=== PATIENT | female | born 1955 | race Caucasian/White ===

== ENCOUNTER 2017-05-01 10:25 | Inpatient (IN) ==
[2017-05-01] MEDS ORDERED: ONDANSETRON 4 MG/2 ML VIAL IV PRN (10:46)
[2017-05-01] MEDS ORDERED: ONDANSETRON 4 MG/2 ML VIAL ONE (10:57)
--- NOTE | 2017-05-01 10:58 | Emergency Department Note ---
Arrival - Arrival Chief Complaint: Shortness of Breath Stated Complaint: chest pain,SOB,nauseated ED Nursing Triage Note: Pt c/o SOB and CP x 4 days. 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 Mode of Arrival: Wheelchair Limitations: No Limitations Source: Patient, RN Notes Reviewed Time Seen by Provider: 05/01/17 10:45 - History of Present Illness HPI Narrative: Patient is a 62-year-old white female routinely followed by Dr. Cooper with a known history of valvular heart disease. Patient complains today of a 3-4 day history of chest pain and shortness of breath. Chest pain is a tightness and was relieved by nitroglycerin. Patient complains of dyspnea on exertion. She underwent a left heart cath on March 14, 2017 which revealed no obstructive coronary artery disease but revealed 2-3+ aortic regurgitation with moderate elevation of LVEDP at 20 mmHg. Onset (ago): day(s) (4) Consistency: intermittent Severity: moderate Allergies/Adverse Reactions: Allergies Allergy/AdvReac Type Severity Reaction Status Date / Time No Known Allergies Allergy Unverified 10/17/16 15:05 Home Medications: Home Medications Medication Instructions Recorded Confirmed Type ALPRAZolam [Xanax] 1 mg PO BEDTIME 04/05/16 03/14/17 History HYDROcodone/ACETAMIN 10-325 [[place]ocoa 1 tablet PO Q8H PRN 04/05/16 03/14/17 History 10-325] Morphine Sulfate [Morphine Sulfate 60 mg PO TID 04/05/16 03/14/17 History ER] Carvedilol 6.25 mg PO BID 03/13/17 03/14/17 History Nitroglycerin Sl Tab [Nitrostat] 0.4 mg SL Q5M PRN 03/13/17 03/14/17 History Omeprazole 20 mg PO DAILY 03/13/17 03/14/17 History traZODone [Desyrel] 50 mg PO BEDTIME 03/13/17 03/14/17 History ALPRAZolam [Alprazolam] 0.5 mg PO DIRECTED 03/14/17 03/14/17 History Aspirin [Ecotrin] 81 mg PO DAILY 03/14/17 03/14/17 History Review of System - Review of System 12 point system: reviewed and no additional remarkable complaints except as stated - Review of System Cardiovascular: Present: chest pain, dyspnea on exertion, orthopnea. Absent: palpitations, edema Gastrointestinal: Present: nausea. Absent: vomiting Medical,Surgical,& Family Hx - Medical History Cardio: History of: Hypertension, Valvular Heart Disease Psychological: History of: Anxiety Disorders, Depression Neurology: No history of: Seizures Respiratory: History of: Respiratory Problems ("spot" on right lung) Musculoskeletal: History of: Back/Neck Problems (chronic neck/back pain), Osteoporosis - Surgical History Cardiac Surgeries: Sugical HX of: Cardiac Catheterization (Dr Cooper) - Social History Smoking Status: Never smoker Exam Vital Signs: Vital Signs Temperature 96.5 F L 05/01/17 10:30 Pulse Rate 107 H 05/01/17 10:30 Respiratory Rate 22 05/01/17 10:30 Blood Pressure 131/78 05/01/17 10:30 O2 Sat by Pulse Oximetry 97 05/01/17 10:30 GENERAL: This is a well-nourished well-developed white female in no apparent distress. VITAL SIGNS: Reviewed HEENT: Head is atraumatic and normocephalic. Pupils are equal round react to light. Extraocular movements are intact. Oropharynx is benign with moist mucous membranes. NECK: Neck is soft and supple without tenderness. There are no masses. There is no lymphadenopathy. LUNGS: Lungs are clear to auscultation. Chest rises symmetrically. There is no chest wall tenderness. CV: Heart is rapid rate regular rhythm with 2/6 systolic ejection murmur loudest at the left sternal border and 2/6 blowing diastolic murmur loudest at the left sternal border. ABDOMEN: Abdomen is soft, nontender to palpation. There are no abdominal abnormal masses palpated. There is no organomegaly. Bowel sounds are present and active. SKIN: Skin is warm and dry. No rash. EXTREMITIES: Patient has full range of motion without tenderness. There is no pedal edema. NEUROLOGIC: Awake alert and oriented 4. Cranial nerves II through XII are grossly intact. Motor is 5 over 5 in all extremities bilaterally. Course - Consultations Consultation #1: Discussed with Dr. Akhtar. Patient will be seen in the emergency department. Time: 11:56 Results - Labs CBC & BMP: 05/01/17 11:01 05/01/17 11:01 Lab Results: I have reviewed the patients labs Labs: Laboratory Tests 05/01/17 11:01 INR 1.1 Laboratory Tests 05/01/17 11:01 Troponin I 1.350 H - EKG EKG results: interpreted by ERMD - Impressions EKG: Sinus tachycardia with a rate of 106, T-wave inversion anterolaterally with ST segment depression inferiorly consistent with ischemia. - Diagnostic Findings Procedure: Chest x-ray: image reviewed by me (Increased pulmonary markings bilaterally.) Disposition Clinical Impression: Chest pain, Aortic insufficiency, Dyspnea, Non-ST elevation TN (NSTEMI) Case discussed with: patient Disposition: Still a Patient Condition: Guarded Time of Disposition: 12:00
[2017-05-01] MEDS ORDERED: METOPROLOL TARTRATE 5 MG/5 ML VIAL IV STA (11:01)
--- NOTE | 2017-05-01 11:04 | XRay Report ---
XR chest 1V portable Indication: Shortness of breath Comparison: 14 March 2017 Findings: The heart and mediastinum are normal in size and configuration. The pulmonary vascularity is normal in caliber. No lung infiltrates, effusions, pneumothorax or other abnormality is demonstrated. Impression: No acute cardiopulmonary disease. PROCEDURE INTERPRETED AT [facility] DEPARTMENT OF RADIOLOGY Final Report Signed by: Dr. Gianluca Arango
[2017-05-01 11:17] LABS: Basophils % 0.2 % (0.0-0.8); Eosinophils # 0.1 10*3/uL (0.0-0.87); Hematocrit 39.9 VOL% (35.7-47.0); Hemoglobin 13.8 GM/DL (12.0-16.0); Immature Granulocytes % 0.2 %; Immature Granulocytes Absolute 0.02 #; Lymphocytes # 1.7 10*3/uL (1.4-4.0); Lymphocytes % 19.8 % (21.3-54.2); Mean Corpuscular HGB Conc 34.6 GM/DL (32-36); Mean Corpuscular Hemoglobin 30 PG (27-34); Mean Corpuscular Volume 86.7 FL (87-102); Mean Platelet Volume 10.2 FL (9.6-12.0); Monocytes # 0.4 10*3/uL (0.11-0.8); Neutrophils # 6.4 10*3/uL (1.4-7.4); Neutrophils % 73.8 % (38.7-73.9); Platelet Count 244 T/CUMM (130-400); Red Cell Distribution Width 12.5 % (9.3-17.3); White Blood Count 8.6 T/CUMM (4-12)
[2017-05-01 11:25] LABS: INR 1.1; PT Patient Result 11.1 SECS; Partial Thromboplastin Time 30.5 SECS (0-40)
[2017-05-01] MEDS ORDERED: METOPROLOL TARTRATE 5 MG/5 ML VIAL IV ONE (11:48)
[2017-05-01 11:54] LABS: Albumin 3.9 G/DL (3.4-5.0); Bilirubin,Total 0.5 MG/DL (0.2-1.0); Calcium 9.5 MG/DL (8.5-10.1); Osmolality,Calculated 276.5 MOS/KG (273-304); Potassium 3.7 MMOL/L (3.5-5.1); Total Protein 7.7 G/DL (6.4-8.3)
[2017-05-01 11:56] LABS: Troponin I Only 1.35 NG/ML (0.00-0.045)
[2017-05-01] MEDS ORDERED: ENOXAPARIN 60 MG/0.6 ML SYRINGE SUBCUT STA (11:57)
[2017-05-01] MEDS ORDERED: NITROGLYCERIN 2% OINT 1 INCH/GM PACK TOP STA (11:58)
[2017-05-01] MEDS ORDERED: ASPIRIN 325 MG TABLET PO STA (11:59)
[2017-05-01 12:03] LABS: Apearance,Urine CLEAR (Clear); Bilirubin,Urine Negative (Negative); Blood, Urine Negative (Negative); Glucose,Urine (UA) Negative (Negative); Ketones,Urine Negative (Negative); Mucus,Urine Occasional /LPF (Occasional); Nitrite,Urine Negative (Negative); Protein,Urine Negative; RBC,Urine 1 /HPF (0-4); Squamous Epithelial Cell,Urine Occasional /HPF (0-10); Urine Color Yellow (Yellow); Urine Specific Gravity 1.008 (1.001-1.035); Urine Urobilinogen < 2.0 EU/DL (0.2-1.0); WBC,Urine 2 /HPF (0-6)
[2017-05-01] MEDS ORDERED: ENOXAPARIN 60 MG/0.6 ML SYRINGE ONE (12:17)
[2017-05-01] MEDS ORDERED: NITROGLYCERIN 2% OINT 1 INCH/GM PACK TOP ONE (12:17)
[2017-05-01] MEDS ORDERED: ASPIRIN 325 MG TABLET ONE (12:18)
[2017-05-01] MEDS ORDERED: ACETAMINOPHEN 325 MG TABLET PO PRN (13:00)
[2017-05-01] MEDS ORDERED: MAGNESIUM SULF RIDER 2 GM in PREMIX 1 EACH IV PRN (13:00)
[2017-05-01] MEDS ORDERED: MAGNESIUM SULF RIDER 4 GM in PREMIX 1 EACH IV PRN (13:00)
[2017-05-01] MEDS ORDERED: POTASSIUM CHLORIDE 20 MEQ TABLET PO PRN (13:00)
--- NOTE | 2017-05-01 13:49 | Cardiology History & Physical ---
Assessment and Plan - Time spent with patient Time spent with patient: Greater than 30 minutes (1) Chest pain Status: Acute Assessment and plan: SEE PLAN OF CARE LISTED BELOW. Current Visit: Yes (2) Aortic regurgitation Status: Acute Assessment and plan: SEE PLAN OF CARE LISTED BELOW. Current Visit: Yes (3) Anxiety and depression Status: Chronic Assessment and plan: SEE PLAN OF CARE LISTED BELOW. Current Visit: Yes (4) Dyspnea on exertion Status: Chronic Assessment and plan: SEE PLAN OF CARE LISTED BELOW. Current Visit: Yes (5) Mild CAD Status: Acute Assessment and plan: SEE PLAN OF CARE LISTED BELOW. Current Visit: No (6) Elevated troponin Status: Acute Assessment and plan: SEE PLAN OF CARE LISTED BELOW. Current Visit: Yes (7) Congestive heart failure Status: Acute Assessment and plan: SEE PLAN OF CARE LISTED BELOW. Current Visit: Yes Qualifiers: Congestive heart failure type: unspecified congestive heart failure type Congestive heart failure chronicity: acute Qualified Code(s): I50.9 - Heart failure, unspecified (8) Hypertension Status: Chronic Assessment and plan: SEE PLAN OF CARE LISTED BELOW. Current Visit: Yes (9) Pulmonary nodule Status: Chronic Assessment and plan: SEE PLAN OF CARE LISTED BELOW. Current Visit: Yes (10) GERD (gastroesophageal reflux disease) Status: Chronic Assessment and plan: SEE PLAN OF CARE LISTED BELOW. Current Visit: Yes (11) UTI (urinary tract infection) Status: Acute Assessment and plan: SEE PLAN OF CARE LISTED BELOW. 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 Dasilva is a 62 year old female with known history of mild, nonobstructive coronary artery disease, routinely followed by Dr. Childers. Cardiac risk factors include: Hypertension, sedentary lifestyle, advanced age and family history of coronary artery disease (mother). Lifetime non-smoker. Past medical history includes: Osterreicher syndrome, 2-3+ aortic regurgitation, right long solitary pulmonary nodule without change (most likely not cancer per Dr. Rodney Aviles), GERD, anxiety and depression. Echocardiogram March 07, 2017 revealed normal systolic function, EF 55%. Grade 1 diastolic dysfunction. Mild (1+) MR. Mild TR and moderate to severe aortic regurgitation. Estimated pulmonary artery systolic pressure 30 mmHg. Patient just recently underwent heart catheterization March 14, 2017 which revealed no significant obstructive coronary disease and 2-3+ aortic regurgitation. Normal left ventricular systolic function, 60%. No significant aortic valve gradient. At that time, anxiety was felt to be playing a role in her chest pain and shortness of breath. Dr. Cooper did not believe that her aortic regurgitation was severe enough to need intervention at this time. Plan was to watch this closely and recheck echocardiogram in the next 6-12 months. Patient presented to [facility] for further evaluation of chest pain and shortness of breath. She reports that she was laying down in bed when she suddenly began experiencing left-sided chest pain. She tells me that it was located right under her left breast. She describes it as a stabbing /pressure type pain. She took a sublingual nitroglycerin which then relieved her pain. Altogether this lasted approximately 1 minute and 30 seconds. Was without radiation. Associated with shortness of breath, nausea and diaphoresis. She then reports that her chest pain returned approximately 30 minutes later. She took another nitroglycerin which then quickly resolved her pain a second time. This also lasted around 1 minute and 30 seconds. She is unable to identify any specific alleviating or aggravating factors. Unable to identify if there is no exertional component as she reports that she is very sedentary at home. Patient tells me that she has been under a lot of stress at home. She is currently taking care of her as he just recently underwent a major surgery. This is caused her a lot of stress and headache lately. Confirms orthopnea. She also confirms dyspnea on exertion. This is chronic for her and has been ongoing for at least one year. She reports that it has not necessarily changed or worsened since she underwent heart catheterization February of this year. Patient was concerned and felt that she be further evaluated in the emergency department. When she arrived in the ER, she received therapeutic dose of Lovenox as well as full dose aspirin. Cardiology was called to admit the patient. She will be admitted to the telemetry unit. Patient was seen and examined in the emergency department. She is currently without complaints of chest pain, heaviness or tightness. Denies shortness of breath. Troponin is bumped at 1.35. EKG does reveal T-wave inversions in anteriolateral and inferior leads. This is changed from her previous tracings. On exam, patient chest pain is not reproducible to light palpation. Patient just recently underwent heart catheterization February 2017 which revealed only mild CAD, no obstructive CAD noted. However, given patient's presentation, elevated cardiac biomarkers and EKG changes patient may benefit from repeat heart catheterization. I will keep patient n.p.o. Continue to cycle cardiac biomarkers and EKGs. Continue aspirin and beta-blockade. I will add lipid panel to patient's lab draw. I will further discuss with Dr. Akhtar and await his additional recommendations. IMPRESSION AND PLAN: 1. CHEST PAIN - Relieved with nitroglycerin. Troponin I 1.35. EKG does reveal T-wave inversion in anteriolateral and inferior leads. This is changed from her previous tracings. Patient just recently underwent heart catheterization February 2017 which revealed only mild CAD, no obstructive CAD noted. However, given patient's presentation, elevated cardiac biomarkers and EKG changes patient may benefit from repeat heart catheterization. Patient did receive therapeutic dose of Lovenox as well as full dose aspirin in the emergency department. I will keep patient n.p.o. Continue to cycle cardiac biomarkers and EKGs. Continue aspirin, nitrate and beta-blockade. I will add lipid panel to patient's lab draw. I will further discuss with Dr. Akhtar and await his additional recommendations. 2. ELEVATED TROPONIN - Troponin I 1.35. Continue to cycle cardiac biomarkers and EKGs. See above. 3. DYSPNEA ON EXERTION - This is chronic. This is most likely secondary to her moderate to severe aortic regurgitation. No need to repeat echocardiogram as she just had one last month. Will discuss with Dr. Akhtar regarding further management of this. Patient may be eligible for aortic valve replacement. I will add d-dimer to patient's lab draw. 4. CONGESTIVE HEART FAILURE - BNP 1654. I suspect that this is related to patient's aortic regurgitation. I will add IV Lasix. Monitor strict I's and O' s and daily weights. Continue beta-blockade. Blood pressure is unable to tolerate initiation of GENNY inhibitor or ARB. Will attempt to introduce this medication prior to discharge. 5. HYPERTENSION - Well controlled with beta-blockade. Will monitor blood pressure and adjust medications accordingly. 6. MODERATE TO SEVERE AORTIC REGURGITATION - Moderate to severe aortic regurgitation noted her echocardiogram February of this year. At that time, Dr. childers did not feel like this would require surgery. Original plan was to watch this and repeat echocardiogram in 6-12 months. I will further discuss with Dr. Akhtar and await his additional recommendations. 7. CHRONIC PULMONARY NODULE - Followed by Dr. Aviles. Per Dr. Cooper's note this is unchanged and Dr. Aviles does not feel like this is cancer. Continue to follow with Dr. Aviles on an outpatient basis. 8. GERD - Continue PPI. 9. ANXIETY/DEPRESSION - Continue home medications. Will adjust as needed. 10. ACUTE UTI - Bactrim initiated. Will await urine culture. Home Medications Medication Instructions Recorded Confirmed Type ALPRAZolam [Xanax] 1 mg PO BEDTIME 04/05/16 05/01/17 History HYDROcodone/ACETAMIN 10-325 [[place] 1 tablet PO Q8H PRN 04/05/16 05/01/17 History 10-325] Morphine Sulfate [Morphine Sulfate 60 mg PO TID 04/05/16 05/01/17 History ER] Carvedilol 6.25 mg PO BID 03/13/17 05/01/17 History Nitroglycerin Sl Tab [Nitrostat] 0.4 mg SL Q5M PRN 03/13/17 05/01/17 History Omeprazole 20 mg PO DAILY 03/13/17 05/01/17 History traZODone [Desyrel] 50 mg PO BEDTIME 03/13/17 05/01/17 History ALPRAZolam [Alprazolam] 0.5 mg PO BID@0800,1200 03/14/17 05/01/17 History Aspirin [Ecotrin] 81 mg PO DAILY 03/14/17 05/01/17 History Allergies Allergy/AdvReac Type Severity Reaction Status Date / Time No Known Allergies Allergy Unverified 10/17/16 15:05 - Constitutional Constitutional: Present: as per HPI, fatigue, headache(s), lethargy, malaise. Absent: chills, fever(s), weight gain, weight loss - Cardiovascular Cardiovascular: Present: as per HPI, chest pain at rest, diaphoresis, dyspnea, dyspnea on exertion, lightheadedness, orthopnea, PND. Absent: edema, radiating jaw, neck or arm pain, palpitations - Respiratory Respiratory: Present: as per HPI, dyspnea, dyspnea on exertion. Absent: hemoptysis, wheezing, snoring, pain on inspiration, change in phlegm color - Gastrointestinal Gastrointestinal: Present: as per HPI, heartburn, nausea. Absent: change in bowel habits, coffee ground emesis, hematemesis, hematochezia, melena, vomiting - Neurological Neurological: Present: as per HPI, dizziness. Absent: abnormal speech, behavioral changes, frequent falls, syncope - Psychiatric Psychiatric: Present: as per HPI, anxiety, depression, other (Stress) - Hematologic/Lymphatic Hematologic/Lymphatic: Present: as per HPI. Absent: easy bleeding, easy bruising Medical,Surgical,& Family Hx - Medical History Cardio: History of: CAD (Mild CAD), Hypertension, Valvular Heart Disease Psychological: History of: Anxiety Disorders, Depression Neurology: No history of: Seizures Respiratory: History of: Respiratory Problems ("spot" on right lung) Musculoskeletal: History of: Back/Neck Problems (chronic neck/back pain), Osteoporosis - Surgical History Cardiac Surgeries: Sugical HX of: Cardiac Catheterization (Dr Cooper) - Family History Family History: Reports;: Family Heart Disease - Social History Smoking Status: Never smoker Type of Drug Use: None Marital Status: Lives With:: Spouse Functional capacity: independent ambulation Cardiology Physical Exam - Constitutional Vitals: Vital Signs Temp Pulse Resp BP Pulse Ox 96.5 F L 81 18 110/60 100 05/01/17 10:30 05/01/17 12:30 05/01/17 12:30 05/01/17 12:30 05/01/17 12:30 Intake and Output 04/30/17 05/01/17 05/01/17 22:59 06:59 14:59 Other: Weight 106 lb Patient Weight 05/02/17 06:59 Weight 106 lb Exam: General: Appears well with no apparent distress. Pleasant and cooperative. Appears comfortable. HEENT: PERRL, normocephalic, atraumatic. Mucous membranes moist. No jaundice noted. Conjunctiva moist and clear, sclerae anicteric Neck: No JVD/HJR, no thyromegaly or lymphadenopathy noted. No carotid bruit appreciated Cardiac: Regular rate and rhythm. Grade 3 systolic murmur. Lungs: Clear to auscultation without accessory muscle use to assist the respiratory pattern. Oxygen via nasal cannula. Abdomen: Soft, bowel sounds normoactive. Nontender and nondistended. No abdominal bruit or thrill noted. No masses noted. Extremities: No clubbing, cyanosis noted. No edema noted. Upper extremity pulses 2+. Lower extremity pulses 2+. Capillary refill less than 3 seconds. Skin: No unusual lesions or rashes. No skin breakdown appreciated. Neuro: Awake, alert and oriented 3. Moves all extremities well without hemiparesis or paralysis. No essential tremor is appreciated. Result/EKG - Labs CBC & BMP: 05/01/17 11:01 05/01/17 11:01 Lab Results: I have reviewed the past 24 hour labs Labs: Laboratory Results - last 24 hr 05/01/17 05/01/17 05/01/17 11:01 11:01 11:01 WBC 8.6 RBC 4.60 Hgb 13.8 Hct 39.9 MCV 86.7 L MCH 30 MCHC 34.6 RDW 12.5 Plt Count 244 MPV 10.2 Neut % (Auto) 73.8 Lymph % (Auto) 19.8 L [place] % (Auto) 5.0 Eos % (Auto) 1.0 Baso % (Auto) 0.2 Neut # (Auto) 6.4 Lymph # (Auto) 1.7 [place] # (Auto) 0.4 Eos # (Auto) 0.1 Baso # (Auto) 0.0 Immature Gran % 0.2 Nucleated RBC % 0.0 Immature Gran # 0.02 Nucleated RBCs # 0.00 Immature Plt Fraction 0.0 INR 1.1 PT Patient/Control Mix 11.1 Circ Anticoag PTT 30.5 Sodium 139 Potassium 3.7 Chloride 103 Carbon Dioxide 28 Anion Gap 11.7 BUN 9 Creatinine 0.70 GFR Calculation 75 BUN/Creatinine Ratio 12.00 Glucose 111 H Calculated Osmolality 276.5 Calcium 9.5 Total Bilirubin 0.50 AST 19 ALT 15 Alkaline Phosphatase 101 Troponin I 1.350 H B-Natriuretic Peptide Total Protein 7.7 Albumin 3.9 Globulin 3.8 H Albumin/Globulin Ratio 1.0 L Urine Color Urine Appearance Urine pH Ur Specific [place] Urine Protein Urine Glucose (UA) Urine Ketones Urine Blood Urine Nitrate Urine Bilirubin Urine Urobilinogen Urine Leukocytes Urine RBC Urine WBC Ur Squamous Epith Cells Urine Mucus Ur Culture Indicated? 05/01/17 05/01/17 11:01 11:01 WBC RBC Hgb Hct MCV MCH MCHC RDW Plt Count MPV Neut % (Auto) Lymph % (Auto) [place] % (Auto) Eos % (Auto) Baso % (Auto) Neut # (Auto) Lymph # (Auto) [place] # (Auto) Eos # (Auto) Baso # (Auto) Immature Gran % Nucleated RBC % Immature Gran # Nucleated RBCs # Immature Plt Fraction INR PT Patient/Control Mix Circ Anticoag PTT Sodium Potassium Chloride Carbon Dioxide Anion Gap BUN Creatinine GFR Calculation BUN/Creatinine Ratio Glucose Calculated Osmolality Calcium Total Bilirubin AST ALT Alkaline Phosphatase Troponin I B-Natriuretic Peptide 1654 H Total Protein Albumin Globulin Albumin/Globulin Ratio Urine Color Yellow Urine Appearance Clear Urine pH 6.0 Ur Specific [place] 1.008 Urine Protein Negative Urine Glucose (UA) Negative Urine Ketones Negative Urine Blood Negative Urine Nitrate Negative Urine Bilirubin Negative Urine Urobilinogen < 2.0 H Urine Leukocytes Moderate H Urine RBC 1 Urine WBC 2 Ur Squamous Epith Cells Occasional Urine Mucus Occasional Ur Culture Indicated? Results to follow
[2017-05-01] MEDS: SULFAMETHOX/TRIMETHOPRIM 800-160 MG TABLET PO SCH ×2 (16:18→21:06)
[2017-05-01] MEDS: FUROSEMIDE 40 MG/4 ML VIAL IV SCH ×2 (16:18→21:07)
[2017-05-01] MEDS: ONDANSETRON 4 MG/2 ML VIAL IV PRN ×2 (16:19→23:26)
--- NOTE | 2017-05-01 16:19 | Order Completion Report ---
See report scanned to EMR
[2017-05-01] MEDS: MORPHINE ER 30 MG TABLET PO SCH ×2 (16:26→21:05)
--- NOTE | 2017-05-01 16:47 | CT Report ---
CT ANGIOGRAM CHEST Technique: Axial CT images of the chest were obtained during the arterial and venous phases of contrast injection. 3-D vascular MIPS reconstructions and multiplanar reformats were evaluated. Omnipaque 350, 100 cc. Clinical history: Shortness of breath, nausea, chest pain Comparison: Chest CT dated 07/13/2016 CTA FINDINGS: No evidence of a descending or descending thoracic aortic aneurysm. No evidence of aortic dissection or focal ulceration. No significant atherosclerotic plaque is identified in 5. Proximal great vessels are mildly tortuous but otherwise widely patent. Pulmonary arteries are also widely patent with no filling defects to suggest pulmonary emboli. NON-CTA FINDINGS: The visualized neck base is unremarkable for abnormal enhancement or adenopathy. Thyroid gland appears within normal limits.. Heart and great vessels appear grossly unremarkable. There is no pericardial effusion. Lungs are predominantly clear with minimal posterior basilar atelectatic changes. Minimal opacity along the right major fissure is indeterminate but may represent subsegmental atelectasis. Additional 1.2 cm noncalcified nodule within the periphery of the right lower lobe is unchanged from the June 2016 study and may represent a noncalcified granulomatous lesion. Central airways are patent. The included upper abdomen demonstrates no acute abnormality. There is mild distention of the bile ducts. This is similar to prior. There is no gallstones identified.. Prominent scoliotic deformity of the thoracolumbar spine is noted with multiple levels treated with PMMA cement for prior vertebral body compression fractures. Impression: No evidence of acute arterial injury or other abnormality within the chest or upper abdomen. No evidence of pulmonary emboli. No other acute abnormality within the chest or upper abdomen to explain patient's symptoms. Other incidental findings as above. PROCEDURE INTERPRETED AT [facility] DEPARTMENT OF RADIOLOGY Final Report Signed by: Lamont Payan
[2017-05-01] MEDS: NITROGLYCERIN 2% OINT 1 INCH/GM PACK TOP SCH (17:30)
[2017-05-01 18:10] LABS: Troponin I Only 1.34 NG/ML (0.00-0.045)
[2017-05-01] MEDS ORDERED: INFLUENZA VIRUS VACCINE 0.5 ML SYRINGE IM ONE (18:21)
--- NOTE | 2017-05-01 19:54 | Order Completion Report ---
See report scanned to EMR
[2017-05-01] MEDS ORDERED: CARVEDILOL 12.5 MG TABLET PO SCH (21:00)
[2017-05-01] MEDS ORDERED: MORPHINE ER 30 MG TABLET PO SCH (21:00)
[2017-05-01] MEDS ORDERED: CARVEDILOL 6.25 MG TABLET PO SCH (21:00)
[2017-05-01] MEDS: ALPRAZolam 0.5 MG TABLET PO SCH (21:04)
[2017-05-01] MEDS: ATORVASTATIN 40 MG TABLET PO SCH (21:05)
[2017-05-01] MEDS: ZALEPLON 5 MG CAPSULE PO PRN (21:05)
[2017-05-01] MEDS: CARVEDILOL 12.5 MG TABLET PO SCH (21:06)
[2017-05-01 21:24] LABS: CKMB % 6.4 %
[2017-05-01 21:30] LABS: Troponin I Only 0.904 NG/ML (0.00-0.045)
[2017-05-01 23:21] LABS: CKMB % 5.9 %
[2017-05-01 23:24] LABS: Troponin I Only 1.03 NG/ML (0.00-0.045)
[2017-05-01] MEDS ORDERED: ENOXAPARIN 60 MG/0.6 ML SYRINGE SUBCUT SCH (23:30)
[2017-05-02] MEDS: NITROGLYCERIN 2% OINT 1 INCH/GM PACK TOP SCH ×4 (01:14→17:13)
[2017-05-02] MEDS: ONDANSETRON 4 MG/2 ML VIAL IV PRN ×3 (04:27→16:15)
--- NOTE | 2017-05-02 08:08 | Order Completion Report ---
See report scanned to EMR
[2017-05-02 08:24] LABS: Basophils % 0.4 % (0.0-0.8); Eosinophils # 0.2 10*3/uL (0.0-0.87); Eosinophils % 2.2 % (0.00-10.9); Hematocrit 40.9 VOL% (35.7-47.0); Immature Granulocytes % 0.3 %; Immature Granulocytes Absolute 0.02 #; Lymphocytes # 2.6 10*3/uL (1.4-4.0); Lymphocytes % 35.9 % (21.3-54.2); Mean Corpuscular HGB Conc 34.2 GM/DL (32-36); Mean Corpuscular Hemoglobin 30 PG (27-34); Mean Corpuscular Volume 88.5 FL (87-102); Mean Platelet Volume 10.8 FL (9.6-12.0); Monocytes # 0.4 10*3/uL (0.11-0.8); Monocytes % 5.4 % (1.7-12.7); Neutrophils % 55.8 % (38.7-73.9); Platelet Count 253 T/CUMM (130-400); Red Blood Count 4.62 MC/CUMM (3.8-5.5); Red Cell Distribution Width 12.7 % (9.3-17.3); White Blood Count 7.2 T/CUMM (4-12)
[2017-05-02 08:47] LABS: Calcium 8.8 MG/DL (8.5-10.1); Magnesium 1.9 MG/DL (1.8-2.4); Osmolality,Calculated 277.4 MOS/KG (273-304); Potassium 3.4 MMOL/L (3.5-5.1); Risk Ratio 3.4
[2017-05-02] MEDS: CARVEDILOL 12.5 MG TABLET PO SCH (09:11)
[2017-05-02] MEDS: FUROSEMIDE 40 MG/4 ML VIAL IV SCH ×2 (09:11→16:15)
[2017-05-02] MEDS ORDERED: CARVEDILOL 12.5 MG TABLET PO SCH (09:17)
[2017-05-02] MEDS: ASPIRIN EC 81 MG TABLET PO SCH (09:19)
[2017-05-02] MEDS: PANTOPRAZOLE 40 MG TABLET PO SCH (09:19)
[2017-05-02] MEDS: SULFAMETHOX/TRIMETHOPRIM 800-160 MG TABLET PO SCH ×2 (09:19→21:16)
[2017-05-02] MEDS: MORPHINE ER 30 MG TABLET PO SCH ×3 (09:20→21:15)
--- NOTE | 2017-05-02 11:44 | Cardiology Progress Note ---
Assessment and Plan (1) Chest pain Status: Acute Assessment and plan: SEE PLAN OF CARE LISTED BELOW. Current Visit: Yes (2) Aortic regurgitation Status: Acute Assessment and plan: SEE PLAN OF CARE LISTED BELOW. Current Visit: Yes (3) Anxiety and depression Status: Chronic Assessment and plan: SEE PLAN OF CARE LISTED BELOW. Current Visit: Yes (4) Dyspnea on exertion Status: Chronic Assessment and plan: SEE PLAN OF CARE LISTED BELOW. Current Visit: Yes (5) Mild CAD Status: Acute Assessment and plan: SEE PLAN OF CARE LISTED BELOW. Current Visit: No (6) Elevated troponin Status: Acute Assessment and plan: SEE PLAN OF CARE LISTED BELOW. Current Visit: Yes (7) Congestive heart failure Status: Acute Assessment and plan: SEE PLAN OF CARE LISTED BELOW. Current Visit: Yes Qualifiers: Congestive heart failure type: unspecified congestive heart failure type Congestive heart failure chronicity: acute Qualified Code(s): I50.9 - Heart failure, unspecified (8) Hypertension Status: Chronic Assessment and plan: SEE PLAN OF CARE LISTED BELOW. Current Visit: Yes (9) Pulmonary nodule Status: Chronic Assessment and plan: SEE PLAN OF CARE LISTED BELOW. Current Visit: Yes (10) GERD (gastroesophageal reflux disease) Status: Chronic Assessment and plan: SEE PLAN OF CARE LISTED BELOW. Current Visit: Yes (11) UTI (urinary tract infection) Status: Acute Assessment and plan: SEE PLAN OF CARE LISTED BELOW. Current Visit: Yes (12) Takotsubo cardiomyopathy Status: Acute Assessment and plan: SEE PLAN OF CARE LISTED BELOW. Current Visit: Yes Cardiology - PN: Subj Interval history: NIGHTMAN: Dr. Childers SUMMARY Ms. Dasilva is a 62 year old female with known history of mild, nonobstructive coronary artery disease, routinely followed by Dr. Childers. Cardiac risk factors include: Hypertension, sedentary lifestyle, advanced age and family history of coronary artery disease (mother). Lifetime non-smoker. Past medical history includes: Osterreicher syndrome, 2-3+ aortic regurgitation, right long solitary pulmonary nodule without change (most likely not cancer per Dr. Rodney Aviles), GERD, anxiety and depression. Echocardiogram March 07, 2017 revealed normal systolic function, EF 55%. Grade 1 diastolic dysfunction. Mild (1+) MR. Mild TR and moderate to severe aortic regurgitation. Estimated pulmonary artery systolic pressure 30 mmHg. Patient just recently underwent heart catheterization March 14, 2017 which revealed no significant obstructive coronary disease and 2-3+ aortic regurgitation. Normal left ventricular systolic function, 60%. No significant aortic valve gradient. At that time, anxiety was felt to be playing a role in her chest pain and shortness of breath. Dr. Cooper did not believe that her aortic regurgitation was severe enough to need intervention at this time. Plan was to watch this closely and recheck echocardiogram in the next 6-12 months. Patient was admitted to the cardiology service with chest pain, borderline elevated cardiac biomarkers (flat in nature) with diffuse recall changes to EKG. She does have history of moderate to severe AI. Chest CT angiogram was performed to rule out acute aortic pathology. Negative d-dimer. BNP greater than 1600. Echocardiogram yesterday revealed TakoTsubo cardiomyopathy, EF 30%. MAY 02, 2017 Patient was seen and examined on the telemetry unit. She is currently without complaints of chest pain, heaviness or tightness. She confirms nausea and vomiting. Daughter at bedside and says that she has been having abdominal issues for quite some time now. LFTs were reviewed and are within normal limits. Patient may benefit from GI consultation. This will be considered. Echocardiogram yesterday revealed TakoTsubo cardiomyopathy. Patient did have borderline hypotension overnight. We will decrease patient's beta-blockade back down to 12.5 twice daily. Creatinine this morning 1.5. We will monitor this closely while diuresing. We will continue to diurese with IV Lasix. Will attempt to transition patient tomorrow if she has diuresed well. Will monitor strict I's and O's and daily weights. REVIEW OF SYSTEMS: Cardiac: Denies chest pain, heaviness or tightness. GI: Confirms nausea, vomiting Respiratory: Denies shortness of breath, orthopnea IMPRESSION AND PLAN: 1. CHEST PAIN - Resolved. Symptomology felt to be secondary to her new diagnosis of TakoTsubo cardiomyopathy. This will be treated with high-dose beta -blockade and diuretics. Continue aspirin, nitrates and lipid-lowering agent. 2. ELEVATED TROPONIN - Flat in nature. Suspect this is related to patient's TakoTsubo cardiomyopathy. 3. ACUTE CONGESTIVE HEART FAILURE, SYSTOLIC DYSFUNCTION - BNP 1654. I suspect that this is related to patient's moderate to severe AI as well as new systolic dysfunction (TakoTsubo cardiomyopathy). Continue IV Lasix. Monitor strict I's and O's and daily weights. Continue beta-blockade. Blood pressure/ renal function is unable to tolerate initiation of GENNY inhibitor or ARB. Will attempt to introduce this medication prior to discharge. 4. HYPERTENSION - Well controlled with beta-blockade. Will monitor blood pressure and adjust medications accordingly. 5. MODERATE TO SEVERE AORTIC REGURGITATION - Moderate to severe aortic regurgitation noted her echocardiogram February of this year. At that time, Dr. childers did not feel like this would require surgery. Original plan was to watch this and repeat echocardiogram in 6-12 months. Patient will most likely need aortic valve replacement in the future. Will defer this to her primary barrel bander as an outpatient. 6. CHRONIC PULMONARY NODULE - Followed by Dr. Aviles. Per Dr. Cooper's note this is unchanged and Dr. Aviles does not feel like this is cancer. Continue to follow with Dr. Aviles on an outpatient basis. 7. GERD - Continue PPI. 8. ANXIETY/DEPRESSION - Continue home medications. Will adjust as needed. 9. ACUTE UTI - Bactrim initiated. Will await urine culture and sensitivity. 10.TAKOTSUBO CARDIOMYOPATHY - EF 30%. Previous cardiac cath revealed nonobstructive CAD. Will continue high-dose beta-blockade and diuretics. Will monitor renal function closely with diuretics. Exam (Progress Note) - Constitutional Vitals: Period Temp Pulse Resp BP Sys/Amor Pulse Ox Last 24 Hr 96.0 F-97.3 F 64-93 16-20 92-130/38-63 96-100 Exam: General: Appears well with no apparent distress. Pleasant and cooperative. Appears comfortable. HEENT: PERRL, normocephalic, atraumatic. Mucous membranes moist. No jaundice noted. Conjunctiva moist and clear, sclerae anicteric Neck: No JVD/HJR, no thyromegaly or lymphadenopathy noted. No carotid bruit appreciated Cardiac: Regular rate and rhythm. Grade 3 systolic murmur. Lungs: Clear to auscultation without accessory muscle use to assist the respiratory pattern. Oxygen via nasal cannula. Abdomen: Soft, bowel sounds normoactive. Nontender and nondistended. No abdominal bruit or thrill noted. No masses noted. Extremities: No clubbing, cyanosis noted. No edema noted. Upper extremity pulses 2+. Lower extremity pulses 2+. Capillary refill less than 3 seconds. Skin: No unusual lesions or rashes. No skin breakdown appreciated. Neuro: Awake, alert and oriented 3. Moves all extremities well without hemiparesis or paralysis. No essential tremor is appreciated. Result/EKG - Labs CBC & BMP: 05/02/17 07:49 05/02/17 07:49 Lab Results: I have reviewed the past 24 hour labs Labs: Laboratory Results - last 24 hr 05/01/17 05/01/17 05/01/17 11:01 11:01 11:01 WBC 8.6 RBC 4.60 Hgb 13.8 Hct 39.9 MCV 86.7 L MCH 30 MCHC 34.6 RDW 12.5 Plt Count 244 MPV 10.2 Neut % (Auto) 73.8 Lymph % (Auto) 19.8 L [place] % (Auto) 5.0 Eos % (Auto) 1.0 Baso % (Auto) 0.2 Neut # (Auto) 6.4 Lymph # (Auto) 1.7 [place] # (Auto) 0.4 Eos # (Auto) 0.1 Baso # (Auto) 0.0 Immature Gran % 0.2 Nucleated RBC % 0.0 Immature Gran # 0.02 Nucleated RBCs # 0.00 Immature Plt Fraction 0.0 INR 1.1 PT Patient/Control Mix 11.1 D-Dimer, Quantitative Circ Anticoag PTT 30.5 Sodium 139 Potassium 3.7 Chloride 103 Carbon Dioxide 28 Anion Gap 11.7 BUN 9 Creatinine 0.70 GFR Calculation 75 BUN/Creatinine Ratio 12.00 Glucose 111 H Calculated Osmolality 276.5 Calcium 9.5 Magnesium Total Bilirubin 0.50 AST 19 ALT 15 Alkaline Phosphatase 101 Total Creatine Kinase CK-MB (CK-2) CK and CKMB Interp Troponin I 1.350 H B-Natriuretic Peptide Total Protein 7.7 Albumin 3.9 Globulin 3.8 H Albumin/Globulin Ratio 1.0 L Triglycerides Cholesterol LDL Cholesterol VLDL Cholesterol HDL Cholesterol Heart Disease Risk Ratio Urine Color Urine Appearance Urine pH Ur Specific [place] Urine Protein Urine Glucose (UA) Urine Ketones Urine Blood Urine Nitrate Urine Bilirubin Urine Urobilinogen Urine Leukocytes Urine RBC Urine WBC Ur Squamous Epith Cells Urine Mucus Ur Culture Indicated? 05/01/17 05/01/17 05/01/17 11:01 11:01 16:46 WBC RBC Hgb Hct MCV MCH MCHC RDW Plt Count MPV Neut % (Auto) Lymph % (Auto) [place] % (Auto) Eos % (Auto) Baso % (Auto) Neut # (Auto) Lymph # (Auto) [place] # (Auto) Eos # (Auto) Baso # (Auto) Immature Gran % Nucleated RBC % Immature Gran # Nucleated RBCs # Immature Plt Fraction INR PT Patient/Control Mix D-Dimer, Quantitative Circ Anticoag PTT Sodium Potassium Chloride Carbon Dioxide Anion Gap BUN Creatinine GFR Calculation BUN/Creatinine Ratio Glucose Calculated Osmolality Calcium Magnesium Total Bilirubin AST ALT Alkaline Phosphatase Total Creatine Kinase 145 CK-MB (CK-2) 10.2 H CK and CKMB Interp 7.0 Troponin I 1.340 H B-Natriuretic Peptide 1654 H Total Protein Albumin Globulin Albumin/Globulin Ratio Triglycerides Cholesterol LDL Cholesterol VLDL Cholesterol HDL Cholesterol Heart Disease Risk Ratio Urine Color Yellow Urine Appearance Clear Urine pH 6.0 Ur Specific [place] 1.008 Urine Protein Negative Urine Glucose (UA) Negative Urine Ketones Negative Urine Blood Negative Urine Nitrate Negative Urine Bilirubin Negative Urine Urobilinogen < 2.0 H Urine Leukocytes Moderate H Urine RBC 1 Urine WBC 2 Ur Squamous Epith Cells Occasional Urine Mucus Occasional Ur Culture Indicated? Results to follow 05/01/17 05/01/17 05/01/17 16:46 20:15 22:26 WBC RBC Hgb Hct MCV MCH MCHC RDW Plt Count MPV Neut % (Auto) Lymph % (Auto) [place] % (Auto) Eos % (Auto) Baso % (Auto) Neut # (Auto) Lymph # (Auto) [place] # (Auto) Eos # (Auto) Baso # (Auto) Immature Gran % Nucleated RBC % Immature Gran # Nucleated RBCs # Immature Plt Fraction INR PT Patient/Control Mix D-Dimer, Quantitative <= 0.5 Circ Anticoag PTT Sodium Potassium Chloride Carbon Dioxide Anion Gap BUN Creatinine GFR Calculation BUN/Creatinine Ratio Glucose Calculated Osmolality Calcium Magnesium Total Bilirubin AST ALT Alkaline Phosphatase Total Creatine Kinase 126 112 CK-MB (CK-2) 8.1 H 6.6 H CK and CKMB Interp 6.4 5.9 Troponin I 0.904 H D 1.030 H B-Natriuretic Peptide Total Protein Albumin Globulin Albumin/Globulin Ratio Triglycerides Cholesterol LDL Cholesterol VLDL Cholesterol HDL Cholesterol Heart Disease Risk Ratio Urine Color Urine Appearance Urine pH Ur Specific [place] Urine Protein Urine Glucose (UA) Urine Ketones Urine Blood Urine Nitrate Urine Bilirubin Urine Urobilinogen Urine Leukocytes Urine RBC Urine WBC Ur Squamous Epith Cells Urine Mucus Ur Culture Indicated? 05/02/17 05/02/17 07:49 07:49 WBC 7.2 RBC 4.62 Hgb 14.0 Hct 40.9 MCV 88.5 MCH 30 MCHC 34.2 RDW 12.7 Plt Count 253 MPV 10.8 Neut % (Auto) 55.8 Lymph % (Auto) 35.9 [place] % (Auto) 5.4 Eos % (Auto) 2.2 Baso % (Auto) 0.4 Neut # (Auto) 4.0 Lymph # (Auto) 2.6 [place] # (Auto) 0.4 Eos # (Auto) 0.2 Baso # (Auto) 0.0 Immature Gran % 0.3 Nucleated RBC % 0.0 Immature Gran # 0.02 Nucleated RBCs # 0.00 Immature Plt Fraction 0.0 INR PT Patient/Control Mix D-Dimer, Quantitative Circ Anticoag PTT Sodium 140 Potassium 3.4 L Chloride 98 Carbon Dioxide 36 H Anion Gap 9.4 BUN 13 Creatinine 1.50 H GFR Calculation 29 BUN/Creatinine Ratio 8.00 Glucose 75 Calculated Osmolality 277.4 Calcium 8.8 Magnesium 1.9 Total Bilirubin AST ALT Alkaline Phosphatase Total Creatine Kinase CK-MB (CK-2) CK and CKMB Interp Troponin I B-Natriuretic Peptide Total Protein Albumin Globulin Albumin/Globulin Ratio Triglycerides 160 H Cholesterol 163 LDL Cholesterol 84.0 VLDL Cholesterol 32.0 HDL Cholesterol 48 Heart Disease Risk Ratio 3.40 Urine Color Urine Appearance Urine pH Ur Specific [place] Urine Protein Urine Glucose (UA) Urine Ketones Urine Blood Urine Nitrate Urine Bilirubin Urine Urobilinogen Urine Leukocytes Urine RBC Urine WBC Ur Squamous Epith Cells Urine Mucus Ur Culture Indicated? Specialty Discharge - Follow Up or Referrals
[2017-05-02] MEDS: ALPRAZolam 0.5 MG TABLET PO SCH ×2 (12:25→21:15)
[2017-05-02] MEDS: ENOXAPARIN 30 MG/0.3 ML SYRINGE SUBCUT SCH (12:25)
[2017-05-02] MEDS ORDERED: ENOXAPARIN 40 MG/0.4 ML SYRINGE SUBCUT SCH (13:00)
[2017-05-02] MEDS ORDERED: FUROSEMIDE 40 MG/4 ML VIAL IV SCH (16:00)
[2017-05-02] MEDS ORDERED: FUROSEMIDE 40 MG TABLET PO SCH (16:00)
[2017-05-02] MEDS: ATORVASTATIN 40 MG TABLET PO SCH (21:15)
[2017-05-02] MEDS: ZALEPLON 5 MG CAPSULE PO PRN (21:15)
[2017-05-02] MEDS: PROMETHAZINE 25 MG TABLET PO PRN (21:15)
[2017-05-02] MEDS: CARVEDILOL 25 MG TABLET PO SCH (21:16)
[2017-05-03] MEDS: NITROGLYCERIN 2% OINT 1 INCH/GM PACK TOP SCH ×5 (01:18→23:29)
[2017-05-03 02:28] LABS: Basophils % 0.4 % (0.0-0.8); Eosinophils # 0.2 10*3/uL (0.0-0.87); Eosinophils % 2.3 % (0.00-10.9); Hematocrit 44.9 VOL% (35.7-47.0); Hemoglobin 15.1 GM/DL (12.0-16.0); Immature Granulocytes % 0.2 %; Immature Granulocytes Absolute 0.02 #; Lymphocytes # 3.6 10*3/uL (1.4-4.0); Lymphocytes % 42.2 % (21.3-54.2); Mean Corpuscular HGB Conc 33.6 GM/DL (32-36); Mean Corpuscular Hemoglobin 30 PG (27-34); Mean Corpuscular Volume 88.9 FL (87-102); Mean Platelet Volume 10.8 FL (9.6-12.0); Monocytes # 0.5 10*3/uL (0.11-0.8); Monocytes % 5.8 % (1.7-12.7); Neutrophils # 4.2 10*3/uL (1.4-7.4); Neutrophils % 49.1 % (38.7-73.9); Platelet Count 251 T/CUMM (130-400); Red Blood Count 5.05 MC/CUMM (3.8-5.5); Red Cell Distribution Width 12.5 % (9.3-17.3); White Blood Count 8.6 T/CUMM (4-12)
[2017-05-03 02:55] LABS: Calcium 8.9 MG/DL (8.5-10.1); Magnesium 2.3 MG/DL (1.8-2.4); Magnesium 2.4 MG/DL (1.8-2.4); Osmolality,Calculated 275.8 MOS/KG (273-304); Potassium 3.7 MMOL/L (3.5-5.1); Potassium 3.8 MMOL/L (3.5-5.1)
--- NOTE | 2017-05-03 07:35 | Order Completion Report ---
See report scanned to EMR
[2017-05-03] MEDS: PROMETHAZINE 25 MG TABLET PO PRN (07:40)
[2017-05-03] MEDS: ALPRAZolam 0.5 MG TABLET PO SCH ×4 (07:40→21:30)
[2017-05-03] MEDS: ASPIRIN EC 81 MG TABLET PO SCH (08:20)
[2017-05-03] MEDS: PANTOPRAZOLE 40 MG TABLET PO SCH (08:20)
[2017-05-03] MEDS: FUROSEMIDE 40 MG/4 ML VIAL IV SCH (08:21)
[2017-05-03] MEDS: MORPHINE ER 30 MG TABLET PO SCH ×3 (08:21→21:30)
[2017-05-03] MEDS: CARVEDILOL 25 MG TABLET PO SCH ×2 (08:22→21:32)
[2017-05-03] MEDS: SULFAMETHOX/TRIMETHOPRIM 800-160 MG TABLET PO SCH ×2 (08:22→21:32)
[2017-05-03] MEDS: ENOXAPARIN 30 MG/0.3 ML SYRINGE SUBCUT SCH (11:20)
--- NOTE | 2017-05-03 12:23 | Cardiology Progress Note ---
Assessment and Plan (1) Chest pain Status: Acute Assessment and plan: SEE PLAN OF CARE LISTED BELOW. Current Visit: Yes (2) Aortic regurgitation Status: Acute Assessment and plan: SEE PLAN OF CARE LISTED BELOW. Current Visit: Yes (3) Anxiety and depression Status: Chronic Assessment and plan: SEE PLAN OF CARE LISTED BELOW. Current Visit: Yes (4) Dyspnea on exertion Status: Chronic Assessment and plan: SEE PLAN OF CARE LISTED BELOW. Current Visit: Yes (5) Mild CAD Status: Acute Assessment and plan: SEE PLAN OF CARE LISTED BELOW. Current Visit: No (6) Elevated troponin Status: Acute Assessment and plan: SEE PLAN OF CARE LISTED BELOW. Current Visit: Yes (7) Congestive heart failure Status: Acute Assessment and plan: SEE PLAN OF CARE LISTED BELOW. Current Visit: Yes Qualifiers: Congestive heart failure type: unspecified congestive heart failure type Congestive heart failure chronicity: acute Qualified Code(s): I50.9 - Heart failure, unspecified (8) Hypertension Status: Chronic Assessment and plan: SEE PLAN OF CARE LISTED BELOW. Current Visit: Yes (9) Pulmonary nodule Status: Chronic Assessment and plan: SEE PLAN OF CARE LISTED BELOW. Current Visit: Yes (10) GERD (gastroesophageal reflux disease) Status: Chronic Assessment and plan: SEE PLAN OF CARE LISTED BELOW. Current Visit: Yes (11) UTI (urinary tract infection) Status: Acute Assessment and plan: SEE PLAN OF CARE LISTED BELOW. Current Visit: Yes (12) Takotsubo cardiomyopathy Status: Acute Assessment and plan: SEE PLAN OF CARE LISTED BELOW. Current Visit: Yes (13) Nausea Status: Chronic Assessment and plan: SEE PLAN OF CARE LISTED BELOW. Current Visit: Yes (14) Osteogenesis imperfecta Status: Chronic Assessment and plan: SEE PLAN OF CARE LISTED BELOW. Current Visit: Yes Cardiology - PN: Subj Interval history: PACKER AND CARRY OUT: Dr. Childers SUMMARY Ms. Dasilva is a 62 year old female with known history of mild, nonobstructive coronary artery disease, routinely followed by Dr. Childers. Cardiac risk factors include: Hypertension, sedentary lifestyle, advanced age and family history of coronary artery disease (mother). Lifetime non-smoker. Past medical history includes: Osterreicher syndrome, 2-3+ aortic regurgitation, right long solitary pulmonary nodule without change (most likely not cancer per Dr. Rodney Aviles), GERD, anxiety and depression. Echocardiogram March 07, 2017 revealed normal systolic function, EF 55%. Grade 1 diastolic dysfunction. Mild (1+) MR. Mild TR and moderate to severe aortic regurgitation. Estimated pulmonary artery systolic pressure 30 mmHg. Patient just recently underwent heart catheterization March 14, 2017 which revealed no significant obstructive coronary disease and 2-3+ aortic regurgitation. Normal left ventricular systolic function, 60%. No significant aortic valve gradient. At that time, anxiety was felt to be playing a role in her chest pain and shortness of breath. Dr. Cooper did not believe that her aortic regurgitation was severe enough to need intervention at this time. Plan was to watch this closely and recheck echocardiogram in the next 6-12 months. Patient was admitted to the cardiology service with chest pain, borderline elevated cardiac biomarkers (flat in nature) with diffuse recall changes to EKG. She does have history of moderate to severe AI. Chest CT angiogram was performed to rule out acute aortic pathology. Negative d-dimer. BNP greater than 1600. Echocardiogram yesterday revealed TakoTsubo cardiomyopathy, EF 30%. MAY 03, 2017 Patient was seen and examined on the telemetry unit. She is without complaint of chest pain, heaviness or tightness. On exam, she is lying flat without any overt orthopnea. Reports that her breathing continues to improve. Poor documentation of I's and O's. Will decrease patient's Lasix to p.o. She continues to be nauseated. She is within normal limits at admission. She reports that this is a chronic issue for her. She has been seen by [facility] in the past. I will discuss with Dr. Akhtar regarding GI consultation. Given the chronicity of the problem, I suspect this can be done as an outpatient. REVIEW OF SYSTEMS: Cardiac: Denies chest pain, heaviness or tightness. GI: Confirms nausea. No vomiting. Respiratory: Denies orthopnea. Confirms intermittent episodes of dyspnea. IMPRESSION AND PLAN: 1. CHEST PAIN - Resolved. Symptomology felt to be secondary to new diagnosis of TakoTsubo cardiomyopathy. This will be treated with high-dose beta-blockade and diuretics. Monitor carefully for bradycardia, has moderate to severe AI. Continue aspirin, nitrates and lipid-lowering agent. 2. ELEVATED TROPONIN - Flat in nature. Suspect this is related to patient's TakoTsubo cardiomyopathy. Continue aspirin, statin for nonobstructive CAD. Enzyme trend and presentation does not suggest recent embolic event or true ACS. 3. ACUTE CONGESTIVE HEART FAILURE, SYSTOLIC DYSFUNCTION - I suspect that this is related to patient's moderate to severe AI as well as new systolic dysfunction (TakoTsubo cardiomyopathy). Poor documentation of I's and O's. Patient's breathing is improving and I will decrease Lasix to p.o. dosing. Continue beta-blockade. Blood pressure/renal function is unable to tolerate initiation of GENNY inhibitor or ARB. Will attempt to introduce this medication prior to discharge. 4. HYPERTENSION - Well controlled with beta-blockade. Will monitor blood pressure and adjust medications accordingly. 5. MODERATE TO SEVERE AORTIC INSUFFICIENCY - Moderate to severe aortic regurgitation noted her echocardiogram February of this year. At that time, Dr. childers did not feel like this would require surgery. Original plan was to watch this and repeat echocardiogram in 6-12 months. Although the AI appears to be quite severe on echo, the LV was not dilated previously, this will need close follow-up. Patient will most likely need aortic valve replacement in the future. Will defer this to her primary toy parts former supervisor as an outpatient. 6. CHRONIC PULMONARY NODULE - Followed by Dr. Aviles. Per Dr. Cooper's note this is unchanged and Dr. Aviles does not feel like this is cancer. Continue to follow with Dr. Aviles on an outpatient basis. 7. GERD - Continue PPI. 8. ANXIETY/DEPRESSION - Continue home medications. Will adjust as needed. 9. ACUTE UTI - Bactrim initiated. Will await urine culture and sensitivity. 10.TAKOTSUBO CARDIOMYOPATHY - EF 30%. Previous cardiac cath revealed nonobstructive CAD. Will continue high-dose beta-blockade and diuretics. Will monitor renal function closely with diuretics. 11.NAUSEA - Patient continues to complain of nausea. She reports that this is a chronic issue for her. She has been seen by [facility] in the past. I will discuss with Dr. Akhtar regarding GI consultation. Given the chronicity of the problem, I suspect this can be done as an outpatient. 12.OSTEOGENESIS IMPERFECTA - Chronic, stable. Exam (Progress Note) - Constitutional Vitals: Period Temp Pulse Resp BP Sys/Amor Pulse Ox Last 24 Hr 5 F-98.5 F 64-71 16-20 112-139/41-55 97-100 Exam: General: Appears well with no apparent distress. Pleasant and cooperative. Appears comfortable. HEENT: PERRL, normocephalic, atraumatic. Mucous membranes moist. No jaundice noted. Conjunctiva moist and clear, sclerae anicteric Neck: No JVD/HJR, no thyromegaly or lymphadenopathy noted. No carotid bruit appreciated Cardiac: Regular rate and rhythm. Grade 3 systolic murmur. Lungs: Clear to auscultation without accessory muscle use to assist the respiratory pattern. Oxygen via nasal cannula. Abdomen: Soft, bowel sounds normoactive. Nontender and nondistended. No abdominal bruit or thrill noted. No masses noted. Extremities: No clubbing, cyanosis noted. No edema noted. Upper extremity pulses 2+. Lower extremity pulses 2+. Capillary refill less than 3 seconds. Skin: No unusual lesions or rashes. No skin breakdown appreciated. Neuro: Awake, alert and oriented 3. Moves all extremities well without hemiparesis or paralysis. No essential tremor is appreciated. Result/EKG - Labs CBC & BMP: 05/03/17 02:07 05/03/17 02:07 Lab Results: I have reviewed the past 24 hour labs Labs: Laboratory Results - last 24 hr 05/03/17 05/03/17 05/03/17 02:07 02:07 02:07 WBC 8.6 RBC 5.05 Hgb 15.1 Hct 44.9 MCV 88.9 MCH 30 MCHC 33.6 RDW 12.5 Plt Count 251 MPV 10.8 Neut % (Auto) 49.1 Lymph % (Auto) 42.2 [place] % (Auto) 5.8 Eos % (Auto) 2.3 Baso % (Auto) 0.4 Neut # (Auto) 4.2 Lymph # (Auto) 3.6 [place] # (Auto) 0.5 Eos # (Auto) 0.2 Baso # (Auto) 0.0 Immature Gran % 0.2 Nucleated RBC % 0.0 Immature Gran # 0.02 Nucleated RBCs # 0.00 Immature Plt Fraction 0.0 Sodium 136 137 Potassium 3.7 3.8 Chloride 94 L 95 L Carbon Dioxide 36 H 38 H Anion Gap 9.7 7.8 BUN 22 H 20 H Creatinine 1.60 H 1.60 H GFR Calculation 27 27 BUN/Creatinine Ratio 13.00 12.00 Glucose 96 90 Calculated Osmolality 274.0 275.8 Calcium 8.9 9.0 Magnesium 2.4 2.3 Specialty Discharge - Follow Up or Referrals
[2017-05-03] MEDS: FUROSEMIDE 40 MG TABLET PO SCH (15:25)
[2017-05-03] MEDS: ATORVASTATIN 40 MG TABLET PO SCH (21:29)
[2017-05-03] MEDS: ZALEPLON 5 MG CAPSULE PO PRN (21:36)
[2017-05-04] MEDS: PROMETHAZINE 25 MG TABLET PO PRN (01:40)
[2017-05-04 04:21] LABS: Basophils % 0.2 % (0.0-0.8); Eosinophils # 0.2 10*3/uL (0.0-0.87); Eosinophils % 3.1 % (0.00-10.9); Hematocrit 36.7 VOL% (35.7-47.0); Hemoglobin 12.5 GM/DL (12.0-16.0); Immature Granulocytes % 0.2 %; Immature Granulocytes Absolute 0.01 #; Lymphocytes # 1.9 10*3/uL (1.4-4.0); Lymphocytes % 35.8 % (21.3-54.2); Mean Corpuscular HGB Conc 34.1 GM/DL (32-36); Mean Corpuscular Hemoglobin 30 PG (27-34); Mean Corpuscular Volume 88.4 FL (87-102); Mean Platelet Volume 10.7 FL (9.6-12.0); Monocytes # 0.4 10*3/uL (0.11-0.8); Monocytes % 8.3 % (1.7-12.7); Neutrophils # 2.7 10*3/uL (1.4-7.4); Neutrophils % 52.4 % (38.7-73.9); Platelet Count 188 T/CUMM (130-400); Red Blood Count 4.15 MC/CUMM (3.8-5.5); Red Cell Distribution Width 12.4 % (9.3-17.3); White Blood Count 5.2 T/CUMM (4-12)
[2017-05-04 04:59] LABS: Calcium 8.5 MG/DL (8.5-10.1); Magnesium 2.2 MG/DL (1.8-2.4); Osmolality,Calculated 276.8 MOS/KG (273-304); Potassium 4.1 MMOL/L (3.5-5.1)
[2017-05-04] MEDS: NITROGLYCERIN 2% OINT 1 INCH/GM PACK TOP SCH ×3 (07:02→17:35)
[2017-05-04] MEDS: CARVEDILOL 25 MG TABLET PO SCH ×2 (08:31→20:56)
[2017-05-04] MEDS: ASPIRIN EC 81 MG TABLET PO SCH (08:31)
[2017-05-04] MEDS: SULFAMETHOX/TRIMETHOPRIM 800-160 MG TABLET PO SCH (08:32)
[2017-05-04] MEDS: ALPRAZolam 0.5 MG TABLET PO SCH ×3 (08:32→20:55)
[2017-05-04] MEDS: PANTOPRAZOLE 40 MG TABLET PO SCH (08:32)
[2017-05-04] MEDS: MORPHINE ER 30 MG TABLET PO SCH ×3 (08:32→20:54)
[2017-05-04] MEDS: FUROSEMIDE 40 MG TABLET PO SCH ×2 (08:32→15:08)
--- NOTE | 2017-05-04 08:45 | Physician Query Form ---
CLICK EDIT DOCUMENT TO SELECT QUERY ANSWER --> OK --> SIGN Blanca Houston RN, CCDS Certified Clinical Dog Sitter W) [phone] (f) [phone] [email or web address]: Make your selection(s) from the choices in EACH section by typing an "x" and enter comments in the comment section. Please use your independent medical judgment in providing your response. This request does not imply that any particular answer is desired or expected. CLINICAL INDICATORS: (Providers should not edit this section) The medical record indicate that the patient was admitted with chest pain thought to be suggestive of TakoTsubo Cardiomyopathy, CHF, creatinine of .70 on the 2nd that increased to 1.50 on the 3rd GFR of 79 that decreased to 29 on the 3rd and the patient was beginning treated with Lasix PO/IV. Clarify which of the following most accurately represents the patient's renal status: (x) Acute kidney injury (non-traumatic) ( ) Acute renal failure ( ) Acute renal failure with underlying Chronic Kidney Disease (CKD) - please provide stage below ( ) Acute renal failure with pathological renal lesion ( ) Acute renal failure with necrosis ( ) tubular ( ) medullary ( ) cortical ( ) CKD - please provide stage below ( ) End Stage Renal Disease ( ) Acute interstitial nephritis ( ) Hepatorenal syndrome ( ) Other, please specify: ( ) Clinically unable to determine Chronic Kidney Disease Stages Source: National Kid[employer] ( ) Stage I (eGFR > or = 90) ( ) Stage II (eGFR 60 - 89) ( ) Stage III (eGFR 30 - 59) ( ) Stage IV (eGFR 15 - 29) ( ) Stage V (eGFR < 15 or dialysis) COMMENTS: PLEASE ALSO DOCUMENT RESPONSE IN PROGRESS NOTES AND/OR DISCHARGE SUMMARY Use of terms such as suspected, likely, or probable (associated with a specific diagnosis that is being evaluated, monitored, or treated as if it exists) are acceptable and can be restated in the discharge summary if not ruled out. MTDD
[2017-05-04] MEDS: LISINOPRIL 5 MG TABLET PO SCH (09:39)
[2017-05-04] MEDS ORDERED: ENOXAPARIN 40 MG/0.4 ML SYRINGE SUBCUT SCH (12:00)
--- NOTE | 2017-05-04 12:12 | Cardiology Progress Note ---
Assessment and Plan (1) Chest pain Status: Acute Assessment and plan: SEE PLAN OF CARE LISTED BELOW. Current Visit: Yes (2) Aortic regurgitation Status: Acute Assessment and plan: SEE PLAN OF CARE LISTED BELOW. Current Visit: Yes (3) Anxiety and depression Status: Chronic Assessment and plan: SEE PLAN OF CARE LISTED BELOW. Current Visit: Yes (4) Dyspnea on exertion Status: Chronic Assessment and plan: SEE PLAN OF CARE LISTED BELOW. Current Visit: Yes (5) Mild CAD Status: Acute Assessment and plan: SEE PLAN OF CARE LISTED BELOW. Current Visit: No (6) Elevated troponin Status: Acute Assessment and plan: SEE PLAN OF CARE LISTED BELOW. Current Visit: Yes (7) Congestive heart failure Status: Acute Assessment and plan: SEE PLAN OF CARE LISTED BELOW. Current Visit: Yes Qualifiers: Congestive heart failure type: unspecified congestive heart failure type Congestive heart failure chronicity: acute Qualified Code(s): I50.9 - Heart failure, unspecified (8) Hypertension Status: Chronic Assessment and plan: SEE PLAN OF CARE LISTED BELOW. Current Visit: Yes (9) Pulmonary nodule Status: Chronic Assessment and plan: SEE PLAN OF CARE LISTED BELOW. Current Visit: Yes (10) GERD (gastroesophageal reflux disease) Status: Chronic Assessment and plan: SEE PLAN OF CARE LISTED BELOW. Current Visit: Yes (11) UTI (urinary tract infection) Status: Acute Assessment and plan: SEE PLAN OF CARE LISTED BELOW. Current Visit: Yes (12) Takotsubo cardiomyopathy Status: Acute Assessment and plan: SEE PLAN OF CARE LISTED BELOW. Current Visit: Yes (13) Nausea Status: Chronic Assessment and plan: SEE PLAN OF CARE LISTED BELOW. Current Visit: Yes (14) Osteogenesis imperfecta Status: Chronic Assessment and plan: SEE PLAN OF CARE LISTED BELOW. Current Visit: Yes (15) Debilitated Status: Chronic Assessment and plan: SEE PLAN OF CARE LISTED BELOW. Current Visit: Yes Cardiology - PN: Subj Interval history: MANAGER ENVIRONMENTAL HEALTH: Dr. Childers SUMMARY Ms. Dasilva is a 62 year old female with known history of mild, nonobstructive coronary artery disease, routinely followed by Dr. Childers. Cardiac risk factors include: Hypertension, sedentary lifestyle, advanced age and family history of coronary artery disease (mother). Lifetime non-smoker. Past medical history includes: Osterreicher syndrome, 2-3+ aortic regurgitation, right long solitary pulmonary nodule without change (most likely not cancer per Dr. Rodney Aviles), GERD, anxiety and depression. Echocardiogram March 07, 2017 revealed normal systolic function, EF 55%. Grade 1 diastolic dysfunction. Mild (1+) MR. Mild TR and moderate to severe aortic regurgitation. Estimated pulmonary artery systolic pressure 30 mmHg. Patient just recently underwent heart catheterization March 14, 2017 which revealed no significant obstructive coronary disease and 2-3+ aortic regurgitation. Normal left ventricular systolic function, 60%. No significant aortic valve gradient. At that time, anxiety was felt to be playing a role in her chest pain and shortness of breath. Dr. Cooper did not believe that her aortic regurgitation was severe enough to need intervention at this time. Plan was to watch this closely and recheck echocardiogram in the next 6-12 months. Patient was admitted to the cardiology service with chest pain, borderline elevated cardiac biomarkers (flat in nature) with diffuse recall changes to EKG. She does have history of moderate to severe AI. Chest CT angiogram was performed to rule out acute aortic pathology. Negative d-dimer. BNP greater than 1600. Echocardiogram yesterday revealed TakoTsubo cardiomyopathy, EF 30%. MAY 04, 2017 Patient was seen and examined on the telemetry unit along with Dr. Akhtar. She reports that she feels much better today. She is no longer feeling nauseous. She is without complaints of chest pain, heaviness or tightness. Without overt orthopnea or dyspnea. She continues to be very weak. For that reason, I have consulted physical therapy and case management today. Dr. Akhtar and I discussed with her the option of swing bed. She will think about this. Case management will attempt to place her in swing bed of choice. It is possible, that patient may be discharged to swing bed later today. If she declined swing bed, she may be eligible for discharge later tomorrow. Do not feel as patient is strong enough to go home by herself today. I will further discuss with Dr. Akhtar and await his additional recommendations. REVIEW OF SYSTEMS: Cardiac: Denies chest pain, heaviness or tightness. GI: Denies nausea and vomiting. Denies abdominal pain. Respiratory: Denies orthopnea. Denies dyspnea. IMPRESSION AND PLAN: 1. CHEST PAIN - Resolved. Symptomology felt to be secondary to new diagnosis of TakoTsubo cardiomyopathy. This will be treated with high-dose beta-blockade and diuretics. I have added GENNY inhibitor today. Monitor carefully for bradycardia, has moderate to severe AI. Continue aspirin, nitrates and lipid- lowering agent. 2. ELEVATED TROPONIN - Flat in nature. Suspect this is related to patient's TakoTsubo cardiomyopathy. Continue aspirin, statin for nonobstructive CAD. Enzyme trend and presentation does not suggest recent embolic event or true ACS. 3. ACUTE CONGESTIVE HEART FAILURE, SYSTOLIC DYSFUNCTION - Compensated. I suspect that this is related to patient's moderate to severe AI as well as new systolic dysfunction (TakoTsubo cardiomyopathy). She has lost 5 pounds since admission. Continue beta-blockade. I have added GENNY inhibitor today. Continue to monitor strict I's and O's and daily weights. 4. HYPERTENSION - Well controlled with beta-blockade. GENNY inhibitor added today. Will monitor blood pressure and adjust medications accordingly. 5. MODERATE TO SEVERE AORTIC INSUFFICIENCY - Moderate to severe aortic regurgitation noted her echocardiogram February of this year. At that time, Dr. childers did not feel like this would require surgery. Original plan was to watch this and repeat echocardiogram in 6-12 months. Although the AI appears to be quite severe on echo, the LV was not dilated previously, this will need close follow-up. Patient will most likely need aortic valve replacement in the future. Will defer this to her primary engine mechanic as an outpatient. 6. CHRONIC PULMONARY NODULE - Followed by Dr. Aviles. Per Dr. Cooper's note this is unchanged and Dr. Aviles does not feel like this is cancer. Continue to follow with Dr. Aviles on an outpatient basis. 7. GERD - Continue PPI. 8. ANXIETY/DEPRESSION - Continue home medications. Will adjust as needed. 9. ACUTE UTI - Antibiotic changed to ampicillin today given sensitivity. 10.TAKOTSUBO CARDIOMYOPATHY - EF 30%. Previous cardiac cath revealed nonobstructive CAD. Will continue high-dose beta-blockade and diuretics. GENNY inhibitor initiated today. Will monitor renal function closely with diuretics and GENNY inhibitor. 11.NAUSEA - Improved. 12.OSTEOGENESIS IMPERFECTA - Chronic, stable. 13. WEAK, DEBILITATED - CASE MANAGEMENT CONSULTED. PHYSICAL THERAPY ON BOARD. POSSIBLE SWING BED PLACEMENT. Exam (Progress Note) - Constitutional Vitals: Period Temp Pulse Resp BP Sys/Amor Pulse Ox Last 24 Hr 96.5 F-97.0 F 62-78 16-18 108-124/45-58 92-98 Exam: General: Appears well with no apparent distress. Pleasant and cooperative. Appears comfortable. HEENT: PERRL, normocephalic, atraumatic. Mucous membranes moist. No jaundice noted. Conjunctiva moist and clear, sclerae anicteric Neck: No JVD/HJR, no thyromegaly or lymphadenopathy noted. No carotid bruit appreciated Cardiac: Regular rate and rhythm. Grade 3 systolic murmur. Lungs: Clear to auscultation without accessory muscle use to assist the respiratory pattern. Oxygen via nasal cannula intermittently. Abdomen: Soft, bowel sounds normoactive. Nontender and nondistended. No abdominal bruit or thrill noted. No masses noted. Extremities: No clubbing, cyanosis noted. No edema noted. Upper extremity pulses 2+. Lower extremity pulses 2+. Capillary refill less than 3 seconds. Skin: No unusual lesions or rashes. No skin breakdown appreciated. Neuro: Awake, alert and oriented 3. Moves all extremities well without hemiparesis or paralysis. No essential tremor is appreciated. Result/EKG - Labs CBC & BMP: 05/04/17 04:02 05/04/17 04:02 Lab Results: I have reviewed the past 24 hour labs Labs: Laboratory Results - last 24 hr 05/04/17 05/04/17 04:02 04:02 WBC 5.2 D RBC 4.15 Hgb 12.5 D Hct 36.7 MCV 88.4 MCH 30 MCHC 34.1 RDW 12.4 Plt Count 188 D MPV 10.7 Neut % (Auto) 52.4 Lymph % (Auto) 35.8 [place] % (Auto) 8.3 Eos % (Auto) 3.1 Baso % (Auto) 0.2 Neut # (Auto) 2.7 Lymph # (Auto) 1.9 [place] # (Auto) 0.4 Eos # (Auto) 0.2 Baso # (Auto) 0.0 Immature Gran % 0.2 Nucleated RBC % 0.0 Immature Gran # 0.01 Nucleated RBCs # 0.00 Immature Plt Fraction 0.0 Sodium 137 Potassium 4.1 Chloride 95 L Carbon Dioxide 37 H Anion Gap 9.1 BUN 26 H Creatinine 1.20 H GFR Calculation 38 BUN/Creatinine Ratio 21.00 H Glucose 89 Calculated Osmolality 276.8 Calcium 8.5 Magnesium 2.2 Specialty Discharge - Follow Up or Referrals
[2017-05-04] MEDS: AMPICILLIN 500 MG CAPSULE PO SCH ×3 (13:40→20:55)
--- NOTE | 2017-05-04 14:40 | Discharge Summary ---
Hospital Course - Hospital Course Hospital Course: CLAIMS COLLECTOR: Dr. Childers SUMMARY Ms. Dasilva is a 62 year old female with known history of mild, nonobstructive coronary artery disease, routinely followed by Dr. Childers. Cardiac risk factors include: Hypertension, sedentary lifestyle, advanced age and family history of coronary artery disease (mother). Lifetime non-smoker. Past medical history includes: Osteogenesis imperfecta, moderate to severe AI, right lung solitary pulmonary nodule without change (most likely not cancer per Dr. Rodney Aviles), GERD, anxiety and depression. Echocardiogram March 07, 2017 revealed normal systolic function, EF 55%. Grade 1 diastolic dysfunction. Mild (1+) MR. Mild TR and moderate to severe aortic regurgitation. Estimated pulmonary artery systolic pressure 30 mmHg. Patient just recently underwent heart catheterization March 14, 2017 which revealed no significant obstructive coronary disease and 2-3+ aortic regurgitation. Normal left ventricular systolic function, 60%. No significant aortic valve gradient. At that time, anxiety was felt to be playing a role in her chest pain and shortness of breath. Dr. Cooper did not believe that her aortic regurgitation was severe enough to need intervention at this time. Plan was to watch this closely and recheck echocardiogram in the next 6-12 months. Patient was admitted to cardiology's service 05/01/17 with chest pain, borderline elevated cardiac biomarkers (flat in nature, did not suggest true ACS ) with diffuse changes to EKG. Given her history of moderate to severe AI, chest CT angiogram was performed to rule out acute aortic pathology. Negative d -dimer. Patient reported that she had been under a significant amount of stress and anxiety at home. Echocardiogram 05/01/17 revealed TakoTsubo cardiomyopathy with EF 30% and moderate to severe aortic valve regurgitation. Patient symptomology was felt to be secondary to her new diagnosis of TakoTsubo cardiomyopathy. Repeat heart catheterization was not felt necessary she had just underwent ischemic workup March 14, 2017 and was not noted to have any obstructive coronary artery disease. Treatment of her TakoTsubo cardiomyopathy was initiated with high-dose beta-blockade, diuretics and GENNY inhibitor. She has tolerated this medication regimen well. She has been without significant bradycardia. We will need to continue to monitor for bradycardia as an outpatient given her moderate to severe AI. We will defer further management of patient's severe aortic insufficiency to her primary appeals analyst, Dr. childers. Although the AI appears to be quite severe on echo, the LV was not dilated previously, this will need close follow-up. Patient will most likely need aortic valve replacement in the future. This will be further worked up and evaluated as an outpatient by Dr. childers. She was noted to have acute UTI admission. Culture was positive for strep agalactiae (group B). Sensitive to ampicillin. This medication was initiated. She will be discharged home with this medication as well. Patient does have history of Osteogenesis imperfecta and has been weak. Physical therapy was consulted and patient was encouraged to go to swing bed. However, patient declined swing bed placement. She reports that she would rather go home. I have instructed patient to avoid as much stress as possible. Keep her anxiety the level under control as this will help with her TakoTsubo cardiomyopathy. Patient will be set up with home health with physical therapy. She will be ready for discharge tomorrow, May 05 2017. She will be observed 1 more night and continue physical therapy treatment. Patient will need close follow-up of her renal function as she is being discharged home with new medication, GENNY inhibitor. She has been given a follow-up appointment with Dr. Childers in 1 week with EKG and BMP and magnesium. Patient is anxious for discharge home. Having felt that she has met maximal medical therapy, she will be discharged home in stable condition. Patient verbalizes understanding of discharge instructions and discharge medications. She will be observed 1 more night and continue physical therapy treatment. - Time spent with patient Time with patient DS: Greater than 30 minutes Diagnosis - Discharge Diagnosis (1) Chest pain Status: Resolved (2) Aortic regurgitation Status: Chronic (3) Anxiety and depression Status: Chronic (4) Dyspnea on exertion Status: Chronic (5) Mild CAD Status: Chronic (6) Congestive heart failure Status: Acute (7) Hypertension Status: Chronic (8) Pulmonary nodule Status: Chronic (9) GERD (gastroesophageal reflux disease) Status: Chronic (10) UTI (urinary tract infection) Status: Acute (11) Takotsubo cardiomyopathy Status: Acute (12) Nausea Status: Resolved (13) Osteogenesis imperfecta Status: Chronic (14) Debilitated Status: Chronic (15) Stress at home Status: Acute Specialty Discharge - Follow Up or Referrals Follow up with: Nick Cooper MD [Physician] - 1 Week (EKG, BMP and MAGNESIUM ) Discharge Plan - Discharge Data Disposition: Disch To Home/Self Care Condition at Discharge: Stable Discharge Diet: heart healthy, low fat, low cholesterol, low salt diet Activity: as per physical therapy Hygiene: no restrictions Weight Bearing at Discharge: weight bear as tolerated Driving: not until seen by doctor Contact your physician if you experience:: fever over 101, Difficulty voiding, Redness or swelling, Nausea/Vomiting, Shortness of breath, Bleeding, pain uncontrolled by pain medications - Discharge Medications New Ampicillin Cap 500 mg PO QID #19 capsule Carvedilol [Coreg] 25 mg PO BID #60 tablet Furosemide Tab [Lasix Tab] 40 mg PO BID DIURETIC #60 tablet Lisinopril [Prinivil] 5 mg PO DAILY #30 tablet Potassium Chloride 20 meq PO DAILY #30 tab.er.prt Atorvastatin [Lipitor] 40 mg PO BEDTIME #30 tablet Continue ALPRAZolam [Xanax] 1 mg PO BEDTIME HYDROcodone/ACETAMIN 10-325 [[place] 10-325] 1 tablet PO Q8H PRN PRN Reason: Pain Morphine Sulfate [Morphine Sulfate ER] 60 mg PO TID traZODone [Desyrel] 50 mg PO BEDTIME Omeprazole 20 mg PO DAILY ALPRAZolam [Alprazolam] 0.5 mg PO BID@0800,1200 Nitroglycerin Sl Tab [Nitrostat] 0.4 mg SL Q5M PRN PRN Reason: Chest Pain Aspirin [Ecotrin] 81 mg PO DAILY Discontinued Carvedilol 6.25 mg PO BID - Follow Up or Referral Follow Up: Nick Cooper MD [Physician] - 2 Weeks (EKG, BMP) - Forms/Instructions Instructions: Myocardial Infarction (GEN), Heart Healthy Diet (GEN), Chronic Pain (DC) Exam - Constitutional Vitals: Period Temp Pulse Resp BP Sys/Amor Pulse Ox Last 24 Hr 96.5 F-98.7 F 62-78 14-18 108-124/45-62 92-98 Exam: General: Appears well with no apparent distress. Pleasant and cooperative. Appears comfortable. HEENT: PERRL, normocephalic, atraumatic. Mucous membranes moist. No jaundice noted. Conjunctiva moist and clear, sclerae anicteric Neck: No JVD/HJR, no thyromegaly or lymphadenopathy noted. No carotid bruit appreciated Cardiac: Regular rate and rhythm. Grade 3 systolic murmur. Lungs: Clear to auscultation without accessory muscle use to assist the respiratory pattern. Oxygen via nasal cannula intermittently. Abdomen: Soft, bowel sounds normoactive. Nontender and nondistended. No abdominal bruit or thrill noted. No masses noted. Extremities: No clubbing, cyanosis noted. No edema noted. Upper extremity pulses 2+. Lower extremity pulses 2+. Capillary refill less than 3 seconds. Skin: No unusual lesions or rashes. No skin breakdown appreciated. Neuro: Awake, alert and oriented 3. Moves all extremities well without hemiparesis or paralysis. No essential tremor is appreciated. Discharge Results Procedures and tests throughout hospitalization: Pending Orders 05/05/17 04:00 BMP w/ Mg [Basic Metabolic Panel w/Mg] IN AM Basic Metabolic Panel IN AM Comp Blood Count Auto Diff IN AM Magnesium IN AM Labs on day of discharge: Labs from last 24 hours 05/04/17 05/04/17 04:02 04:02 WBC 5.2 D RBC 4.15 Hgb 12.5 D Hct 36.7 MCV 88.4 MCH 30 MCHC 34.1 RDW 12.4 Plt Count 188 D MPV 10.7 Neut % (Auto) 52.4 Lymph % (Auto) 35.8 [place] % (Auto) 8.3 Eos % (Auto) 3.1 Baso % (Auto) 0.2 Neut # (Auto) 2.7 Lymph # (Auto) 1.9 [place] # (Auto) 0.4 Eos # (Auto) 0.2 Baso # (Auto) 0.0 Immature Gran % 0.2 Nucleated RBC % 0.0 Immature Gran # 0.01 Nucleated RBCs # 0.00 Immature Plt Fraction 0.0 Sodium 137 Potassium 4.1 Chloride 95 L Carbon Dioxide 37 H Anion Gap 9.1 BUN 26 H Creatinine 1.20 H GFR Calculation 38 BUN/Creatinine Ratio 21.00 H Glucose 89 Calculated Osmolality 276.8 Calcium 8.5 Magnesium 2.2 - Imaging and Cardiology Procedure: Chest x-ray: report reviewed by me, CT: report reviewed by me, Ultrasound: report reviewed by me DS: Provider Date of admission: 05/02/17 12:22 Primary care physician: Rohit Choudhary MD Attending physician on admission: Don Akhtar MD Consults: 05/01/17 13:05 Consult to Cardiac Rehabilitation [CONS] Routine Reason for Cardiac Rehabilitation: Risk Factor Modification Other Consult Comment: Evaluate and recommend 05/03/17 19:14 Consult to Case Mgmt/Social Srvs [CONS] Routine Reason for Case Mgmt/Social Srvs: Discharge Planning PT [Consult to Physical Therapy] [CONS] Routine Reason for Physical Therapy: Evaluate and Treat 05/04/17 09:18 Consult to Case Mgmt/Social Srvs [CONS] Routine Reason for Case Mgmt/Social Srvs: Discharge Planning Consult Comment: possible swing bed/rehab? 05/04/17 09:19 Consult to Physical Therapy [CONS] Routine Reason for Physical Therapy: Evaluate and Treat Start Therapy: Today Discharging clinician: Valery Garcia NP Expected date of discharge: 05/05/17
[2017-05-04] MEDS: ATORVASTATIN 40 MG TABLET PO SCH (20:55)
[2017-05-04] MEDS: ZALEPLON 5 MG CAPSULE PO PRN (20:55)
[2017-05-05 05:08] LABS: Basophils % 0.4 % (0.0-0.8); Eosinophils # 0.2 10*3/uL (0.0-0.87); Eosinophils % 4.2 % (0.00-10.9); Hematocrit 35.8 VOL% (35.7-47.0); Hemoglobin 12.3 GM/DL (12.0-16.0); Immature Granulocytes % 0.6 %; Immature Granulocytes Absolute 0.03 #; Lymphocytes # 2.1 10*3/uL (1.4-4.0); Lymphocytes % 41.1 % (21.3-54.2); Mean Corpuscular HGB Conc 34.4 GM/DL (32-36); Mean Corpuscular Hemoglobin 31 PG (27-34); Mean Corpuscular Volume 89.1 FL (87-102); Mean Platelet Volume 11.3 FL (9.6-12.0); Monocytes # 0.4 10*3/uL (0.11-0.8); Monocytes % 7.9 % (1.7-12.7); Neutrophils # 2.3 10*3/uL (1.4-7.4); Neutrophils % 45.8 % (38.7-73.9); Platelet Count 205 T/CUMM (130-400); Red Blood Count 4.02 MC/CUMM (3.8-5.5); Red Cell Distribution Width 12.5 % (9.3-17.3); White Blood Count 5.1 T/CUMM (4-12)
[2017-05-05 05:36] LABS: Calcium 8.3 MG/DL (8.5-10.1)
[2017-05-05 05:37] LABS: Potassium 4.3 MMOL/L (3.5-5.1)
[2017-05-05] MEDS: NITROGLYCERIN 2% OINT 1 INCH/GM PACK TOP SCH ×2 (07:53)
[2017-05-05] MEDS: AMPICILLIN 500 MG CAPSULE PO SCH (08:29)
[2017-05-05] MEDS: MORPHINE ER 30 MG TABLET PO SCH (08:29)
[2017-05-05] MEDS: LISINOPRIL 5 MG TABLET PO SCH (08:30)
[2017-05-05] MEDS: CARVEDILOL 25 MG TABLET PO SCH (08:30)
[2017-05-05] MEDS: PANTOPRAZOLE 40 MG TABLET PO SCH (08:30)
[2017-05-05] MEDS: FUROSEMIDE 40 MG TABLET PO SCH (08:30)
[2017-05-05] MEDS: ASPIRIN EC 81 MG TABLET PO SCH (08:30)
[2017-05-05] MEDS: ALPRAZolam 0.5 MG TABLET PO SCH (08:30)
[2017-05-05 09:36] VITALS: BP 132/70
--- NOTE | 2017-05-05 18:02 | Event Note ---
Interviewed and examined the patient personally. Discussed findings with the nurse practitioner. I agree with the assessment and plan, with additions as below. The EMR did not allow me to admit the AUTOMOBILE BODY CUSTOMIZER notes. 62-year-old female, followed by Dr. Cooper. History of CAD, she was admitted with chest pain, workup revealed possible cardiomyopathy. She also has moderate to severe AI. She responded well to medical management, anxiety lytics. Will be discharged home on increased beta blockers, anxiolytics, GENNY inhibitor, need close follow-up with Dr. Cooper.
== END 2017-05-05 11:06 | disposition home health service (06) | DRG 314 ==
LOC: N.ED 10:25 → N.EDINP 10:25 → N.TELEN 13:50
PROVIDERS: ADMIT Internal Medicine Clinical Cardiac Electrophysiology; ATTEND Internal Medicine Clinical Cardiac Electrophysiology

== ENCOUNTER 2017-08-23 15:25 | Inpatient (IN) ==
[2017-08-23] MEDS ORDERED: FUROSEMIDE 100 MG/10 ML VIAL IV STA (15:56)
[2017-08-23] MEDS ORDERED: LEVOFLOXACIN INJ 750 MG in PREMIX 1 EACH IV STA (15:56)
[2017-08-23] MEDS ORDERED: ONDANSETRON 4 MG/2 ML VIAL IV STA (15:56)
[2017-08-23] MEDS ORDERED: MAGNESIUM SULF RIDER 2 GM in PREMIX 1 EACH IV STA (15:56)
[2017-08-23] MEDS ORDERED: methylPREDNISolone SOD SUC 125 MG/2 ML VIAL IV STA (15:56)
[2017-08-23] MEDS ORDERED: ALBUTEROL 2.5 MG/3 ML NEB RESP TX SCH (16:00)
[2017-08-23 17:00] LABS: Basophils % 0.2 % (0.0-0.8); Eosinophils % 0.3 % (0.00-10.9); Hematocrit 35.8 VOL% (35.7-47.0); Hemoglobin 11.8 GM/DL (12.0-16.0); Immature Granulocytes % 0.4 %; Immature Granulocytes Absolute 0.04 #; Lymphocytes # 0.8 10*3/uL (1.4-4.0); Lymphocytes % 7.9 % (21.3-54.2); Mean Corpuscular Hemoglobin 30 PG (27-34); Mean Corpuscular Volume 91.6 FL (87-102); Mean Platelet Volume 10.8 FL (9.6-12.0); Monocytes # 0.5 10*3/uL (0.11-0.8); Monocytes % 4.8 % (1.7-12.7); Neutrophils # 8.4 10*3/uL (1.4-7.4); Neutrophils % 86.4 % (38.7-73.9); Platelet Count 190 T/CUMM (130-400); Red Blood Count 3.91 MC/CUMM (3.8-5.5); Red Cell Distribution Width 12.1 % (9.3-17.3); White Blood Count 9.7 T/CUMM (4-12)
[2017-08-23 17:15] LABS: PT Patient Result 10.9 SECS; Partial Thromboplastin Time 26.7 SECS (0-40)
[2017-08-23 17:23] LABS: Apearance,Urine Slightly Hazy (Clear); Bacteria,Urine Occasional /HPF (Few); Bilirubin,Urine Negative (Negative); Blood, Urine Negative (Negative); Glucose,Urine (UA) 50 mg/dL (Negative); Hyaline Casts,Urine 2 /LPF (0-3); Ketones,Urine Negative (Negative); Mucus,Urine Occasional /LPF (Occasional); Nitrite,Urine Negative (Negative); Protein,Urine 30 MG/DL; RBC,Urine 6 /HPF (0-4); Squamous Epithelial Cell,Urine Occasional /HPF (0-10); Urine Color Yellow (Yellow); Urine Specific Gravity 1.016 (1.001-1.035); Urine Urobilinogen < 2.0 EU/DL (0.2-1.0); WBC,Urine 4 /HPF (0-6)
[2017-08-23 17:27] LABS: Barbiturates Screen,Urine Negative (Negative); Benzodiazepines Screen,Urine Positive (Negative); Cannabinoid Screen,Urine Negative (Negative); Opiate Screen,Urine Positive (Negative); Phencyclidine Screen,Urine Negative (Negative)
[2017-08-23 17:35] LABS: Alanine Aminotransferase 13 U/L (13-56); Albumin 3.3 G/DL (3.4-5.0); Alkaline Phosphatase 145 U/L (45-117); Aspartate Amino Transferase 14 U/L (0-37); Blood Urea Nitrogen 11 MG/DL (7-18); Calcium 8.4 MG/DL (8.5-10.1); Total Protein 7.5 G/DL (6.4-8.3)
[2017-08-23 17:36] LABS: Glucose 136 MG/DL (74-106); Osmolality,Calculated 283.1 MOS/KG (273-304); Potassium 4.7 MMOL/L (3.5-5.1); Sodium 142 MMOL/L (136-145)
[2017-08-23] MEDS ORDERED: FUROSEMIDE 40 MG/4 ML VIAL ONE (17:38)
[2017-08-23] MEDS ORDERED: ONDANSETRON 4 MG/2 ML VIAL ONE (17:38)
[2017-08-23] MEDS ORDERED: LEVOFLOXACIN INJ 150 ML IV ONE (17:38)
[2017-08-23] MEDS ORDERED: methylPREDNISolone SOD SUC 125 MG/2 ML VIAL ONE (17:38)
[2017-08-23] MEDS ORDERED: MAGNESIUM SULF RIDER 50 ML IV ONE (17:39)
[2017-08-23] MEDS ORDERED: ALBUTEROL/IPRATROPIUM 3 ML NEB RESP TX PRN (19:49)
[2017-08-23] MEDS: ALPRAZolam 0.5 MG TABLET PO SCH (20:28)
[2017-08-23] MEDS: traZODone 50 MG TABLET PO SCH (20:29)
[2017-08-23 22:49] LABS: Troponin I Only 0.554 NG/ML (0.00-0.045)
[2017-08-23] MEDS: MORPHINE ER 30 MG TABLET PO SCH (23:53)
[2017-08-24] MEDS: MORPHINE ER 30 MG TABLET PO SCH ×3 (08:35→21:49)
[2017-08-24] MEDS: PANTOPRAZOLE 40 MG TABLET PO SCH (08:35)
[2017-08-24] MEDS: ALPRAZolam 0.5 MG TABLET PO SCH ×2 (08:35→21:26)
[2017-08-24] MEDS: FUROSEMIDE 40 MG/4 ML VIAL IV SCH ×2 (08:36→15:32)
[2017-08-24] MEDS ORDERED: ENOXAPARIN 60 MG/0.6 ML SYRINGE SUBCUT ONE (09:00)
[2017-08-24] MEDS ORDERED: ASPIRIN EC 325 MG TABLET PO SCH (09:00)
[2017-08-24 09:17] LABS: Calcium 8.8 MG/DL (8.5-10.1); Osmolality,Calculated 273.1 MOS/KG (273-304); Potassium 3.7 MMOL/L (3.5-5.1)
[2017-08-24] MEDS ORDERED: ASPIRIN EC 81 MG TABLET PO SCH (10:00)
[2017-08-24] MEDS: POTASSIUM CHLORIDE 20 MEQ TABLET PO SCH (10:42)
[2017-08-24] MEDS: CARVEDILOL 25 MG TABLET PO SCH ×2 (10:42→21:26)
[2017-08-24] MEDS: LISINOPRIL 5 MG TABLET PO SCH (10:42)
[2017-08-24] MEDS: ALPRAZolam 0.25 MG TABLET PO PRN ×2 (17:57→21:26)
[2017-08-24] MEDS: ATORVASTATIN 40 MG TABLET PO SCH (21:26)
[2017-08-24] MEDS: traZODone 50 MG TABLET PO SCH (21:26)
[2017-08-25 05:49] LABS: Eosinophils % 0.1 % (0.00-10.9); Hematocrit 36.7 VOL% (35.7-47.0); Hemoglobin 12.5 GM/DL (12.0-16.0); Immature Granulocytes % 0.4 %; Immature Granulocytes Absolute 0.04 #; Lymphocytes % 19.3 % (21.3-54.2); Mean Corpuscular HGB Conc 34.1 GM/DL (32-36); Mean Corpuscular Hemoglobin 30 PG (27-34); Mean Corpuscular Volume 89.1 FL (87-102); Mean Platelet Volume 11.4 FL (9.6-12.0); Monocytes # 0.7 10*3/uL (0.11-0.8); Monocytes % 6.3 % (1.7-12.7); Neutrophils # 7.8 10*3/uL (1.4-7.4); Neutrophils % 73.9 % (38.7-73.9); Platelet Count 218 T/CUMM (130-400); Red Blood Count 4.12 MC/CUMM (3.8-5.5); Red Cell Distribution Width 12.5 % (9.3-17.3); White Blood Count 10.6 T/CUMM (4-12)
[2017-08-25 06:19] LABS: Calcium 8.8 MG/DL (8.5-10.1); Magnesium 2.3 MG/DL (1.8-2.4)
[2017-08-25 06:20] LABS: Osmolality,Calculated 282.7 MOS/KG (273-304); Potassium 4.2 MMOL/L (3.5-5.1)
[2017-08-25] MEDS ORDERED: ASPIRIN EC 81 MG TABLET PO SCH (09:00)
[2017-08-25] MEDS: FUROSEMIDE 40 MG/4 ML VIAL IV SCH (10:06)
[2017-08-25] MEDS: POTASSIUM CHLORIDE 20 MEQ TABLET PO SCH (10:06)
[2017-08-25] MEDS: ALPRAZolam 0.5 MG TABLET PO SCH ×2 (10:07→20:40)
[2017-08-25] MEDS: LISINOPRIL 5 MG TABLET PO SCH (10:07)
[2017-08-25] MEDS: MORPHINE ER 30 MG TABLET PO SCH ×3 (10:08→20:39)
[2017-08-25] MEDS: CARVEDILOL 25 MG TABLET PO SCH (10:08)
[2017-08-25] MEDS: PANTOPRAZOLE 40 MG TABLET PO SCH (10:08)
[2017-08-25] MEDS: FUROSEMIDE 40 MG TABLET PO SCH (16:13)
[2017-08-25] MEDS: CARVEDILOL 12.5 MG TABLET PO SCH (20:27)
[2017-08-25] MEDS: ATORVASTATIN 40 MG TABLET PO SCH (20:27)
[2017-08-25] MEDS: traZODone 50 MG TABLET PO SCH (20:28)
[2017-08-25] MEDS: ALPRAZolam 0.25 MG TABLET PO PRN (20:28)
[2017-08-26 04:44] LABS: Basophils % 0.2 % (0.0-0.8); Eosinophils # 0.1 10*3/uL (0.0-0.87); Eosinophils % 1.4 % (0.00-10.9); Hemoglobin 11.7 GM/DL (12.0-16.0); Immature Granulocytes % 0.2 %; Immature Granulocytes Absolute 0.02 #; Lymphocytes # 2.6 10*3/uL (1.4-4.0); Lymphocytes % 30.9 % (21.3-54.2); Mean Corpuscular HGB Conc 33.4 GM/DL (32-36); Mean Corpuscular Hemoglobin 31 PG (27-34); Mean Corpuscular Volume 91.1 FL (87-102); Mean Platelet Volume 11.1 FL (9.6-12.0); Monocytes # 0.6 10*3/uL (0.11-0.8); Monocytes % 7.2 % (1.7-12.7); Neutrophils % 60.1 % (38.7-73.9); Platelet Count 211 T/CUMM (130-400); Red Blood Count 3.84 MC/CUMM (3.8-5.5); Red Cell Distribution Width 12.7 % (9.3-17.3); White Blood Count 8.3 T/CUMM (4-12)
[2017-08-26 05:37] LABS: Calcium 8.6 MG/DL (8.5-10.1); Magnesium 2.3 MG/DL (1.8-2.4)
[2017-08-26 05:38] LABS: Osmolality,Calculated 285.7 MOS/KG (273-304); Potassium 4.1 MMOL/L (3.5-5.1)
[2017-08-26] MEDS: ONDANSETRON 4 MG/2 ML VIAL IV PRN (08:21)
[2017-08-26] MEDS: MORPHINE ER 30 MG TABLET PO SCH ×3 (09:12→21:16)
[2017-08-26] MEDS: ALPRAZolam 0.5 MG TABLET PO SCH ×2 (09:14→21:16)
[2017-08-26] MEDS: FUROSEMIDE 40 MG TABLET PO SCH (09:23)
[2017-08-26] MEDS: POTASSIUM CHLORIDE 20 MEQ TABLET PO SCH (09:24)
[2017-08-26] MEDS: CARVEDILOL 12.5 MG TABLET PO SCH ×3 (09:24→21:17)
[2017-08-26] MEDS: PANTOPRAZOLE 40 MG TABLET PO SCH (09:25)
[2017-08-26] MEDS: LISINOPRIL 5 MG TABLET PO SCH (10:00)
[2017-08-26] MEDS: ALPRAZolam 0.25 MG TABLET PO PRN (17:00)
[2017-08-26] MEDS: ATORVASTATIN 40 MG TABLET PO SCH (21:16)
[2017-08-26] MEDS: traZODone 50 MG TABLET PO SCH (21:17)
[2017-08-27 03:18] LABS: Basophils % 0.1 % (0.0-0.8); Eosinophils # 0.2 10*3/uL (0.0-0.87); Eosinophils % 2.4 % (0.00-10.9); Hematocrit 34.8 VOL% (35.7-47.0); Hemoglobin 11.7 GM/DL (12.0-16.0); Immature Granulocytes % 0.3 %; Immature Granulocytes Absolute 0.02 #; Lymphocytes # 2.4 10*3/uL (1.4-4.0); Lymphocytes % 32.9 % (21.3-54.2); Mean Corpuscular HGB Conc 33.6 GM/DL (32-36); Mean Corpuscular Hemoglobin 31 PG (27-34); Mean Corpuscular Volume 90.9 FL (87-102); Mean Platelet Volume 11.4 FL (9.6-12.0); Monocytes # 0.5 10*3/uL (0.11-0.8); Monocytes % 7.2 % (1.7-12.7); Neutrophils # 4.1 10*3/uL (1.4-7.4); Neutrophils % 57.1 % (38.7-73.9); Platelet Count 209 T/CUMM (130-400); Red Blood Count 3.83 MC/CUMM (3.8-5.5); Red Cell Distribution Width 12.7 % (9.3-17.3); White Blood Count 7.2 T/CUMM (4-12)
[2017-08-27] MEDS: ALPRAZolam 0.25 MG TABLET PO PRN ×2 (04:20→14:31)
[2017-08-27 04:52] LABS: Calcium 8.6 MG/DL (8.5-10.1); Magnesium 2.3 MG/DL (1.8-2.4); Osmolality,Calculated 282.8 MOS/KG (273-304); Potassium 4.5 MMOL/L (3.5-5.1)
[2017-08-27] MEDS: ALPRAZolam 0.5 MG TABLET PO SCH ×2 (09:31→21:14)
[2017-08-27] MEDS: PANTOPRAZOLE 40 MG TABLET PO SCH (09:31)
[2017-08-27] MEDS: CARVEDILOL 12.5 MG TABLET PO SCH (09:31)
[2017-08-27] MEDS: POTASSIUM CHLORIDE 20 MEQ TABLET PO SCH (09:32)
[2017-08-27] MEDS: LISINOPRIL 5 MG TABLET PO SCH (09:32)
[2017-08-27] MEDS: MORPHINE ER 30 MG TABLET PO SCH ×3 (09:32→21:13)
[2017-08-27] MEDS: FUROSEMIDE 40 MG TABLET PO SCH (09:35)
[2017-08-27] MEDS: CARVEDILOL 6.25 MG TABLET PO SCH (21:14)
[2017-08-27] MEDS: traZODone 50 MG TABLET PO SCH (21:14)
[2017-08-27] MEDS: ATORVASTATIN 40 MG TABLET PO SCH (21:14)
[2017-08-28] MEDS: ALPRAZolam 0.25 MG TABLET PO PRN ×2 (02:34→17:35)
[2017-08-28 04:47] LABS: Basophils % 0.3 % (0.0-0.8); Eosinophils # 0.2 10*3/uL (0.0-0.87); Hemoglobin 12.1 GM/DL (12.0-16.0); Immature Granulocytes % 0.3 %; Immature Granulocytes Absolute 0.02 #; Lymphocytes # 2.2 10*3/uL (1.4-4.0); Mean Corpuscular HGB Conc 32.7 GM/DL (32-36); Mean Corpuscular Hemoglobin 30 PG (27-34); Mean Corpuscular Volume 92.3 FL (87-102); Mean Platelet Volume 11.3 FL (9.6-12.0); Monocytes # 0.5 10*3/uL (0.11-0.8); Monocytes % 6.9 % (1.7-12.7); Neutrophils # 3.8 10*3/uL (1.4-7.4); Neutrophils % 56.5 % (38.7-73.9); Platelet Count 227 T/CUMM (130-400); Red Blood Count 4.01 MC/CUMM (3.8-5.5); Red Cell Distribution Width 12.3 % (9.3-17.3); White Blood Count 6.7 T/CUMM (4-12)
[2017-08-28 05:25] LABS: Calcium 8.9 MG/DL (8.5-10.1); Magnesium 2.4 MG/DL (1.8-2.4); Osmolality,Calculated 280.8 MOS/KG (273-304); Potassium 4.5 MMOL/L (3.5-5.1)
[2017-08-28] MEDS: ONDANSETRON 4 MG/2 ML VIAL IV PRN (07:53)
[2017-08-28] MEDS: CARVEDILOL 6.25 MG TABLET PO SCH ×2 (08:35→20:46)
[2017-08-28] MEDS: POTASSIUM CHLORIDE 20 MEQ TABLET PO SCH (08:35)
[2017-08-28] MEDS: FUROSEMIDE 40 MG TABLET PO SCH (08:36)
[2017-08-28] MEDS: MORPHINE ER 30 MG TABLET PO SCH ×3 (08:36→20:47)
[2017-08-28] MEDS: LISINOPRIL 5 MG TABLET PO SCH (08:37)
[2017-08-28] MEDS: PANTOPRAZOLE 40 MG TABLET PO SCH (08:38)
[2017-08-28] MEDS: ALPRAZolam 0.5 MG TABLET PO SCH ×2 (08:38→20:47)
[2017-08-28] MEDS ORDERED: SERTRALINE 25 MG TABLET PO ONE (10:23)
[2017-08-28] MEDS: ATORVASTATIN 40 MG TABLET PO SCH (20:46)
[2017-08-28] MEDS: traZODone 50 MG TABLET PO SCH (20:47)
[2017-08-28] MEDS: SERTRALINE 25 MG TABLET PO SCH (20:47)
[2017-08-29] MEDS: ONDANSETRON 4 MG/2 ML VIAL IV PRN ×2 (01:40→11:31)
[2017-08-29] MEDS: MORPHINE ER 30 MG TABLET PO SCH ×3 (08:37→20:43)
[2017-08-29] MEDS: PANTOPRAZOLE 40 MG TABLET PO SCH (08:38)
[2017-08-29] MEDS: FUROSEMIDE 40 MG TABLET PO SCH (08:38)
[2017-08-29] MEDS: CARVEDILOL 6.25 MG TABLET PO SCH ×2 (08:38→20:34)
[2017-08-29] MEDS: LISINOPRIL 5 MG TABLET PO SCH (08:38)
[2017-08-29] MEDS: ALPRAZolam 0.5 MG TABLET PO SCH ×2 (08:38→20:35)
[2017-08-29] MEDS: POTASSIUM CHLORIDE 20 MEQ TABLET PO SCH (08:38)
[2017-08-29] MEDS ORDERED: DEXTROSE 50% 25 GM/50 ML VIAL IV PRN (08:54)
[2017-08-29] MEDS ORDERED: GLUCAGON 1 MG VIAL IM PRN (08:54)
[2017-08-29] MEDS: SODIUM CHLORIDE 0.9% 1,000 ML IV SCH (10:09)
[2017-08-29] MEDS: CHLORHEXIDINE 0.12% ORAL RINSE 60 ML BOTTLE SWISH/SPIT SCH ×2 (10:09→20:36)
[2017-08-29] MEDS: ALPRAZolam 0.25 MG TABLET PO PRN (11:39)
[2017-08-29] MEDS: ATORVASTATIN 40 MG TABLET PO SCH (20:35)
[2017-08-29] MEDS: traZODone 50 MG TABLET PO SCH (20:35)
[2017-08-29] MEDS: SERTRALINE 25 MG TABLET PO SCH (20:36)
[2017-08-30 04:30] LABS: ABG Base Excess 7.5 MMOL/L (-2.5-2.5); ABG HCO3 31.3 MMOL/L (20-26); ABG Oxygen Saturation 98.6 % (95-100); ABG PCO2 65.2 MM HG (35-48); ABG PH 7.345 (7.35-7.45); ABG TCO2 31.9 MMOL/L (23-27); Allen Test Positive
[2017-08-30 05:10] LABS: Basophils % 0.4 % (0.0-0.8); Eosinophils # 0.2 10*3/uL (0.0-0.87); Eosinophils % 2.8 % (0.00-10.9); Hemoglobin 11.9 GM/DL (12.0-16.0); Immature Granulocytes % 0.3 %; Immature Granulocytes Absolute 0.02 #; Lymphocytes # 2.2 10*3/uL (1.4-4.0); Lymphocytes % 32.5 % (21.3-54.2); Mean Corpuscular HGB Conc 33.1 GM/DL (32-36); Mean Corpuscular Hemoglobin 30 PG (27-34); Mean Corpuscular Volume 91.8 FL (87-102); Mean Platelet Volume 11.5 FL (9.6-12.0); Monocytes # 0.5 10*3/uL (0.11-0.8); Monocytes % 7.4 % (1.7-12.7); Neutrophils # 3.9 10*3/uL (1.4-7.4); Neutrophils % 56.6 % (38.7-73.9); Platelet Count 220 T/CUMM (130-400); Red Blood Count 3.92 MC/CUMM (3.8-5.5); Red Cell Distribution Width 12.1 % (9.3-17.3); White Blood Count 6.9 T/CUMM (4-12)
[2017-08-30 05:45] LABS: Albumin 3.5 G/DL (3.4-5.0); Bilirubin,Total 0.8 MG/DL (0.2-1.0); Calcium 8.6 MG/DL (8.5-10.1); Osmolality,Calculated 268.7 MOS/KG (273-304); Potassium 4.7 MMOL/L (3.5-5.1); Total Protein 6.9 G/DL (6.4-8.3)
[2017-08-30] MEDS: ONDANSETRON 4 MG/2 ML VIAL IV PRN ×2 (08:08→15:22)
[2017-08-30] MEDS ORDERED: CEFUROXIME INJ 1,500 MG in SYRINGE 1 EACH IV ONE (08:54)
[2017-08-30] MEDS ORDERED: PROPOFOL 200 MG/20 ML VIAL IV ONE ×2 (09:00)
[2017-08-30] MEDS ORDERED: PHENYLEPHRINE 1 MG/10 ML SYRINGE IV ONE ×2 (09:00)
[2017-08-30] MEDS ORDERED: LIDOCAINE 2% 5 ML VIAL ONE ×2 (09:00)
[2017-08-30] MEDS: SODIUM CHLORIDE 0.9% 1,000 ML IV SCH (09:31)
[2017-08-30] MEDS ORDERED: ZALEPLON 5 MG CAPSULE PO PRN (10:00)
[2017-08-30] MEDS ORDERED: BISACODYL 5 MG TABLET PO PRN (10:00)
[2017-08-30] MEDS ORDERED: guaiFENesin/DM ER 600-30 MG TABLET PO PRN (10:00)
[2017-08-30] MEDS ORDERED: ONDANSETRON 4 MG/2 ML VIAL IV ONE (11:19)
[2017-08-30] MEDS: PANTOPRAZOLE 40 MG TABLET PO SCH (12:43)
[2017-08-30] MEDS: LISINOPRIL 5 MG TABLET PO SCH (12:44)
[2017-08-30] MEDS: FUROSEMIDE 40 MG TABLET PO SCH (12:44)
[2017-08-30] MEDS: MORPHINE ER 30 MG TABLET PO SCH ×3 (12:44→21:23)
[2017-08-30] MEDS: CARVEDILOL 6.25 MG TABLET PO SCH ×2 (12:44→21:23)
[2017-08-30] MEDS: POTASSIUM CHLORIDE 20 MEQ TABLET PO SCH (12:45)
[2017-08-30] MEDS: ALPRAZolam 0.5 MG TABLET PO SCH ×2 (12:45→21:23)
[2017-08-30] MEDS: CHLORHEXIDINE 0.12% ORAL RINSE 60 ML BOTTLE SWISH/SPIT SCH ×2 (12:45→21:23)
[2017-08-30] MEDS: CHLORHEXIDINE 4% SOLN 118 ML BOTTLE TOP SCH ×3 (12:45→21:23)
[2017-08-30] MEDS: ALPRAZolam 0.25 MG TABLET PO PRN (17:19)
[2017-08-30] MEDS: SERTRALINE 25 MG TABLET PO SCH (21:22)
[2017-08-30] MEDS: traZODone 50 MG TABLET PO SCH (21:23)
[2017-08-30] MEDS: ATORVASTATIN 40 MG TABLET PO SCH (21:23)
[2017-08-31] MEDS: ONDANSETRON 4 MG/2 ML VIAL IV PRN ×2 (00:02→21:46)
[2017-08-31] MEDS ORDERED: VANCOMYCIN 1,000 MG VIAL ONE (05:23)
[2017-08-31] MEDS ORDERED: CEFUROXIME INJ 1,500 MG in SYRINGE 1 EACH IV ONE (07:00)
[2017-08-31] MEDS ORDERED: NITROPRUSSIDE 50 MG/2 ML VIAL ONE (07:09)
[2017-08-31] MEDS ORDERED: POTASSIUM CHLORIDE RIDER 100 ML IV ONE (07:09)
[2017-08-31] MEDS ORDERED: PHENYLEPHRINE DRIP 40 MG/250 ML PREMIX IV ONE (07:09)
[2017-08-31] MEDS: SODIUM CHLORIDE 0.9% 1,000 ML IV SCH (07:20)
[2017-08-31 08:52] LABS: ABG PCO2 42.4 MM HG (35-48); ABG TCO2 26.7 MMOL/L (23-27); Glucose Heart Surgery 117 MG/DL (74-106); Hematocrit Heart Surgery 31.4 PERCENT (37-47); Hemoglobin Heart Surgery 10.2 G/DL (12.0-16.0); Ionized Calcium Arterial 1.05 MMOL/L (1.21-1.46); PCO2 Patient Temp Arterial 42.4 MMHG; Patient Temperature 37 CELCIUS; Potassium Heart/CVR 3.9 MMOL/L (3.5-5.1); Sodium Heart/CVR 134 MMOL/L (135-145)
[2017-08-31 09:09] LABS: Apearance,Urine CLEAR (Clear); Bacteria,Urine Occasional /HPF (Few); Bilirubin,Urine Negative (Negative); Blood, Urine Negative (Negative); Glucose,Urine (UA) Negative (Negative); Ketones,Urine Negative (Negative); Nitrite,Urine Negative (Negative); Protein,Urine Negative; RBC,Urine <1 /HPF (0-4); Urine Color Yellow (Yellow); Urine Specific Gravity 1.009 (1.001-1.035); Urine Urobilinogen < 2.0 EU/DL (0.2-1.0); WBC,Urine 1 /HPF (0-6)
[2017-08-31] MEDS ORDERED: SEVOFLURANE 1 UNIT/15 MINUTE INH ONE ×3 (09:15→12:00)
[2017-08-31 09:54] LABS: Hemoglobin Heart Surgery 11.2 G/DL (12.0-16.0); PCO2 Patient Temp Venous 29.2 MM HG; PH Patient Temp Venous 7.579; PO2 Patient Temp Venous 45.1 MM HG; Potassium Heart/CVR 5.5 MMOL/L (3.5-5.1); VBG Base Excess 4.9 MEQ/L (0-4); VBG HCO3 27.2 MEQ/L (24-28); VBG Oxygen Saturation 89.9 %; VBG PCO2 31.9 MMHG (41-51); VBG PH 7.548; VBG PO2 51.9 MMHG (17-40)
[2017-08-31] MEDS ORDERED: CALCIUM CHLORIDE 1,000 MG/10 ML VIAL IV ONE ×2 (10:08→11:53)
[2017-08-31 10:11] LABS: Hematocrit Heart Surgery 31.3 PERCENT (37-47); Hemoglobin Heart Surgery 10.1 G/DL (12.0-16.0); PCO2 Patient Temp Venous 26.1 MM HG; PO2 Patient Temp Venous 34.2 MM HG; Potassium Heart/CVR 4.9 MMOL/L (3.5-5.1); VBG Base Excess 5.7 MEQ/L (0-4); VBG HCO3 29.4 MEQ/L (24-28); VBG Oxygen Saturation 86.7 %; VBG PCO2 30.1 MMHG (41-51); VBG PH 7.57; VBG PO2 42.2 MMHG (17-40)
[2017-08-31 10:12] LABS: PH Patient Temp Venous 7.617
[2017-08-31 10:44] LABS: Hemoglobin Heart Surgery 9.4 G/DL (12.0-16.0); PCO2 Patient Temp Venous 36.3 MM HG; PH Patient Temp Venous 7.499; PO2 Patient Temp Venous 43.8 MM HG; Potassium Heart/CVR 4.5 MMOL/L (3.5-5.1); VBG Base Excess 4.9 MEQ/L (0-4); VBG HCO3 28.6 MEQ/L (24-28); VBG Oxygen Saturation 84.7 %; VBG PCO2 36.3 MMHG (41-51); VBG PH 7.499; VBG PO2 43.8 MMHG (17-40)
[2017-08-31 11:07] LABS: ABG Base Excess 3.1 MMOL/L (-2.5-2.5); ABG HCO3 27.2 MMOL/L (20-26); ABG PCO2 31.3 MM HG (35-48); ABG PH 7.521 (7.35-7.45); ABG TCO2 23.3 MMOL/L (23-27); Glucose Heart Surgery 198 MG/DL (74-106); Hematocrit Heart Surgery 29.4 PERCENT (37-47); Hemoglobin Heart Surgery 9.5 G/DL (12.0-16.0); Ionized Calcium Arterial 1.08 MMOL/L (1.21-1.46); PCO2 Patient Temp Arterial 31.3 MMHG; PH Patient Temp Arterial 7.521; Patient Temperature 37 CELCIUS; Sodium Heart/CVR 128 MMOL/L (135-145)
[2017-08-31] MEDS ORDERED: HEPARIN 10,000 UNIT/10 ML VIAL ONE (11:07)
[2017-08-31] MEDS ORDERED: methylPREDNISolone SOD SUC 1,000 MG/8 ML VIAL ONE (11:07)
[2017-08-31] MEDS ORDERED: ALBUMIN 25% 25 GM/100 ML VIAL IV ONE (11:07)
[2017-08-31] MEDS ORDERED: MANNITOL 12.5 GM/50 ML VIAL IV ONE (11:07)
[2017-08-31] MEDS ORDERED: SODIUM BICARBONATE 50 MEQ/50 ML SYRINGE IV ONE (11:07)
[2017-08-31] MEDS ORDERED: MAGNESIUM SULFATE 1 GM/2 ML VIAL ONE (11:07)
[2017-08-31] MEDS ORDERED: DEXTROSE 5% KCL 20 MEQ 20 MEQ/1,000 ML BAG IV ONE (11:07)
[2017-08-31] MEDS ORDERED: PROTAMINE SULFATE 250 MG/25 ML VIAL IV ONE (11:07)
[2017-08-31] MEDS ORDERED: FUROSEMIDE 20 MG/2 ML VIAL ONE (11:08)
[2017-08-31] MEDS ORDERED: MIDAZOLAM 10 MG/2 ML VIAL ONE (11:53)
[2017-08-31] MEDS ORDERED: SUFentanil 250 MCG/5 ML AMP ONE (11:53)
[2017-08-31] MEDS ORDERED: SODIUM CHLORIDE 0.9% 1,000 ML IV ONE (11:54)
[2017-08-31] MEDS ORDERED: TRANEXAMIC ACID 1,000 MG/10 ML VIAL IV ONE (11:54)
[2017-08-31] MEDS ORDERED: ePHEDrine 50 MG/ML AMP ONE (11:54)
[2017-08-31] MEDS ORDERED: SODIUM CHLORIDE 0.9% 100 ML IV ONE (11:54)
[2017-08-31] MEDS ORDERED: LACTATED RINGERS 1,000 ML IV ONE (11:54)
[2017-08-31] MEDS ORDERED: VECURONIUM 10 MG VIAL IV ONE (11:54)
[2017-08-31] MEDS ORDERED: MIDAZOLAM 10 MG/2 ML VIAL IV PRN (12:00)
[2017-08-31] MEDS ORDERED: LACTATED RINGERS 250 ML IV PRN (12:00)
[2017-08-31] MEDS ORDERED: POTASSIUM CHLORIDE RIDER 10 MEQ in PREMIX 1 EACH IV PRN (12:00)
[2017-08-31] MEDS ORDERED: INSULIN REGULAR 100 UNIT/ML IV ONE (12:00)
[2017-08-31] MEDS ORDERED: ACETAMINOPHEN 650 MG SUPP RECTAL PRN (12:00)
[2017-08-31] MEDS ORDERED: MORPHINE 2 MG/1 ML SYRINGE IV PRN (12:00)
[2017-08-31] MEDS ORDERED: PHENYLEPHRINE DRIP 20 MG/250 ML PREMIX IV ONE (12:00)
[2017-08-31] MEDS ORDERED: MAGNESIUM SULF RIDER 2 GM in PREMIX 1 EACH IV PRN (12:00)
[2017-08-31] MEDS ORDERED: INSULIN REGULAR DRIP 100 ML IV SCH (12:00)
[2017-08-31] MEDS ORDERED: PHENYLEPHRINE DRIP 40 MG/250 ML PREMIX IV PRN (12:00)
[2017-08-31] MEDS ORDERED: NITROGLYCERIN DRIP 50 MG/250 ML BOTTLE IV ONE ×2 (12:00→13:12)
[2017-08-31] MEDS ORDERED: MAGNESIUM SULF RIDER 4 GM in PREMIX 1 EACH IV PRN (12:00)
[2017-08-31] MEDS ORDERED: DEXTROSE 50% 25 GM/50 ML VIAL IV PRN ×2 (12:00)
[2017-08-31] MEDS ORDERED: CALCIUM CHLORIDE 1,000 MG/10 ML SYRINGE IV PRN (12:00)
[2017-08-31] MEDS ORDERED: VECURONIUM 10 MG VIAL IV PRN ×2 (12:00)
[2017-08-31 12:15] LABS: ABG Oxygen Saturation 99.3 % (95-100); ABG PCO2 28.7 MM HG (35-48); ABG PH 7.557 (7.35-7.45); ABG TCO2 22.6 MMOL/L (23-27); Glucose Heart Surgery 153 MG/DL (74-106); Hematocrit Heart Surgery 35.9 PERCENT (37-47); Hemoglobin Heart Surgery 11.6 G/DL (12.0-16.0); Potassium Heart/CVR 3.6 MMOL/L (3.5-5.1)
[2017-08-31 12:16] LABS: Basophils % 0.2 % (0.0-0.8); Eosinophils % 0.5 % (0.00-10.9); Hematocrit 32.6 VOL% (35.7-47.0); Hemoglobin 11.3 GM/DL (12.0-16.0); Immature Granulocytes % 0.8 %; Immature Granulocytes Absolute 0.05 #; Lymphocytes # 0.9 10*3/uL (1.4-4.0); Lymphocytes % 13.1 % (21.3-54.2); Mean Corpuscular HGB Conc 34.7 GM/DL (32-36); Mean Corpuscular Hemoglobin 31 PG (27-34); Mean Corpuscular Volume 88.3 FL (87-102); Mean Platelet Volume 11.1 FL (9.6-12.0); Monocytes # 0.3 10*3/uL (0.11-0.8); Neutrophils # 5.3 10*3/uL (1.4-7.4); Neutrophils % 80.4 % (38.7-73.9); Platelet Count 131 T/CUMM (130-400); Red Blood Count 3.69 MC/CUMM (3.8-5.5); Red Cell Distribution Width 12.2 % (9.3-17.3); White Blood Count 6.6 T/CUMM (4-12)
[2017-08-31 12:25] LABS: INR 1.5; PT Patient Result 15.2 SECS
[2017-08-31] MEDS: MORPHINE ER 30 MG TABLET PO SCH ×2 (12:25→23:06)
[2017-08-31] MEDS: SODIUM CHLORIDE 0.45% 1,000 ML IV SCH ×2 (12:37→12:41)
[2017-08-31] MEDS ORDERED: HEPARIN/NACL 0.9% 2 UNITS/ML 500 ML IV ONE (12:42)
[2017-08-31] MEDS: POTASSIUM CHLORIDE RIDER 20 MEQ in PREMIX 1 EACH IV PRN ×3 (12:43→20:58)
[2017-08-31 13:03] LABS: CKMB % 9.6 %
[2017-08-31] MEDS: MIDAZOLAM 2 MG/2 ML VIAL IV PRN ×2 (13:05→14:36)
[2017-08-31 13:07] LABS: Troponin I Only 4.36 NG/ML (0.00-0.045)
[2017-08-31 13:07] LABS: Partial Thromboplastin Time 42.4 SECS (0-40)
[2017-08-31] MEDS: NITROGLYCERIN DRIP 50 MG/250 ML BOTTLE IV SCH (13:20)
[2017-08-31 13:21] LABS: Albumin 3.3 G/DL (3.4-5.0); Bilirubin,Total 1.3 MG/DL (0.2-1.0); Calcium 8.3 MG/DL (8.5-10.1); Magnesium 2.3 MG/DL (1.8-2.4); Osmolality,Calculated 272.2 MOS/KG (273-304); Potassium 3.7 MMOL/L (3.5-5.1); Total Protein 5.1 G/DL (6.4-8.3)
[2017-08-31 13:57] LABS: ABG PCO2 26.6 MM HG (35-48); ABG PH 7.583 (7.35-7.45); ABG TCO2 22.4 MMOL/L (23-27); Glucose Heart Surgery 194 MG/DL (74-106); Hematocrit Heart Surgery 33.7 PERCENT (37-47); Hemoglobin Heart Surgery 10.9 G/DL (12.0-16.0); Potassium Heart/CVR 4.4 MMOL/L (3.5-5.1)
[2017-08-31] MEDS: LACTATED RINGERS 1,000 ML IV PRN ×3 (14:10→16:17)
[2017-08-31] MEDS: MORPHINE 10 MG/1 ML VIAL IV PRN ×2 (14:34→15:56)
[2017-08-31] MEDS: ALBUMIN 5% 12.5 GM in PREMIX 1 EACH IV PRN ×2 (14:45→17:38)
[2017-08-31 15:03] LABS: ABG HCO3 26.8 MMOL/L (20-26); ABG Oxygen Saturation 98.1 % (95-100); ABG PCO2 33.6 MM HG (35-48); ABG PO2 129.2 MM HG (80-95); ABG TCO2 27.9 MMOL/L (23-27); Glucose Heart Surgery 158 MG/DL (74-106); Hemoglobin Heart Surgery 10.3 G/DL (12.0-16.0); Potassium Heart/CVR 3.7 MMOL/L (3.5-5.1)
[2017-08-31] MEDS: NITROPRUSSIDE 100 MG in DEXTROSE 5% 250 ML IV PRN (15:23)
[2017-08-31] MEDS ORDERED: HYDROmorphone 2 MG/1 ML VIAL IV PRN (16:09)
[2017-08-31] MEDS: INSULIN REGULAR 100 UNIT/ML IV PRN ×2 (16:16→18:36)
[2017-08-31] MEDS ORDERED: HYDROmorphone 2 MG/1 ML VIAL ONE (16:58)
[2017-08-31] MEDS ORDERED: HYDROmorphone 2 MG/1 ML VIAL IV ONE (17:00)
[2017-08-31 18:25] LABS: ABG Base Excess 4.4 MMOL/L (-2.5-2.5); ABG HCO3 28.4 MMOL/L (20-26); ABG Oxygen Saturation 97.2 % (95-100); ABG PCO2 41.1 MM HG (35-48); ABG PH 7.452 (7.35-7.45); ABG PO2 81.8 MM HG (80-95); ABG TCO2 26.2 MMOL/L (23-27); Glucose Heart Surgery 143 MG/DL (74-106); Hematocrit Heart Surgery 29.2 PERCENT (37-47); Hemoglobin Heart Surgery 9.4 G/DL (12.0-16.0); Potassium Heart/CVR 4.3 MMOL/L (3.5-5.1)
[2017-08-31] MEDS: CEFUROXIME INJ 1,500 MG in SYRINGE 1 EACH IV SCH (19:49)
[2017-08-31] MEDS: HYDROmorphone 2 MG/1 ML VIAL IV PRN ×2 (19:56→22:25)
[2017-08-31 20:23] LABS: ABG Base Excess 4.8 MMOL/L (-2.5-2.5); ABG HCO3 28.8 MMOL/L (20-26); ABG Oxygen Saturation 98.6 % (95-100); ABG PCO2 36.9 MM HG (35-48); ABG PH 7.493 (7.35-7.45); ABG TCO2 25.8 MMOL/L (23-27); Glucose Heart Surgery 114 MG/DL (74-106); Hematocrit Heart Surgery 28.8 PERCENT (37-47); Hemoglobin Heart Surgery 9.3 G/DL (12.0-16.0); Potassium Heart/CVR 4.2 MMOL/L (3.5-5.1)
[2017-08-31 20:55] LABS: CKMB % 6.4 %
[2017-08-31 20:58] LABS: Troponin I Only 3.74 NG/ML (0.00-0.045)
[2017-08-31 22:05] LABS: ABG Base Excess 4.8 MMOL/L (-2.5-2.5); ABG HCO3 30.4 MMOL/L (20-26); ABG Oxygen Saturation 97.2 % (95-100); ABG PCO2 50.6 MM HG (35-48); ABG PH 7.397 (7.35-7.45); ABG PO2 107.8 MM HG (80-95); Glucose Heart Surgery 135 MG/DL (74-106); Potassium Heart/CVR 4.9 MMOL/L (3.5-5.1)
[2017-08-31] MEDS: CHLORHEXIDINE 0.12% ORAL RINSE 60 ML BOTTLE SWISH/SPIT SCH (22:14)
[2017-08-31] MEDS ORDERED: traZODone 50 MG TABLET PO PRN (22:41)
[2017-08-31 23:00] LABS: ABG Base Excess 3.7 MMOL/L (-2.5-2.5); ABG HCO3 27.7 MMOL/L (20-26); ABG Oxygen Saturation 98.9 % (95-100); ABG PCO2 52.2 MM HG (35-48); ABG PH 7.366 (7.35-7.45); ABG TCO2 27.5 MMOL/L (23-27); Glucose Heart Surgery 163 MG/DL (74-106); Hematocrit Heart Surgery 29.2 PERCENT (37-47); Hemoglobin Heart Surgery 9.4 G/DL (12.0-16.0); Potassium Heart/CVR 4.6 MMOL/L (3.5-5.1)
[2017-08-31] MEDS: ALPRAZolam 0.5 MG TABLET PO PRN (23:07)
[2017-09-01] MEDS: HYDROmorphone 2 MG/1 ML VIAL IV PRN ×5 (01:45→22:53)
[2017-09-01] MEDS ORDERED: NITROPRUSSIDE 50 MG/2 ML VIAL ONE (02:13)
[2017-09-01] MEDS: NITROPRUSSIDE 100 MG in DEXTROSE 5% 250 ML IV PRN ×2 (03:14→16:47)
[2017-09-01 04:19] LABS: ABG Base Excess 4.9 MMOL/L (-2.5-2.5); ABG HCO3 28.8 MMOL/L (20-26); ABG Oxygen Saturation 96.9 % (95-100); ABG PH 7.377 (7.35-7.45); ABG TCO2 28.6 MMOL/L (23-27); Glucose Heart Surgery 121 MG/DL (74-106); Hematocrit Heart Surgery 28.9 PERCENT (37-47); Hemoglobin Heart Surgery 9.3 G/DL (12.0-16.0); Potassium Heart/CVR 4.3 MMOL/L (3.5-5.1)
[2017-09-01 04:20] LABS: Basophils % 0.1 % (0.0-0.8); Hemoglobin 9.1 GM/DL (12.0-16.0); Immature Granulocytes % 0.8 %; Lymphocytes # 0.7 10*3/uL (1.4-4.0); Lymphocytes % 5.7 % (21.3-54.2); Mean Corpuscular HGB Conc 33.7 GM/DL (32-36); Mean Corpuscular Hemoglobin 31 PG (27-34); Mean Corpuscular Volume 90.6 FL (87-102); Mean Platelet Volume 11.4 FL (9.6-12.0); Monocytes # 0.4 10*3/uL (0.11-0.8); Neutrophils # 11.3 10*3/uL (1.4-7.4); Neutrophils % 90.4 % (38.7-73.9); Platelet Count 109 T/CUMM (130-400); Red Blood Count 2.98 MC/CUMM (3.8-5.5); Red Cell Distribution Width 12.7 % (9.3-17.3); White Blood Count 12.5 T/CUMM (4-12)
[2017-09-01 05:01] LABS: Albumin 3.6 G/DL (3.4-5.0); Bilirubin,Direct 0.35 MG/DL (0.0-0.20); Bilirubin,Total 1.2 MG/DL (0.2-1.0); CKMB % 5.2 %; Calcium 8.1 MG/DL (8.5-10.1); Magnesium 1.7 MG/DL (1.8-2.4); Potassium 4.3 MMOL/L (3.5-5.1); Total Protein 5.6 G/DL (6.4-8.3)
[2017-09-01 05:02] LABS: Troponin I Only 1.89 NG/ML (0.00-0.045)
[2017-09-01] MEDS: POTASSIUM CHLORIDE RIDER 20 MEQ in PREMIX 1 EACH IV PRN (05:23)
[2017-09-01] MEDS ORDERED: PROMETHAZINE 25 MG TABLET PO PRN (05:30)
[2017-09-01] MEDS: ONDANSETRON 4 MG/2 ML VIAL IV PRN (06:35)
[2017-09-01 07:41] LABS: ABG Base Excess 5.1 MMOL/L (-2.5-2.5); ABG HCO3 28.9 MMOL/L (20-26); ABG Oxygen Saturation 94.5 % (95-100); ABG PCO2 49.9 MM HG (35-48); Glucose Heart Surgery 139 MG/DL (74-106); Hemoglobin Heart Surgery 10.4 G/DL (12.0-16.0); Potassium Heart/CVR 4.6 MMOL/L (3.5-5.1)
[2017-09-01] MEDS ORDERED: METOCLOPRAMIDE 10 MG/2 ML VIAL IV ONE (07:43)
[2017-09-01] MEDS: INSULIN REGULAR 100 UNIT/ML SUBCUT SCH ×4 (08:01→19:45)
[2017-09-01] MEDS: CEFUROXIME INJ 1,500 MG in SYRINGE 1 EACH IV SCH ×2 (08:06→20:33)
[2017-09-01] MEDS ORDERED: guaiFENesin/DM ER 600-30 MG TABLET PO PRN (10:52)
[2017-09-01] MEDS ORDERED: ZALEPLON 5 MG CAPSULE PO PRN (10:52)
[2017-09-01 11:27] LABS: Basophils % 0.1 % (0.0-0.8); Hematocrit 30.4 VOL% (35.7-47.0); Hemoglobin 10.4 GM/DL (12.0-16.0); Immature Granulocytes % 0.6 %; Lymphocytes # 0.8 10*3/uL (1.4-4.0); Lymphocytes % 4.8 % (21.3-54.2); Mean Corpuscular HGB Conc 34.2 GM/DL (32-36); Mean Corpuscular Hemoglobin 30 PG (27-34); Mean Corpuscular Volume 88.9 FL (87-102); Mean Platelet Volume 11.1 FL (9.6-12.0); Monocytes # 0.8 10*3/uL (0.11-0.8); Monocytes % 4.9 % (1.7-12.7); Neutrophils # 14.5 10*3/uL (1.4-7.4); Neutrophils % 89.6 % (38.7-73.9); Platelet Count 110 T/CUMM (130-400); Red Blood Count 3.42 MC/CUMM (3.8-5.5); Red Cell Distribution Width 13.3 % (9.3-17.3); White Blood Count 16.2 T/CUMM (4-12)
[2017-09-01 11:46] LABS: Band Neutrophils 1 % (0-10); Hypochromasia 1+; Lymphocytes 4 % (20-55); Segmented Neutrophils 91 % (50-85); Total Cells Counted 100
[2017-09-01 11:47] LABS: Microcytosis 1+; Platelet Estimate Decreased
[2017-09-01 12:07] LABS: CKMB % 4.1 %
[2017-09-01 12:08] LABS: Troponin I Only 1.33 NG/ML (0.00-0.045)
[2017-09-01] MEDS: MORPHINE ER 30 MG TABLET PO SCH ×3 (12:11→20:29)
[2017-09-01] MEDS: ALPRAZolam 0.5 MG TABLET PO PRN (12:20)
[2017-09-01] MEDS: CHLORHEXIDINE 0.12% ORAL RINSE 60 ML BOTTLE SWISH/SPIT SCH ×2 (13:52→21:02)
[2017-09-01] MEDS: NITROGLYCERIN DRIP 50 MG/250 ML BOTTLE IV SCH (14:21)
[2017-09-01] MEDS: SODIUM CHLORIDE 0.45% 1,000 ML IV SCH ×2 (14:33)
[2017-09-01] MEDS: methylPREDNISolone SOD SUC 125 MG/2 ML VIAL IV SCH ×2 (15:33→20:30)
[2017-09-01] MEDS: PANTOPRAZOLE 40 MG VIAL IV SCH (15:49)
[2017-09-01] MEDS: CARVEDILOL 6.25 MG TABLET PO SCH (20:29)
[2017-09-01] MEDS: ATORVASTATIN 40 MG TABLET PO SCH (20:29)
[2017-09-01] MEDS: SERTRALINE 25 MG TABLET PO SCH (20:29)
[2017-09-02] MEDS: INSULIN REGULAR 100 UNIT/ML SUBCUT SCH ×6 (00:03→20:12)
[2017-09-02] MEDS: HYDROmorphone 2 MG/1 ML VIAL IV PRN ×2 (03:23→10:08)
[2017-09-02] MEDS: methylPREDNISolone SOD SUC 125 MG/2 ML VIAL IV SCH ×2 (03:38→08:16)
[2017-09-02] MEDS: ALPRAZolam 0.5 MG TABLET PO PRN ×3 (03:40→20:10)
[2017-09-02 04:53] LABS: Basophils % 0.1 % (0.0-0.8); Hematocrit 28.4 VOL% (35.7-47.0); Immature Granulocytes % 0.8 %; Immature Granulocytes Absolute 0.09 #; Lymphocytes # 0.9 10*3/uL (1.4-4.0); Mean Corpuscular HGB Conc 35.2 GM/DL (32-36); Mean Corpuscular Hemoglobin 31 PG (27-34); Mean Corpuscular Volume 86.6 FL (87-102); Monocytes # 0.4 10*3/uL (0.11-0.8); Monocytes % 3.3 % (1.7-12.7); Neutrophils # 9.7 10*3/uL (1.4-7.4); Neutrophils % 87.8 % (38.7-73.9); Platelet Count 89 T/CUMM (130-400); Red Blood Count 3.28 MC/CUMM (3.8-5.5); Red Cell Distribution Width 13.4 % (9.3-17.3)
[2017-09-02 05:08] LABS: Calcium 8.4 MG/DL (8.5-10.1); Osmolality,Calculated 273.1 MOS/KG (273-304); Potassium 4.3 MMOL/L (3.5-5.1)
[2017-09-02 05:11] LABS: Albumin 3.2 G/DL (3.4-5.0); Albumin 3.5 G/DL (3.4-5.0); Bilirubin,Direct 0.22 MG/DL (0.0-0.20); Bilirubin,Direct 0.28 MG/DL (0.0-0.20); Bilirubin,Indirect 0.5 MG/DL (0.0-1.0); Bilirubin,Total 0.8 MG/DL (0.2-1.0); Calcium 8.2 MG/DL (8.5-10.1); Calcium 8.3 MG/DL (8.5-10.1); Magnesium 2.4 MG/DL (1.8-2.4); Osmolality,Calculated 269.4 MOS/KG (273-304); Osmolality,Calculated 274.1 MOS/KG (273-304); Potassium 4.2 MMOL/L (3.5-5.1); Potassium 4.3 MMOL/L (3.5-5.1); Total Protein 5.3 G/DL (6.4-8.3); Total Protein 5.6 G/DL (6.4-8.3)
[2017-09-02 05:38] LABS: Giant Platelets Few; Hypochromasia 1+; Lymphocytes 8 % (20-55); Ovalocytes Slight; Platelet Estimate Decreased; Segmented Neutrophils 89 % (50-85); Total Cells Counted 100
[2017-09-02 05:39] LABS: Microcytosis Slight
[2017-09-02] MEDS: POTASSIUM CHLORIDE RIDER 20 MEQ in PREMIX 1 EACH IV PRN (06:05)
[2017-09-02] MEDS: MORPHINE ER 30 MG TABLET PO SCH ×3 (08:14→20:10)
[2017-09-02] MEDS: CARVEDILOL 6.25 MG TABLET PO SCH ×2 (08:15→20:09)
[2017-09-02] MEDS: PANTOPRAZOLE 40 MG VIAL IV SCH (08:20)
[2017-09-02] MEDS: CHLORHEXIDINE 0.12% ORAL RINSE 60 ML BOTTLE SWISH/SPIT SCH ×2 (08:29→20:14)
[2017-09-02] MEDS ORDERED: FUROSEMIDE 40 MG/4 ML VIAL IV ONE (10:29)
[2017-09-02] MEDS: ALBUTEROL/IPRATROPIUM 3 ML NEB RESP TX SCH ×3 (10:49→19:40)
[2017-09-02] MEDS: SODIUM CHLORIDE 0.45% 1,000 ML IV SCH ×2 (14:26→14:27)
[2017-09-02] MEDS: NITROGLYCERIN DRIP 50 MG/250 ML BOTTLE IV SCH (14:27)
[2017-09-02] MEDS: SERTRALINE 25 MG TABLET PO SCH (20:10)
[2017-09-02] MEDS: ATORVASTATIN 40 MG TABLET PO SCH (20:10)
[2017-09-03] MEDS: ALBUTEROL/IPRATROPIUM 3 ML NEB RESP TX SCH ×4 (01:10→21:38)
[2017-09-03] MEDS: HYDROmorphone 2 MG/1 ML VIAL IV PRN (02:15)
[2017-09-03] MEDS: INSULIN REGULAR 100 UNIT/ML SUBCUT SCH ×3 (02:19→07:29)
[2017-09-03] MEDS: ALPRAZolam 0.5 MG TABLET PO PRN (03:52)
[2017-09-03 04:10] LABS: Basophils % 0.1 % (0.0-0.8); Hematocrit 30.5 VOL% (35.7-47.0); Hemoglobin 10.3 GM/DL (12.0-16.0); Immature Granulocytes % 0.6 %; Immature Granulocytes Absolute 0.07 #; Lymphocytes # 0.9 10*3/uL (1.4-4.0); Mean Corpuscular HGB Conc 33.8 GM/DL (32-36); Mean Corpuscular Hemoglobin 30 PG (27-34); Mean Corpuscular Volume 88.7 FL (87-102); Mean Platelet Volume 11.7 FL (9.6-12.0); Monocytes # 0.7 10*3/uL (0.11-0.8); Monocytes % 5.4 % (1.7-12.7); Neutrophils % 86.9 % (38.7-73.9); Platelet Count 107 T/CUMM (130-400); Red Blood Count 3.44 MC/CUMM (3.8-5.5); Red Cell Distribution Width 12.8 % (9.3-17.3); White Blood Count 12.7 T/CUMM (4-12)
[2017-09-03 04:55] LABS: Albumin 3.2 G/DL (3.4-5.0); Bilirubin,Direct 0.26 MG/DL (0.0-0.20); Bilirubin,Total 0.8 MG/DL (0.2-1.0); Calcium 8.4 MG/DL (8.5-10.1); Magnesium 2.2 MG/DL (1.8-2.4); Osmolality,Calculated 273.2 MOS/KG (273-304); Potassium 3.8 MMOL/L (3.5-5.1); Total Protein 5.8 G/DL (6.4-8.3)
[2017-09-03] MEDS: POTASSIUM CHLORIDE RIDER 20 MEQ in PREMIX 1 EACH IV PRN (05:36)
[2017-09-03] MEDS ORDERED: guaiFENesin/DM ER 600-30 MG TABLET PO PRN (08:26)
[2017-09-03] MEDS ORDERED: ZALEPLON 5 MG CAPSULE PO PRN ×2 (08:26→10:11)
[2017-09-03] MEDS ORDERED: CARVEDILOL 6.25 MG TABLET PO SCH (09:00)
[2017-09-03] MEDS: MORPHINE ER 30 MG TABLET PO SCH ×3 (09:33→20:42)
[2017-09-03] MEDS: CHLORHEXIDINE 0.12% ORAL RINSE 60 ML BOTTLE SWISH/SPIT SCH ×3 (09:34→20:48)
[2017-09-03] MEDS: PANTOPRAZOLE 40 MG VIAL IV SCH (09:34)
[2017-09-03] MEDS: CARVEDILOL 6.25 MG TABLET PO SCH (09:34)
[2017-09-03] MEDS ORDERED: MAGNESIUM SULF RIDER 4 GM in PREMIX 1 EACH IV PRN (10:11)
[2017-09-03] MEDS ORDERED: ACETAMINOPHEN 325 MG TABLET PO PRN (10:11)
[2017-09-03] MEDS ORDERED: NON-FORMULARY MEDICATION (Morphine Sulfate [Morphine Sulfate Er] 60 MG) PO SCH (10:11)
[2017-09-03] MEDS ORDERED: ALUMINUM/MAGNES/SIMETH MAX STR 30 ML UDCUP PO PRN (10:11)
[2017-09-03] MEDS ORDERED: MAGNESIUM SULF RIDER 2 GM in PREMIX 1 EACH IV PRN (10:11)
[2017-09-03] MEDS ORDERED: GLUCAGON 1 MG VIAL IM PRN ×2 (10:11)
[2017-09-03] MEDS ORDERED: MAGNESIUM HYDROXIDE SUSP 30 ML UDCUP PO PRN (10:11)
[2017-09-03] MEDS ORDERED: DEXTROSE 50% 25 GM/50 ML VIAL IV PRN ×2 (10:11)
[2017-09-03] MEDS ORDERED: SODIUM CHLOR 0.45% KCL 20 MEQ 20 MEQ/1,000 ML BAG IV SCH (10:11)
[2017-09-03] MEDS: DOCUSATE SODIUM 100 MG CAPSULE PO SCH (11:08)
[2017-09-03] MEDS: FERROUS SULFATE 325 MG TABLET PO SCH (11:42)
[2017-09-03] MEDS: ALPRAZolam 0.5 MG TABLET PO SCH ×2 (11:42→21:45)
[2017-09-03] MEDS: PANTOPRAZOLE 40 MG TABLET PO SCH (11:42)
[2017-09-03] MEDS: ATORVASTATIN 40 MG TABLET PO SCH (20:40)
[2017-09-03] MEDS: POTASSIUM CHLORIDE 20 MEQ TABLET PO PRN ×3 (20:41→22:42)
[2017-09-03] MEDS: traZODone 50 MG TABLET PO SCH (20:41)
[2017-09-03] MEDS: SERTRALINE 25 MG TABLET PO SCH (20:42)
[2017-09-03] MEDS ORDERED: SERTRALINE 25 MG TABLET PO SCH (21:00)
[2017-09-04] MEDS: ALBUTEROL/IPRATROPIUM 3 ML NEB RESP TX SCH ×4 (01:19→19:42)
[2017-09-04 05:06] LABS: Basophils % 0.1 % (0.0-0.8); Eosinophils # 0.1 10*3/uL (0.0-0.87); Eosinophils % 0.9 % (0.00-10.9); Hematocrit 26.2 VOL% (35.7-47.0); Hemoglobin 8.9 GM/DL (12.0-16.0); Immature Granulocytes % 0.9 %; Immature Granulocytes Absolute 0.07 #; Lymphocytes # 1.7 10*3/uL (1.4-4.0); Lymphocytes % 21.3 % (21.3-54.2); Mean Corpuscular Hemoglobin 30 PG (27-34); Mean Corpuscular Volume 89.4 FL (87-102); Mean Platelet Volume 11.3 FL (9.6-12.0); Monocytes # 0.5 10*3/uL (0.11-0.8); Monocytes % 5.6 % (1.7-12.7); Neutrophils # 5.7 10*3/uL (1.4-7.4); Neutrophils % 71.2 % (38.7-73.9); Platelet Count 89 T/CUMM (130-400); Red Blood Count 2.93 MC/CUMM (3.8-5.5); Red Cell Distribution Width 12.6 % (9.3-17.3)
[2017-09-04 05:32] LABS: Eosinophils 2 % (0-10); Hypochromasia 1+; Lymphocytes 18 % (20-55); Microcytosis 1+; Ovalocytes Slight; Platelet Estimate Decreased; Segmented Neutrophils 77 % (50-85); Total Cells Counted 100
[2017-09-04 05:38] LABS: Alanine Aminotransferase 12 U/L (13-56); Albumin 2.7 G/DL (3.4-5.0); Alkaline Phosphatase 62 U/L (45-117); Aspartate Amino Transferase 13 U/L (0-37); Bilirubin,Indirect 0.3 MG/DL (0.0-1.0); Blood Urea Nitrogen 23 MG/DL (7-18); Calcium 7.6 MG/DL (8.5-10.1); Glucose 91 MG/DL (74-106); Osmolality,Calculated 278.7 MOS/KG (273-304); Potassium 4.5 MMOL/L (3.5-5.1); Sodium 138 MMOL/L (136-145)
[2017-09-04 05:40] LABS: Troponin I Only 0.387 NG/ML (0.00-0.045)
[2017-09-04] MEDS: ALPRAZolam 0.5 MG TABLET PO PRN (05:47)
[2017-09-04] MEDS ORDERED: FUROSEMIDE 40 MG/4 ML VIAL IV ONE (06:00)
[2017-09-04] MEDS: FERROUS SULFATE 325 MG TABLET PO SCH (08:46)
[2017-09-04] MEDS: PANTOPRAZOLE 40 MG TABLET PO SCH (08:46)
[2017-09-04] MEDS: DOCUSATE SODIUM 100 MG CAPSULE PO SCH (08:47)
[2017-09-04] MEDS: ALPRAZolam 0.5 MG TABLET PO SCH ×3 (08:47→20:24)
[2017-09-04] MEDS: MORPHINE ER 30 MG TABLET PO SCH ×3 (08:47→20:23)
[2017-09-04] MEDS: CHLORHEXIDINE 0.12% ORAL RINSE 60 ML BOTTLE SWISH/SPIT SCH ×2 (08:48→20:31)
[2017-09-04] MEDS: ONDANSETRON 4 MG/2 ML VIAL IV PRN (09:38)
[2017-09-04] MEDS: HYDROCORTISONE 1% CREAM 28 GM TUBE TOP PRN ×2 (13:30→22:22)
[2017-09-04] MEDS: SERTRALINE 25 MG TABLET PO SCH (20:24)
[2017-09-04] MEDS: ATORVASTATIN 40 MG TABLET PO SCH (20:24)
[2017-09-04] MEDS: traZODone 50 MG TABLET PO SCH (20:24)
[2017-09-05] MEDS: ALBUTEROL/IPRATROPIUM 3 ML NEB RESP TX SCH ×4 (01:15→19:50)
[2017-09-05] MEDS: ALPRAZolam 0.5 MG TABLET PO PRN (02:59)
[2017-09-05] MEDS: KETOROLAC 30 MG/1 ML VIAL IV PRN (03:02)
[2017-09-05 05:41] LABS: Eosinophils # 0.3 10*3/uL (0.0-0.87); Eosinophils % 4.1 % (0.00-10.9); Hematocrit 28.7 VOL% (35.7-47.0); Hemoglobin 9.7 GM/DL (12.0-16.0); Immature Granulocytes % 0.4 %; Immature Granulocytes Absolute 0.03 #; Lymphocytes # 1.6 10*3/uL (1.4-4.0); Mean Corpuscular HGB Conc 33.8 GM/DL (32-36); Mean Corpuscular Hemoglobin 30 PG (27-34); Mean Corpuscular Volume 89.4 FL (87-102); Mean Platelet Volume 11.4 FL (9.6-12.0); Monocytes # 0.5 10*3/uL (0.11-0.8); Monocytes % 5.8 % (1.7-12.7); Neutrophils # 5.4 10*3/uL (1.4-7.4); Neutrophils % 69.7 % (38.7-73.9); Platelet Count 121 T/CUMM (130-400); Red Blood Count 3.21 MC/CUMM (3.8-5.5); Red Cell Distribution Width 12.6 % (9.3-17.3); White Blood Count 7.8 T/CUMM (4-12)
[2017-09-05 06:24] LABS: Alanine Aminotransferase 12 U/L (13-56); Albumin 2.6 G/DL (3.4-5.0); Alkaline Phosphatase 69 U/L (45-117); Aspartate Amino Transferase 12 U/L (0-37); Bilirubin,Indirect 0.4 MG/DL (0.0-1.0); Blood Urea Nitrogen 14 MG/DL (7-18); Glucose 96 MG/DL (74-106); Osmolality,Calculated 281.3 MOS/KG (273-304); Potassium 3.8 MMOL/L (3.5-5.1); Sodium 141 MMOL/L (136-145); Total Protein 5.1 G/DL (6.4-8.3)
[2017-09-05 06:25] LABS: Troponin I Only 0.308 NG/ML (0.00-0.045)
[2017-09-05] MEDS: PANTOPRAZOLE 40 MG TABLET PO SCH (09:12)
[2017-09-05] MEDS: FERROUS SULFATE 325 MG TABLET PO SCH (09:12)
[2017-09-05] MEDS: ALPRAZolam 0.5 MG TABLET PO SCH ×3 (09:12→21:28)
[2017-09-05] MEDS: CHLORHEXIDINE 0.12% ORAL RINSE 60 ML BOTTLE SWISH/SPIT SCH ×2 (09:13→21:29)
[2017-09-05] MEDS: DOCUSATE SODIUM 100 MG CAPSULE PO SCH (09:13)
[2017-09-05] MEDS: MORPHINE ER 30 MG TABLET PO SCH ×3 (09:13→21:28)
[2017-09-05] MEDS: HYDROCORTISONE 1% CREAM 28 GM TUBE TOP PRN ×2 (13:54→21:31)
[2017-09-05] MEDS: traZODone 50 MG TABLET PO SCH (21:28)
[2017-09-05] MEDS: SERTRALINE 25 MG TABLET PO SCH (21:28)
[2017-09-05] MEDS: ATORVASTATIN 40 MG TABLET PO SCH (21:28)
[2017-09-06] MEDS: HYDROmorphone 2 MG/1 ML VIAL IV PRN (00:32)
[2017-09-06] MEDS: ALBUTEROL/IPRATROPIUM 3 ML NEB RESP TX SCH ×4 (00:42→19:10)
[2017-09-06] MEDS: ALPRAZolam 0.5 MG TABLET PO PRN (03:47)
[2017-09-06] MEDS: ONDANSETRON 4 MG/2 ML VIAL IV PRN (03:50)
[2017-09-06] MEDS: cloNIDine 0.1 MG TABLET PO SCH ×2 (06:50→14:33)
[2017-09-06] MEDS: MORPHINE ER 30 MG TABLET PO SCH ×3 (09:01→22:11)
[2017-09-06] MEDS: FERROUS SULFATE 325 MG TABLET PO SCH (09:01)
[2017-09-06] MEDS: DOCUSATE SODIUM 100 MG CAPSULE PO SCH (09:01)
[2017-09-06] MEDS: ALPRAZolam 0.5 MG TABLET PO SCH ×3 (09:01→22:11)
[2017-09-06] MEDS: CHLORHEXIDINE 0.12% ORAL RINSE 60 ML BOTTLE SWISH/SPIT SCH ×2 (09:14→22:58)
[2017-09-06] MEDS: PANTOPRAZOLE 40 MG TABLET PO SCH (09:15)
[2017-09-06 11:43] LABS: Basophils % 0.1 % (0.0-0.8); Eosinophils # 0.5 10*3/uL (0.0-0.87); Eosinophils % 5.5 % (0.00-10.9); Hemoglobin 10.1 GM/DL (12.0-16.0); Immature Granulocytes % 0.3 %; Immature Granulocytes Absolute 0.03 #; Lymphocytes # 1.2 10*3/uL (1.4-4.0); Lymphocytes % 14.3 % (21.3-54.2); Mean Corpuscular HGB Conc 32.6 GM/DL (32-36); Mean Corpuscular Hemoglobin 30 PG (27-34); Mean Corpuscular Volume 90.6 FL (87-102); Monocytes # 0.5 10*3/uL (0.11-0.8); Neutrophils # 6.4 10*3/uL (1.4-7.4); Neutrophils % 73.8 % (38.7-73.9); Platelet Count 155 T/CUMM (130-400); Red Blood Count 3.42 MC/CUMM (3.8-5.5); Red Cell Distribution Width 12.6 % (9.3-17.3); White Blood Count 8.7 T/CUMM (4-12)
[2017-09-06 12:00] LABS: Calcium 8.1 MG/DL (8.5-10.1); Osmolality,Calculated 274.7 MOS/KG (273-304); Potassium 4.1 MMOL/L (3.5-5.1)
[2017-09-06] MEDS: LISINOPRIL 5 MG TABLET PO SCH (16:23)
[2017-09-06] MEDS: ASPIRIN EC 81 MG TABLET PO SCH (17:19)
[2017-09-06] MEDS: SERTRALINE 25 MG TABLET PO SCH (22:11)
[2017-09-06] MEDS: traZODone 50 MG TABLET PO SCH (22:11)
[2017-09-06] MEDS: ATORVASTATIN 40 MG TABLET PO SCH (22:11)
[2017-09-07] MEDS: ALBUTEROL/IPRATROPIUM 3 ML NEB RESP TX SCH ×4 (00:50→21:02)
[2017-09-07 04:45] LABS: Basophils % 0.1 % (0.0-0.8); Eosinophils # 0.3 10*3/uL (0.0-0.87); Eosinophils % 4.3 % (0.00-10.9); Hematocrit 29.9 VOL% (35.7-47.0); Hemoglobin 9.8 GM/DL (12.0-16.0); Immature Granulocytes % 0.3 %; Immature Granulocytes Absolute 0.02 #; Lymphocytes # 1.5 10*3/uL (1.4-4.0); Lymphocytes % 20.7 % (21.3-54.2); Mean Corpuscular HGB Conc 32.8 GM/DL (32-36); Mean Corpuscular Hemoglobin 30 PG (27-34); Mean Corpuscular Volume 91.4 FL (87-102); Mean Platelet Volume 10.7 FL (9.6-12.0); Monocytes # 0.5 10*3/uL (0.11-0.8); Monocytes % 6.6 % (1.7-12.7); Neutrophils # 4.9 10*3/uL (1.4-7.4); Platelet Count 139 T/CUMM (130-400); Red Blood Count 3.27 MC/CUMM (3.8-5.5); Red Cell Distribution Width 12.7 % (9.3-17.3); White Blood Count 7.3 T/CUMM (4-12)
[2017-09-07 05:18] LABS: Alanine Aminotransferase 14 U/L (13-56); Albumin 2.8 G/DL (3.4-5.0); Alkaline Phosphatase 82 U/L (45-117); Aspartate Amino Transferase 13 U/L (0-37); Bilirubin,Indirect 0.8 MG/DL (0.0-1.0); Blood Urea Nitrogen 10 MG/DL (7-18); Calcium 8.1 MG/DL (8.5-10.1); Glucose 94 MG/DL (74-106); Osmolality,Calculated 279.3 MOS/KG (273-304); Potassium 3.8 MMOL/L (3.5-5.1); Sodium 141 MMOL/L (136-145); Total Protein 5.5 G/DL (6.4-8.3)
[2017-09-07 05:20] LABS: Calcium 8.2 MG/DL (8.5-10.1); Magnesium 1.9 MG/DL (1.8-2.4); Osmolality,Calculated 279.3 MOS/KG (273-304); Potassium 3.8 MMOL/L (3.5-5.1); Troponin I Only 0.111 NG/ML (0.00-0.045)
[2017-09-07] MEDS: FERROUS SULFATE 325 MG TABLET PO SCH (08:50)
[2017-09-07] MEDS: MORPHINE ER 30 MG TABLET PO SCH ×3 (08:50→22:05)
[2017-09-07] MEDS: LISINOPRIL 5 MG TABLET PO SCH (08:50)
[2017-09-07] MEDS: ALPRAZolam 0.5 MG TABLET PO SCH ×3 (08:50→22:05)
[2017-09-07] MEDS: PANTOPRAZOLE 40 MG TABLET PO SCH (08:50)
[2017-09-07] MEDS: ASPIRIN EC 81 MG TABLET PO SCH (08:50)
[2017-09-07] MEDS: DOCUSATE SODIUM 100 MG CAPSULE PO SCH (08:50)
[2017-09-07] MEDS: CHLORHEXIDINE 0.12% ORAL RINSE 60 ML BOTTLE SWISH/SPIT SCH ×2 (09:52→22:06)
[2017-09-07] MEDS: KETOROLAC 30 MG/1 ML VIAL IV PRN (15:49)
[2017-09-07] MEDS: ALPRAZolam 0.5 MG TABLET PO PRN (15:50)
[2017-09-07] MEDS: SERTRALINE 25 MG TABLET PO SCH (22:05)
[2017-09-07] MEDS: ATORVASTATIN 40 MG TABLET PO SCH (22:05)
[2017-09-07] MEDS: traZODone 50 MG TABLET PO SCH (22:06)
[2017-09-08] MEDS: ALBUTEROL/IPRATROPIUM 3 ML NEB RESP TX SCH ×4 (02:31→20:32)
[2017-09-08] MEDS: KETOROLAC 30 MG/1 ML VIAL IV PRN (05:09)
[2017-09-08 05:42] LABS: Basophils % 0.2 % (0.0-0.8); Eosinophils # 0.2 10*3/uL (0.0-0.87); Eosinophils % 4.5 % (0.00-10.9); Hematocrit 26.6 VOL% (35.7-47.0); Hemoglobin 8.9 GM/DL (12.0-16.0); Immature Granulocytes % 0.6 %; Immature Granulocytes Absolute 0.03 #; Lymphocytes # 0.9 10*3/uL (1.4-4.0); Lymphocytes % 17.1 % (21.3-54.2); Mean Corpuscular HGB Conc 33.5 GM/DL (32-36); Mean Corpuscular Hemoglobin 31 PG (27-34); Mean Platelet Volume 11.4 FL (9.6-12.0); Monocytes # 0.4 10*3/uL (0.11-0.8); Monocytes % 8.1 % (1.7-12.7); Neutrophils # 3.6 10*3/uL (1.4-7.4); Neutrophils % 69.5 % (38.7-73.9); Platelet Count 142 T/CUMM (130-400); Red Blood Count 2.89 MC/CUMM (3.8-5.5); Red Cell Distribution Width 12.8 % (9.3-17.3); White Blood Count 5.2 T/CUMM (4-12)
[2017-09-08 06:04] LABS: Alanine Aminotransferase 13 U/L (13-56); Albumin 2.7 G/DL (3.4-5.0); Alkaline Phosphatase 83 U/L (45-117); Aspartate Amino Transferase 14 U/L (0-37); Bilirubin,Indirect 0.4 MG/DL (0.0-1.0); Blood Urea Nitrogen 12 MG/DL (7-18); Calcium 7.9 MG/DL (8.5-10.1); Glucose 99 MG/DL (74-106); Magnesium 2.1 MG/DL (1.8-2.4); Osmolality,Calculated 280.3 MOS/KG (273-304); Potassium 3.9 MMOL/L (3.5-5.1); Sodium 141 MMOL/L (136-145)
[2017-09-08 06:19] LABS: Troponin I Only 0.076 NG/ML (0.00-0.045)
[2017-09-08] MEDS: FERROUS SULFATE 325 MG TABLET PO SCH (09:00)
[2017-09-08] MEDS: LISINOPRIL 5 MG TABLET PO SCH (09:00)
[2017-09-08] MEDS: PANTOPRAZOLE 40 MG TABLET PO SCH (09:00)
[2017-09-08] MEDS: ALPRAZolam 0.5 MG TABLET PO SCH ×3 (09:00→21:45)
[2017-09-08] MEDS: ASPIRIN EC 81 MG TABLET PO SCH (09:00)
[2017-09-08] MEDS: MORPHINE ER 30 MG TABLET PO SCH ×3 (09:00→21:45)
[2017-09-08] MEDS: DOCUSATE SODIUM 100 MG CAPSULE PO SCH (09:01)
[2017-09-08] MEDS: CHLORHEXIDINE 0.12% ORAL RINSE 60 ML BOTTLE SWISH/SPIT SCH ×2 (09:01→21:45)
[2017-09-08] MEDS: ALPRAZolam 0.5 MG TABLET PO PRN (16:24)
[2017-09-08] MEDS: SERTRALINE 25 MG TABLET PO SCH (21:45)
[2017-09-08] MEDS: ATORVASTATIN 40 MG TABLET PO SCH (21:45)
[2017-09-08] MEDS: traZODone 50 MG TABLET PO SCH (21:45)
[2017-09-09] MEDS: ALBUTEROL/IPRATROPIUM 3 ML NEB RESP TX SCH ×4 (01:37→21:33)
[2017-09-09] MEDS: ONDANSETRON 4 MG/2 ML VIAL IV PRN (08:29)
[2017-09-09] MEDS: PANTOPRAZOLE 40 MG TABLET PO SCH (08:33)
[2017-09-09] MEDS: FERROUS SULFATE 325 MG TABLET PO SCH (08:33)
[2017-09-09] MEDS: ALPRAZolam 0.5 MG TABLET PO SCH ×3 (08:34→21:07)
[2017-09-09] MEDS: DOCUSATE SODIUM 100 MG CAPSULE PO SCH (08:34)
[2017-09-09] MEDS: MORPHINE ER 30 MG TABLET PO SCH ×3 (08:34→21:07)
[2017-09-09] MEDS: LISINOPRIL 5 MG TABLET PO SCH (08:34)
[2017-09-09] MEDS: ASPIRIN EC 81 MG TABLET PO SCH (08:34)
[2017-09-09] MEDS: CHLORHEXIDINE 0.12% ORAL RINSE 60 ML BOTTLE SWISH/SPIT SCH ×2 (08:35→21:07)
[2017-09-09] MEDS: ATORVASTATIN 40 MG TABLET PO SCH (21:07)
[2017-09-09] MEDS: traZODone 50 MG TABLET PO SCH (21:07)
[2017-09-09] MEDS: SERTRALINE 25 MG TABLET PO SCH (21:07)
[2017-09-10] MEDS: ALBUTEROL/IPRATROPIUM 3 ML NEB RESP TX SCH ×3 (02:12→14:08)
[2017-09-10] MEDS: PANTOPRAZOLE 40 MG TABLET PO SCH (08:26)
[2017-09-10] MEDS: LISINOPRIL 5 MG TABLET PO SCH (08:26)
[2017-09-10] MEDS: DOCUSATE SODIUM 100 MG CAPSULE PO SCH (08:26)
[2017-09-10] MEDS: ASPIRIN EC 81 MG TABLET PO SCH (08:26)
[2017-09-10] MEDS: ALPRAZolam 0.5 MG TABLET PO SCH ×2 (08:27→11:17)
[2017-09-10] MEDS: FERROUS SULFATE 325 MG TABLET PO SCH (08:27)
[2017-09-10] MEDS: MORPHINE ER 30 MG TABLET PO SCH ×2 (08:27→13:59)
[2017-09-10] MEDS: CHLORHEXIDINE 0.12% ORAL RINSE 60 ML BOTTLE SWISH/SPIT SCH (08:29)
[2017-09-10 09:07] VITALS: BP 139/75
== END 2017-09-10 14:29 | disposition home health service (06) | DRG 219 ==
LOC: N.ED 15:25 → N.EDINP 18:21 → N.TELES 19:01 → N.CVR 08-31 08:12 → N.ICU 09-01 12:29 → N.TELES 09-03 10:10
PROVIDERS: ADMIT Internal Medicine Cardiovascular Disease; ATTEND Internal Medicine Cardiovascular Disease

== ENCOUNTER 2017-12-02 09:36 | Inpatient (IN) ==
[2017-12-02] MEDS ORDERED: SODIUM CHLORIDE 0.9% 1,000 ML IV STA (10:05)
[2017-12-02] MEDS ORDERED: ONDANSETRON 4 MG/2 ML VIAL IV STA (10:05)
[2017-12-02 11:11] LABS: Eosinophils % 0.4 % (0.00-10.9); Hematocrit 36.1 VOL% (35.7-47.0); Hemoglobin 12.1 GM/DL (12.0-16.0); Immature Granulocytes % 0.4 %; Immature Granulocytes Absolute 0.02 #; Lymphocytes # 1.2 10*3/uL (1.4-4.0); Lymphocytes % 22.6 % (21.3-54.2); Mean Corpuscular HGB Conc 33.5 GM/DL (32-36); Mean Corpuscular Hemoglobin 29 PG (27-34); Mean Platelet Volume 10.4 FL (9.6-12.0); Monocytes # 0.2 10*3/uL (0.11-0.8); Monocytes % 4.1 % (1.7-12.7); Neutrophils # 3.9 10*3/uL (1.4-7.4); Neutrophils % 72.5 % (38.7-73.9); Platelet Count 176 T/CUMM (130-400); Red Blood Count 4.15 MC/CUMM (3.8-5.5); Red Cell Distribution Width 12.3 % (9.3-17.3); White Blood Count 5.4 T/CUMM (4-12)
[2017-12-02 11:25] LABS: Apearance,Urine CLEAR (Clear); Bilirubin,Urine Negative (Negative); Blood, Urine Negative (Negative); Glucose,Urine (UA) Negative (Negative); Ketones,Urine Negative (Negative); Mucus,Urine Few /LPF (Occasional); Nitrite,Urine Negative (Negative); Protein,Urine Negative; RBC,Urine 1 /HPF (0-4); Squamous Epithelial Cell,Urine Occasional /HPF (0-10); Urine Color Yellow (Yellow); Urine Specific Gravity 1.016 (1.001-1.035); Urine Urobilinogen < 2.0 EU/DL (0.2-1.0); WBC,Urine 1 /HPF (0-6)
[2017-12-02 11:45] LABS: Albumin 3.5 G/DL (3.4-5.0); Bilirubin,Total 0.6 MG/DL (0.2-1.0); Calcium 8.8 MG/DL (8.5-10.1); Potassium 3.8 MMOL/L (3.5-5.1); Total Protein 7.7 G/DL (6.4-8.3)
[2017-12-02] MEDS ORDERED: ACETAMINOPHEN 325 MG TABLET PO PRN (12:53)
[2017-12-02] MEDS ORDERED: DEXTROSE 5% NACL 0.45% 1,000 ML IV SCH (13:00)
[2017-12-02] MEDS: ONDANSETRON 4 MG/2 ML VIAL IV PRN ×4 (14:13→23:27)
[2017-12-02] MEDS: FUROSEMIDE 40 MG TABLET PO SCH (15:56)
[2017-12-02] MEDS: MORPHINE ER 30 MG TABLET PO SCH ×2 (15:56→20:10)
[2017-12-02] MEDS ORDERED: cloNIDine 0.1 MG TABLET PO ONE (16:26)
[2017-12-02] MEDS: SODIUM CHLOR 0.9% KCL 20 MEQ 20 MEQ/1,000 ML BAG IV SCH (19:08)
[2017-12-02] MEDS: DOCUSATE SODIUM 100 MG CAPSULE PO SCH (20:10)
[2017-12-02] MEDS: traZODone 50 MG TABLET PO SCH (20:11)
[2017-12-02] MEDS: ALPRAZolam 0.5 MG TABLET PO SCH (20:11)
[2017-12-02] MEDS: CARVEDILOL 25 MG TABLET PO SCH (20:11)
[2017-12-03] MEDS: SODIUM CHLOR 0.9% KCL 20 MEQ 20 MEQ/1,000 ML BAG IV SCH ×3 (03:12→21:04)
[2017-12-03] MEDS: ONDANSETRON 4 MG/2 ML VIAL IV PRN (04:02)
[2017-12-03 07:19] LABS: Basophils % 0.3 % (0.0-0.8); Eosinophils # 0.1 10*3/uL (0.0-0.87); Eosinophils % 1.7 % (0.00-10.9); Hematocrit 33.6 VOL% (35.7-47.0); Hemoglobin 11.2 GM/DL (12.0-16.0); Immature Granulocytes % 0.3 %; Immature Granulocytes Absolute 0.02 #; Lymphocytes # 1.3 10*3/uL (1.4-4.0); Mean Corpuscular HGB Conc 33.3 GM/DL (32-36); Mean Corpuscular Hemoglobin 30 PG (27-34); Mean Corpuscular Volume 88.7 FL (87-102); Mean Platelet Volume 10.3 FL (9.6-12.0); Monocytes # 0.3 10*3/uL (0.11-0.8); Monocytes % 4.8 % (1.7-12.7); Neutrophils # 4.1 10*3/uL (1.4-7.4); Neutrophils % 70.9 % (38.7-73.9); Platelet Count 161 T/CUMM (130-400); Red Blood Count 3.79 MC/CUMM (3.8-5.5); Red Cell Distribution Width 12.4 % (9.3-17.3); White Blood Count 5.8 T/CUMM (4-12)
[2017-12-03 08:07] LABS: Albumin 3.2 G/DL (3.4-5.0); Bilirubin,Total 0.7 MG/DL (0.2-1.0); Calcium 8.2 MG/DL (8.5-10.1); Free T4 (Free Thyroxine) 1.2 NG/DL (0.76-1.46); Osmolality,Calculated 277.4 MOS/KG (273-304); Potassium 3.9 MMOL/L (3.5-5.1); Thyroid Stimulating Hormone 0.546 uIU/ml (0.358-3.74); Total Protein 6.2 G/DL (6.4-8.3)
[2017-12-03 08:49] LABS: Hepatitis A Ab IgM Quant 0.35 Index; Hepatitis A Ab IgM Result Negative (Negative); Hepatitis B Core IgM Quant 0.18 Index; Hepatitis B Core IgM Result Negative (Negative); Hepatitis B Surface Ag Quant < 0.10 Index; Hepatitis B Surface Ag Result Negative (Negative); Hepatitis C Virus Ab Quant 0.38 Index; Hepatitis C Virus Ab Result Negative (Negative)
[2017-12-03] MEDS ORDERED: PANTOPRAZOLE 40 MG TABLET PO SCH (09:00)
[2017-12-03 09:19] LABS: Sedimentation Rate-Westergren 23 MM/HR (0-30)
[2017-12-03] MEDS: MORPHINE ER 30 MG TABLET PO SCH ×3 (12:19→21:04)
[2017-12-03] MEDS: PANTOPRAZOLE 40 MG TABLET PO SCH (12:19)
[2017-12-03] MEDS: FUROSEMIDE 40 MG TABLET PO SCH ×2 (12:19→16:12)
[2017-12-03] MEDS: DOCUSATE SODIUM 100 MG CAPSULE PO SCH ×2 (12:20→21:05)
[2017-12-03] MEDS: POTASSIUM CHLORIDE 20 MEQ TABLET PO SCH (12:20)
[2017-12-03] MEDS: LISINOPRIL 5 MG TABLET PO SCH (12:21)
[2017-12-03] MEDS: ALPRAZolam 0.25 MG TABLET PO SCH (12:21)
[2017-12-03] MEDS: CARVEDILOL 25 MG TABLET PO SCH ×2 (12:21→21:05)
[2017-12-03] MEDS ORDERED: cloNIDine 0.2 MG/24 HR PATCH TRANSDERM SCH (13:30)
[2017-12-03] MEDS: PROMETHAZINE 25 MG/1 ML VIAL IM PRN ×2 (17:15→21:05)
[2017-12-03] MEDS: ALPRAZolam 0.5 MG TABLET PO SCH ×2 (17:16→21:05)
[2017-12-03] MEDS: traZODone 50 MG TABLET PO SCH (21:04)
[2017-12-03 23:47] LABS: Apearance,Urine CLEAR (Clear); Bilirubin,Urine Negative (Negative); Blood, Urine Moderate mg/dL (Negative); Glucose,Urine (UA) Negative (Negative); Hyaline Casts,Urine 14 /LPF (0-3); Ketones,Urine Negative (Negative); Mucus,Urine Occasional /LPF (Occasional); Nitrite,Urine Negative (Negative); Protein,Urine Negative; RBC,Urine 1 /HPF (0-4); Squamous Epithelial Cell,Urine Occasional /HPF (0-10); Urine Color Colorless (Yellow); Urine Specific Gravity 1.004 (1.001-1.035); Urine Urobilinogen < 2.0 EU/DL (0.2-1.0); WBC,Urine 1 /HPF (0-6)
[2017-12-04] MEDS: SODIUM CHLOR 0.9% KCL 20 MEQ 20 MEQ/1,000 ML BAG IV SCH ×3 (05:04→14:00)
[2017-12-04] MEDS: PROMETHAZINE 25 MG/1 ML VIAL IM PRN ×4 (05:59→21:18)
[2017-12-04 07:40] LABS: Basophils % 0.2 % (0.0-0.8); Eosinophils # 0.1 10*3/uL (0.0-0.87); Eosinophils % 2.2 % (0.00-10.9); Hematocrit 32.9 VOL% (35.7-47.0); Hemoglobin 11.1 GM/DL (12.0-16.0); Immature Granulocytes % 0.2 %; Immature Granulocytes Absolute 0.01 #; Lymphocytes # 1.8 10*3/uL (1.4-4.0); Lymphocytes % 36.3 % (21.3-54.2); Mean Corpuscular HGB Conc 33.7 GM/DL (32-36); Mean Corpuscular Hemoglobin 29 PG (27-34); Mean Corpuscular Volume 86.1 FL (87-102); Mean Platelet Volume 11.3 FL (9.6-12.0); Monocytes # 0.3 10*3/uL (0.11-0.8); Monocytes % 6.9 % (1.7-12.7); Neutrophils # 2.7 10*3/uL (1.4-7.4); Neutrophils % 54.2 % (38.7-73.9); Platelet Count 165 T/CUMM (130-400); Red Blood Count 3.82 MC/CUMM (3.8-5.5); Red Cell Distribution Width 12.9 % (9.3-17.3); White Blood Count 4.9 T/CUMM (4-12)
[2017-12-04 08:14] LABS: Albumin 3.2 G/DL (3.4-5.0); Bilirubin,Total 0.9 MG/DL (0.2-1.0); Calcium 8.4 MG/DL (8.5-10.1); Osmolality,Calculated 282.8 MOS/KG (273-304); Potassium 4.1 MMOL/L (3.5-5.1); Total Protein 6.1 G/DL (6.4-8.3)
[2017-12-04] MEDS: MORPHINE ER 30 MG TABLET PO SCH ×3 (08:55→16:08)
[2017-12-04] MEDS: CARVEDILOL 25 MG TABLET PO SCH ×3 (08:55→22:30)
[2017-12-04] MEDS: PANTOPRAZOLE 40 MG TABLET PO SCH ×2 (08:55→11:36)
[2017-12-04] MEDS: ALPRAZolam 0.25 MG TABLET PO SCH ×2 (08:55→11:36)
[2017-12-04] MEDS: DOCUSATE SODIUM 100 MG CAPSULE PO SCH ×3 (08:55→22:30)
[2017-12-04] MEDS: LISINOPRIL 5 MG TABLET PO SCH ×2 (08:55→11:37)
[2017-12-04] MEDS: POTASSIUM CHLORIDE 20 MEQ TABLET PO SCH ×2 (08:55→11:36)
[2017-12-04] MEDS: FUROSEMIDE 40 MG TABLET PO SCH ×3 (08:55→16:08)
[2017-12-04] MEDS: ONDANSETRON 4 MG/2 ML VIAL IV PRN ×2 (08:58→18:50)
[2017-12-04] MEDS: ALPRAZolam 0.5 MG TABLET PO SCH (13:58)
[2017-12-04] MEDS ORDERED: ALBUTEROL/IPRATROPIUM 3 ML NEB RESP TX PRN (16:56)
[2017-12-04] MEDS ORDERED: hydrALAZINE 20 MG/1 ML VIAL IV PRN (17:18)
[2017-12-04] MEDS ORDERED: SODIUM CHLORIDE 0.9% 250 ML IV ONE (17:24)
[2017-12-05] MEDS: SODIUM CHLOR 0.9% KCL 20 MEQ 20 MEQ/1,000 ML BAG IV SCH ×4 (01:28→21:59)
[2017-12-05] MEDS ORDERED: ASPIRIN 325 MG TABLET ONE (02:43)
[2017-12-05] MEDS ORDERED: NITROGLYCERIN SL 0.4 MG TABLET SL PRN ×2 (02:44→02:50)
[2017-12-05] MEDS ORDERED: ASPIRIN CHEW 81 MG TABLET PO ONE ×2 (02:50→03:00)
[2017-12-05 03:01] LABS: Basophils % 0.3 % (0.0-0.8); Eosinophils # 0.3 10*3/uL (0.0-0.87); Eosinophils % 4.2 % (0.00-10.9); Hematocrit 34.4 VOL% (35.7-47.0); Hemoglobin 11.5 GM/DL (12.0-16.0); Immature Granulocytes % 0.1 %; Immature Granulocytes Absolute 0.01 #; Lymphocytes # 2.1 10*3/uL (1.4-4.0); Lymphocytes % 29.4 % (21.3-54.2); Mean Corpuscular HGB Conc 33.4 GM/DL (32-36); Mean Corpuscular Hemoglobin 29 PG (27-34); Mean Corpuscular Volume 86.9 FL (87-102); Mean Platelet Volume 10.4 FL (9.6-12.0); Monocytes # 0.4 10*3/uL (0.11-0.8); Monocytes % 5.9 % (1.7-12.7); Neutrophils # 4.3 10*3/uL (1.4-7.4); Neutrophils % 60.1 % (38.7-73.9); Platelet Count 173 T/CUMM (130-400); Red Blood Count 3.96 MC/CUMM (3.8-5.5); Red Cell Distribution Width 12.8 % (9.3-17.3); White Blood Count 7.1 T/CUMM (4-12)
[2017-12-05 03:27] LABS: Calcium 8.4 MG/DL (8.5-10.1); Osmolality,Calculated 271.8 MOS/KG (273-304); Potassium 3.9 MMOL/L (3.5-5.1)
[2017-12-05] MEDS ORDERED: MORPHINE 4 MG/1 ML VIAL IV ONE (03:30)
[2017-12-05] MEDS: PROMETHAZINE 25 MG/1 ML VIAL IM PRN ×3 (03:59→22:07)
[2017-12-05] MEDS: DOCUSATE SODIUM 100 MG CAPSULE PO SCH ×2 (08:27→21:58)
[2017-12-05] MEDS: MAGNESIUM SULF RIDER 2 GM in PREMIX 1 EACH IV PRN ×2 (08:40→11:06)
[2017-12-05] MEDS: POTASSIUM CHLORIDE 20 MEQ TABLET PO SCH (08:40)
[2017-12-05] MEDS: CARVEDILOL 25 MG TABLET PO SCH ×2 (08:40→21:57)
[2017-12-05] MEDS: PANTOPRAZOLE 40 MG TABLET PO SCH (08:40)
[2017-12-05] MEDS: FUROSEMIDE 40 MG TABLET PO SCH (08:40)
[2017-12-05] MEDS: LISINOPRIL 5 MG TABLET PO SCH (08:40)
[2017-12-05] MEDS: MORPHINE ER 30 MG TABLET PO PRN ×2 (08:40→21:57)
[2017-12-05] MEDS: ONDANSETRON 4 MG/2 ML VIAL IV PRN (13:48)
[2017-12-05] MEDS: ALPRAZolam 0.25 MG TABLET PO PRN (13:48)
[2017-12-06] MEDS: SODIUM CHLOR 0.9% KCL 20 MEQ 20 MEQ/1,000 ML BAG IV SCH ×3 (05:49→21:43)
[2017-12-06] MEDS: PROMETHAZINE 25 MG/1 ML VIAL IM PRN ×2 (05:50→10:34)
[2017-12-06 06:21] LABS: Basophils % 0.2 % (0.0-0.8); Eosinophils # 0.3 10*3/uL (0.0-0.87); Eosinophils % 4.4 % (0.00-10.9); Hematocrit 34.3 VOL% (35.7-47.0); Hemoglobin 11.7 GM/DL (12.0-16.0); Immature Granulocytes % 0.2 %; Immature Granulocytes Absolute 0.01 #; Lymphocytes # 1.4 10*3/uL (1.4-4.0); Mean Corpuscular HGB Conc 34.1 GM/DL (32-36); Mean Corpuscular Hemoglobin 30 PG (27-34); Mean Corpuscular Volume 86.6 FL (87-102); Monocytes # 0.3 10*3/uL (0.11-0.8); Neutrophils # 3.6 10*3/uL (1.4-7.4); Neutrophils % 64.2 % (38.7-73.9); Platelet Count 177 T/CUMM (130-400); Red Blood Count 3.96 MC/CUMM (3.8-5.5); Red Cell Distribution Width 12.6 % (9.3-17.3); White Blood Count 5.7 T/CUMM (4-12)
[2017-12-06 06:54] LABS: Calcium 8.3 MG/DL (8.5-10.1); Osmolality,Calculated 280.3 MOS/KG (273-304); Potassium 4.1 MMOL/L (3.5-5.1)
[2017-12-06] MEDS: PANTOPRAZOLE 40 MG TABLET PO SCH (12:13)
[2017-12-06] MEDS: MORPHINE ER 30 MG TABLET PO PRN ×2 (12:13→21:42)
[2017-12-06] MEDS: FUROSEMIDE 40 MG TABLET PO SCH (12:13)
[2017-12-06] MEDS: POTASSIUM CHLORIDE 20 MEQ TABLET PO SCH (12:14)
[2017-12-06] MEDS: DOCUSATE SODIUM 100 MG CAPSULE PO SCH ×2 (12:14→20:35)
[2017-12-06] MEDS: CARVEDILOL 25 MG TABLET PO SCH ×2 (12:16→21:43)
[2017-12-06] MEDS: LISINOPRIL 5 MG TABLET PO SCH (14:12)
[2017-12-06] MEDS: traZODone 50 MG TABLET PO PRN (21:43)
[2017-12-07] MEDS: ALPRAZolam 0.25 MG TABLET PO PRN ×2 (00:27→11:15)
[2017-12-07] MEDS: PROMETHAZINE 25 MG/1 ML VIAL IM PRN (02:10)
[2017-12-07 06:31] LABS: Hemoglobin 10.6 GM/DL (12.0-16.0); Red Blood Count 3.65 MC/CUMM (3.8-5.5); White Blood Count 5.9 T/CUMM (4-12)
[2017-12-07 06:32] LABS: Basophils % 0.2 % (0.0-0.8); Eosinophils # 0.2 10*3/uL (0.0-0.87); Eosinophils % 3.7 % (0.00-10.9); Hematocrit 32.3 VOL% (35.7-47.0); Immature Granulocytes % 0.3 %; Immature Granulocytes Absolute 0.02 #; Lymphocytes # 1.7 10*3/uL (1.4-4.0); Lymphocytes % 27.9 % (21.3-54.2); Mean Corpuscular HGB Conc 32.8 GM/DL (32-36); Mean Corpuscular Hemoglobin 29 PG (27-34); Mean Corpuscular Volume 88.5 FL (87-102); Mean Platelet Volume 10.7 FL (9.6-12.0); Monocytes # 0.3 10*3/uL (0.11-0.8); Monocytes % 5.4 % (1.7-12.7); Neutrophils # 3.7 10*3/uL (1.4-7.4); Neutrophils % 62.5 % (38.7-73.9); Platelet Count 181 T/CUMM (130-400); Red Cell Distribution Width 12.7 % (9.3-17.3)
[2017-12-07 07:06] LABS: Osmolality,Calculated 277.4 MOS/KG (273-304); Potassium 4.3 MMOL/L (3.5-5.1)
[2017-12-07] MEDS: DOCUSATE SODIUM 100 MG CAPSULE PO SCH ×2 (09:49→20:10)
[2017-12-07] MEDS: SODIUM CHLOR 0.9% KCL 20 MEQ 20 MEQ/1,000 ML BAG IV SCH (09:52)
[2017-12-07] MEDS: CARVEDILOL 25 MG TABLET PO SCH ×2 (09:53→20:11)
[2017-12-07] MEDS: POTASSIUM CHLORIDE 20 MEQ TABLET PO SCH (09:53)
[2017-12-07] MEDS: FUROSEMIDE 40 MG TABLET PO SCH (09:53)
[2017-12-07] MEDS: PANTOPRAZOLE 40 MG TABLET PO SCH (09:54)
[2017-12-07] MEDS: LISINOPRIL 5 MG TABLET PO SCH (09:54)
[2017-12-07] MEDS: MORPHINE ER 30 MG TABLET PO PRN ×2 (09:57→20:10)
[2017-12-07] MEDS: traZODone 50 MG TABLET PO PRN (20:15)
[2017-12-08] MEDS: SODIUM CHLOR 0.9% KCL 20 MEQ 20 MEQ/1,000 ML BAG IV SCH ×2 (00:14→02:52)
[2017-12-08] MEDS: MORPHINE ER 30 MG TABLET PO PRN (04:51)
[2017-12-08 07:20] VITALS: BP 119/74
[2017-12-08] MEDS: DOCUSATE SODIUM 100 MG CAPSULE PO SCH (09:34)
[2017-12-08] MEDS: LISINOPRIL 5 MG TABLET PO SCH (09:34)
[2017-12-08] MEDS: CARVEDILOL 25 MG TABLET PO SCH (09:34)
[2017-12-08] MEDS: POTASSIUM CHLORIDE 20 MEQ TABLET PO SCH (09:35)
[2017-12-08] MEDS: PANTOPRAZOLE 40 MG TABLET PO SCH (09:35)
[2017-12-08] MEDS: ALPRAZolam 0.25 MG TABLET PO PRN (09:35)
[2017-12-08] MEDS: FUROSEMIDE 40 MG TABLET PO SCH (09:35)
== END 2017-12-08 10:30 | disposition home health service (06) | DRG 392 ==
LOC: N.ED 09:36 → N.EDINP 12:53 → N.5E 15:15
PROVIDERS: ADMIT Family Medicine; ATTEND Family Medicine

== ENCOUNTER 2020-10-09 11:45 | Inpatient (IN) ==
[2020-10-09] MEDS ORDERED: SODIUM CHLORIDE 0.9% 1,000 ML IV STA (11:58)
[2020-10-09 12:16] LABS: Basophils % 0.1 % (0.0-0.8); Eosinophils % 0.1 % (0.00-10.9); Hematocrit 45.5 VOL% (35.7-47.0); Hemoglobin 15.2 GM/DL (12.0-16.0); Immature Granulocytes % 0.4 %; Immature Granulocytes Absolute 0.05 #; Lymphocytes # 1.1 10*3/uL (1.4-4.0); Mean Corpuscular HGB Conc 33.4 GM/DL (32-36); Mean Corpuscular Volume 89.2 FL (87-102); Mean Platelet Volume 9.9 FL (9.6-12.0); Monocytes % 2.4 % (1.7-12.7); Platelet Count 356 T/CUMM (130-400); Red Cell Distribution Width 12.5 % (9.3-17.3)
[2020-10-09 12:43] LABS: Albumin 4.5 G/DL (3.4-5.0); Bilirubin,Total 0.6 MG/DL (0.2-1.0); Calcium 10.4 MG/DL (8.5-10.1); Osmolality,Calculated 277.7 MOS/KG (273-304); Potassium 3.7 MMOL/L (3.5-5.1); Total Protein 9.7 G/DL (5.0-7.5)
[2020-10-09] MEDS ORDERED: ACETAMINOPHEN 325 MG TABLET PO PRN (13:54)
[2020-10-09] MEDS: ONDANSETRON 4 MG/2 ML VIAL IV PRN ×2 (14:20→21:23)
[2020-10-09 16:02] LABS: Bilirubin,Urine Negative (Negative); Blood, Urine Negative (Negative); Glucose,Urine (UA) Negative (Negative); Ketones,Urine 5 mg/dL (Negative); Mucus,Urine Moderate /LPF (Occasional); Nitrite,Urine Negative (Negative); Protein,Urine Negative; RBC,Urine 1 /HPF (0-4); Urine Appearance CLEAR (Clear); Urine Color Yellow (Yellow); Urine Specific Gravity > 1.060 (1.001-1.035); Urine Urobilinogen < 2.0 EU/DL (0.2-1.0); WBC,Urine 2 /HPF (0-6)
[2020-10-09] MEDS: SODIUM CHLORIDE 0.9% 1,000 ML IV SCH (17:26)
[2020-10-09] MEDS: GABAPENTIN 600 MG TABLET PO SCH ×2 (17:26→21:20)
[2020-10-09] MEDS: LEVOFLOXACIN INJ 500 MG in PREMIX 1 EACH IV SCH (17:28)
[2020-10-09] MEDS: ONDANSETRON 4 MG TABLET PO PRN (19:41)
[2020-10-09] MEDS: MORPHINE ER 30 MG TABLET PO SCH (19:42)
[2020-10-09] MEDS: metroNIDAZOLE INJ 500 MG in PREMIX 1 EACH IV SCH (19:43)
[2020-10-09] MEDS ORDERED: LOPERAMIDE 1 MG/7.5 ML 30 ML BOTTLE PO PRN (19:53)
[2020-10-09] MEDS ORDERED: NON-FORMULARY MEDICATION (Esomeprazole Magnesium [Nexium] 40 mg Capsule,Delayed Release(Dr PO SCH (21:00)
[2020-10-09] MEDS: ALPRAZolam 0.25 MG TABLET PO PRN (21:03)
[2020-10-09] MEDS: ATORVASTATIN 40 MG TABLET PO SCH (21:03)
[2020-10-09] MEDS: HYOSCYAMINE 0.125 MG TABLET PO SCH (21:03)
[2020-10-09] MEDS: carvediloL 25 MG TABLET PO SCH (21:04)
[2020-10-09] MEDS: SERTRALINE 50 MG TABLET PO SCH (21:21)
[2020-10-09] MEDS: DOCUSATE SODIUM 100 MG CAPSULE PO SCH (21:23)
[2020-10-10] MEDS: ONDANSETRON 4 MG/2 ML VIAL IV PRN ×3 (03:10→19:36)
[2020-10-10] MEDS: metroNIDAZOLE INJ 500 MG in PREMIX 1 EACH IV SCH ×3 (03:12→19:34)
[2020-10-10] MEDS: SODIUM CHLORIDE 0.9% 1,000 ML IV SCH ×4 (03:13→21:19)
[2020-10-10] MEDS: MORPHINE ER 30 MG TABLET PO SCH ×3 (03:34→19:32)
[2020-10-10 05:35] LABS: Basophils % 0.1 % (0.0-0.8); Immature Granulocytes % 0.4 %; Immature Granulocytes Absolute 0.03 #; Lymphocytes # 1.9 10*3/uL (1.4-4.0); Lymphocytes % 22.8 % (21.3-54.2); Mean Corpuscular HGB Conc 32.4 GM/DL (32-36); Mean Corpuscular Volume 92.6 FL (87-102); Mean Platelet Volume 10.3 FL (9.6-12.0); Monocytes % 6.7 % (1.7-12.7); Platelet Count 268 T/CUMM (130-400); Red Blood Count 3.67 MC/CUMM (3.8-5.5); Red Cell Distribution Width 12.7 % (9.3-17.3); White Blood Count 8.3 T/CUMM (4-12)
[2020-10-10] MEDS: ALPRAZolam 0.25 MG TABLET PO PRN ×3 (05:52→21:12)
[2020-10-10 05:59] LABS: Albumin 2.6 G/DL (3.4-5.0); Bilirubin,Total 0.6 MG/DL (0.2-1.0); Calcium 8.3 MG/DL (8.5-10.1); Osmolality,Calculated 275.8 MOS/KG (273-304); Total Protein 6.5 G/DL (5.0-7.5)
[2020-10-10] MEDS: PANTOPRAZOLE 40 MG TABLET PO SCH (11:24)
[2020-10-10] MEDS: FUROSEMIDE 40 MG TABLET PO SCH (11:25)
[2020-10-10] MEDS: GABAPENTIN 600 MG TABLET PO SCH ×3 (11:29→21:11)
[2020-10-10] MEDS: HYOSCYAMINE 0.125 MG TABLET PO SCH ×2 (11:30→21:11)
[2020-10-10] MEDS: carvediloL 25 MG TABLET PO SCH ×2 (11:30→21:13)
[2020-10-10] MEDS: ASPIRIN EC 81 MG TABLET PO SCH (11:30)
[2020-10-10] MEDS: POTASSIUM CHLORIDE 20 MEQ TABLET PO SCH (11:31)
[2020-10-10] MEDS: MULTIVITAMIN (CENTRUM) TABLET PO SCH (11:44)
[2020-10-10] MEDS: DOCUSATE SODIUM 100 MG CAPSULE PO SCH ×2 (11:48→21:13)
[2020-10-10] MEDS: DICYCLOMINE 10 MG CAPSULE PO SCH ×3 (14:48→21:12)
[2020-10-10] MEDS: LEVOFLOXACIN INJ 500 MG in PREMIX 1 EACH IV SCH (18:02)
[2020-10-10] MEDS: ONDANSETRON 4 MG TABLET PO PRN (21:12)
[2020-10-10] MEDS: SERTRALINE 50 MG TABLET PO SCH (21:12)
[2020-10-10] MEDS: ATORVASTATIN 40 MG TABLET PO SCH (21:13)
[2020-10-11] MEDS: metroNIDAZOLE INJ 500 MG in PREMIX 1 EACH IV SCH ×3 (04:11→19:14)
[2020-10-11] MEDS: MORPHINE ER 30 MG TABLET PO SCH ×3 (04:23→19:14)
[2020-10-11] MEDS: ALPRAZolam 0.25 MG TABLET PO PRN ×3 (05:14→21:17)
[2020-10-11] MEDS: ONDANSETRON 4 MG/2 ML VIAL IV PRN (07:13)
[2020-10-11] MEDS: SODIUM CHLORIDE 0.9% 1,000 ML IV SCH ×3 (07:14→21:19)
[2020-10-11] MEDS: carvediloL 25 MG TABLET PO SCH ×2 (08:53→21:16)
[2020-10-11] MEDS: ASPIRIN EC 81 MG TABLET PO SCH (08:53)
[2020-10-11] MEDS: POTASSIUM CHLORIDE 20 MEQ TABLET PO SCH (08:53)
[2020-10-11] MEDS: FUROSEMIDE 40 MG TABLET PO SCH (08:54)
[2020-10-11] MEDS: GABAPENTIN 600 MG TABLET PO SCH ×3 (08:54→21:18)
[2020-10-11] MEDS: HYOSCYAMINE 0.125 MG TABLET PO SCH ×2 (08:54→21:18)
[2020-10-11] MEDS: PANTOPRAZOLE 40 MG TABLET PO SCH (08:54)
[2020-10-11] MEDS: DICYCLOMINE 10 MG CAPSULE PO SCH ×4 (08:54→21:18)
[2020-10-11] MEDS: MULTIVITAMIN (CENTRUM) TABLET PO SCH (08:55)
[2020-10-11] MEDS: DOCUSATE SODIUM 100 MG CAPSULE PO SCH ×2 (08:56→21:18)
[2020-10-11] MEDS: LEVOFLOXACIN INJ 500 MG in PREMIX 1 EACH IV SCH (17:29)
[2020-10-11] MEDS: SERTRALINE 50 MG TABLET PO SCH (21:16)
[2020-10-11] MEDS: ATORVASTATIN 40 MG TABLET PO SCH (21:18)
[2020-10-12] MEDS: ONDANSETRON 4 MG/2 ML VIAL IV PRN ×3 (00:11→20:46)
[2020-10-12] MEDS: ONDANSETRON 4 MG TABLET PO PRN (01:24)
[2020-10-12] MEDS: SODIUM CHLORIDE 0.9% 1,000 ML IV SCH ×3 (03:05→12:40)
[2020-10-12] MEDS: metroNIDAZOLE INJ 500 MG in PREMIX 1 EACH IV SCH ×2 (04:30→20:42)
[2020-10-12] MEDS: MORPHINE ER 30 MG TABLET PO SCH ×3 (04:30→20:43)
[2020-10-12 05:33] LABS: Basophils % 0.2 % (0.0-0.8); Eosinophils # 0.2 10*3/uL (0.0-0.87); Eosinophils % 3.4 % (0.00-10.9); Hematocrit 32.2 VOL% (35.7-47.0); Hemoglobin 10.5 GM/DL (12.0-16.0); Immature Granulocytes % 0.4 %; Immature Granulocytes Absolute 0.02 #; Lymphocytes # 1.6 10*3/uL (1.4-4.0); Lymphocytes % 28.8 % (21.3-54.2); Mean Corpuscular HGB Conc 32.6 GM/DL (32-36); Mean Corpuscular Volume 90.7 FL (87-102); Mean Platelet Volume 10.3 FL (9.6-12.0); Monocytes % 7.2 % (1.7-12.7); Platelet Count 211 T/CUMM (130-400); Red Blood Count 3.55 MC/CUMM (3.8-5.5); Red Cell Distribution Width 12.5 % (9.3-17.3); White Blood Count 5.6 T/CUMM (4-12)
[2020-10-12 06:03] LABS: Albumin 2.9 G/DL (3.4-5.0); Bilirubin,Total 0.8 MG/DL (0.2-1.0); Calcium 7.8 MG/DL (8.5-10.1); Osmolality,Calculated 280.1 MOS/KG (273-304); Total Protein 6.1 G/DL (5.0-7.5)
[2020-10-12 07:15] LABS: Total Protein (Chem) 9.8 G/DL (6.4-8.3)
[2020-10-12 08:22] LABS: Albumin (SPE) 6.1 G/DL (3.2-5.3); Albumin (SPE) Rel % 62.1 %; Alpha 1 (SPE) 0.3 G/DL (0.1-0.4); Alpha 2 (SPE) 1.2 G/DL (0.4-1.0); Alpha 2 (SPE) Rel % 11.8 %; Beta (SPE) Rel % 9.7 %; Gamma (SPE) 1.3 G/DL (0.7-1.7); Gamma (SPE) Rel % 13.4 %
[2020-10-12] MEDS: GABAPENTIN 600 MG TABLET PO SCH ×3 (09:00→20:46)
[2020-10-12] MEDS: DOCUSATE SODIUM 100 MG CAPSULE PO SCH ×2 (09:00→20:47)
[2020-10-12] MEDS: HYOSCYAMINE 0.125 MG TABLET PO SCH ×2 (09:00→20:44)
[2020-10-12] MEDS: DICYCLOMINE 10 MG CAPSULE PO SCH ×4 (09:00→20:46)
[2020-10-12] MEDS: carvediloL 25 MG TABLET PO SCH ×2 (09:27→20:52)
[2020-10-12] MEDS: POTASSIUM CHLORIDE RIDER 10 MEQ in PREMIX 1 EACH IV SCH ×3 (10:41→15:47)
[2020-10-12] MEDS: ALPRAZolam 0.25 MG TABLET PO PRN ×2 (13:53→21:55)
[2020-10-12] MEDS ORDERED: MAGNESIUM SULF RIDER 4 GM in PREMIX 1 EACH IV PRN (15:24)
[2020-10-12] MEDS ORDERED: MAGNESIUM SULF RIDER 2 GM in PREMIX 1 EACH IV PRN (15:24)
[2020-10-12] MEDS: ASPIRIN EC 81 MG TABLET PO SCH (17:17)
[2020-10-12] MEDS: MULTIVITAMIN (CENTRUM) TABLET PO SCH (17:18)
[2020-10-12] MEDS: FUROSEMIDE 40 MG TABLET PO SCH (17:18)
[2020-10-12] MEDS: PANTOPRAZOLE 40 MG TABLET PO SCH (17:18)
[2020-10-12] MEDS: POTASSIUM CHLORIDE 20 MEQ TABLET PO SCH (17:18)
[2020-10-12] MEDS: LEVOFLOXACIN INJ 500 MG in PREMIX 1 EACH IV SCH ×2 (17:32→17:50)
[2020-10-12] MEDS: SERTRALINE 50 MG TABLET PO SCH (20:45)
[2020-10-12] MEDS: ATORVASTATIN 40 MG TABLET PO SCH (20:46)
[2020-10-13] MEDS: SODIUM CHLORIDE 0.9% 1,000 ML IV SCH ×5 (00:24→23:28)
[2020-10-13] MEDS: ONDANSETRON 4 MG/2 ML VIAL IV PRN ×2 (02:01→08:46)
[2020-10-13] MEDS: metroNIDAZOLE INJ 500 MG in PREMIX 1 EACH IV SCH ×3 (04:06→20:24)
[2020-10-13] MEDS: MORPHINE ER 30 MG TABLET PO SCH ×3 (04:08→20:25)
[2020-10-13 05:06] LABS: Basophils % 0.2 % (0.0-0.8); Eosinophils # 0.2 10*3/uL (0.0-0.87); Eosinophils % 3.4 % (0.00-10.9); Hemoglobin 11.1 GM/DL (12.0-16.0); Immature Granulocytes % 0.3 %; Immature Granulocytes Absolute 0.02 #; Lymphocytes # 1.4 10*3/uL (1.4-4.0); Lymphocytes % 23.4 % (21.3-54.2); Mean Corpuscular HGB Conc 33.6 GM/DL (32-36); Mean Corpuscular Volume 89.7 FL (87-102); Mean Platelet Volume 10.1 FL (9.6-12.0); Monocytes % 6.4 % (1.7-12.7); Neutrophils % 66.3 % (38.7-73.9); Platelet Count 202 T/CUMM (130-400); Red Blood Count 3.68 MC/CUMM (3.8-5.5); Red Cell Distribution Width 12.4 % (9.3-17.3); White Blood Count 6.1 T/CUMM (4-12)
[2020-10-13] MEDS: ALPRAZolam 0.25 MG TABLET PO PRN ×3 (05:13→22:00)
[2020-10-13 05:28] LABS: Calcium 7.9 MG/DL (8.5-10.1); Osmolality,Calculated 278.3 MOS/KG (273-304); Potassium 3.3 MMOL/L (3.5-5.1)
[2020-10-13] MEDS: ASPIRIN EC 81 MG TABLET PO SCH (08:41)
[2020-10-13] MEDS: DICYCLOMINE 10 MG CAPSULE PO SCH ×4 (08:42→20:25)
[2020-10-13] MEDS: carvediloL 25 MG TABLET PO SCH ×2 (08:42→20:24)
[2020-10-13] MEDS: MULTIVITAMIN (CENTRUM) TABLET PO SCH (08:42)
[2020-10-13] MEDS: POTASSIUM CHLORIDE 20 MEQ TABLET PO SCH (08:43)
[2020-10-13] MEDS: FUROSEMIDE 40 MG TABLET PO SCH (08:43)
[2020-10-13] MEDS: HYOSCYAMINE 0.125 MG TABLET PO SCH ×2 (08:44→20:24)
[2020-10-13] MEDS: PANTOPRAZOLE 40 MG TABLET PO SCH (08:44)
[2020-10-13] MEDS: GABAPENTIN 600 MG TABLET PO SCH ×3 (08:44→20:25)
[2020-10-13] MEDS: DOCUSATE SODIUM 100 MG CAPSULE PO SCH ×2 (09:00→20:24)
[2020-10-13] MEDS: POTASSIUM CHLORIDE RIDER 10 MEQ in PREMIX 1 EACH IV PRN ×4 (10:28→21:58)
[2020-10-13] MEDS: LEVOFLOXACIN INJ 500 MG in PREMIX 1 EACH IV SCH (16:32)
[2020-10-13] MEDS ORDERED: POLYETHYLENE GLYCOL POWDER 255 GM BOTTLE PO ONE (18:00)
[2020-10-13] MEDS: ATORVASTATIN 40 MG TABLET PO SCH (20:25)
[2020-10-13] MEDS: SERTRALINE 50 MG TABLET PO SCH (20:25)
[2020-10-13 22:51] LABS: IgA Serum (MAYO) 387 mg/dL (61 - 356)
[2020-10-14] MEDS: ONDANSETRON 4 MG/2 ML VIAL IV PRN ×2 (01:21→20:15)
[2020-10-14 01:32] LABS: Basophils % 0.3 % (0.0-0.8); Eosinophils # 0.4 10*3/uL (0.0-0.87); Eosinophils % 5.5 % (0.00-10.9); Hematocrit 33.2 VOL% (35.7-47.0); Hemoglobin 10.9 GM/DL (12.0-16.0); Immature Granulocytes % 0.3 %; Immature Granulocytes Absolute 0.02 #; Lymphocytes # 1.8 10*3/uL (1.4-4.0); Lymphocytes % 26.5 % (21.3-54.2); Mean Corpuscular HGB Conc 32.8 GM/DL (32-36); Monocytes % 6.2 % (1.7-12.7); Neutrophils % 61.2 % (38.7-73.9); Platelet Count 197 T/CUMM (130-400); Red Blood Count 3.61 MC/CUMM (3.8-5.5); Red Cell Distribution Width 12.4 % (9.3-17.3); White Blood Count 6.9 T/CUMM (4-12)
[2020-10-14 01:48] LABS: INR 1.2; PT Patient Result 12.4 SECS (9.8-11.9)
[2020-10-14 01:52] LABS: Potassium 3.4 MMOL/L (3.5-5.1)
[2020-10-14] MEDS: metroNIDAZOLE INJ 500 MG in PREMIX 1 EACH IV SCH ×3 (04:02→20:20)
[2020-10-14] MEDS: MORPHINE ER 30 MG TABLET PO SCH ×3 (04:18→20:19)
[2020-10-14 04:33] LABS: Calcium 7.9 MG/DL (8.5-10.1); Osmolality,Calculated 274.4 MOS/KG (273-304); Potassium 3.4 MMOL/L (3.5-5.1)
[2020-10-14] MEDS: SODIUM CHLORIDE 0.9% 1,000 ML IV SCH ×3 (04:49→20:19)
[2020-10-14] MEDS: POTASSIUM CHLORIDE RIDER 10 MEQ in PREMIX 1 EACH IV PRN ×3 (06:00→11:16)
[2020-10-14] MEDS: ALPRAZolam 0.25 MG TABLET PO PRN ×2 (08:52→18:16)
[2020-10-14] MEDS: carvediloL 25 MG TABLET PO SCH ×2 (08:52→20:20)
[2020-10-14] MEDS: POTASSIUM CHLORIDE 20 MEQ TABLET PO SCH (10:18)
[2020-10-14] MEDS: MULTIVITAMIN (CENTRUM) TABLET PO SCH (10:18)
[2020-10-14] MEDS: DOCUSATE SODIUM 100 MG CAPSULE PO SCH ×2 (10:18→23:08)
[2020-10-14] MEDS: DICYCLOMINE 10 MG CAPSULE PO SCH ×4 (10:18→20:19)
[2020-10-14] MEDS: FUROSEMIDE 40 MG TABLET PO SCH (10:18)
[2020-10-14] MEDS: ASPIRIN EC 81 MG TABLET PO SCH (10:18)
[2020-10-14] MEDS: PANTOPRAZOLE 40 MG TABLET PO SCH (10:19)
[2020-10-14] MEDS: GABAPENTIN 600 MG TABLET PO SCH ×3 (10:19→20:20)
[2020-10-14] MEDS: HYOSCYAMINE 0.125 MG TABLET PO SCH ×2 (10:19→20:19)
[2020-10-14] MEDS: LACTATED RINGERS 1,000 ML IV SCH (12:13)
[2020-10-14] MEDS ORDERED: LIDOCAINE 2% 5 ML VIAL ONE (12:50)
[2020-10-14] MEDS ORDERED: propofoL 200 MG/20 ML VIAL IV ONE (12:50)
[2020-10-14] MEDS ORDERED: ONDANSETRON 4 MG/2 ML VIAL ONE (12:51)
[2020-10-14] MEDS ORDERED: ePHEDrine 50 MG/ML VIAL ONE (13:08)
[2020-10-14] MEDS: LEVOFLOXACIN INJ 500 MG in PREMIX 1 EACH IV SCH (18:12)
[2020-10-14] MEDS: SERTRALINE 50 MG TABLET PO SCH (20:19)
[2020-10-14] MEDS: ATORVASTATIN 40 MG TABLET PO SCH (20:20)
[2020-10-15] MEDS: ALPRAZolam 0.25 MG TABLET PO PRN ×2 (01:45→11:59)
[2020-10-15] MEDS: ONDANSETRON 4 MG/2 ML VIAL IV PRN ×3 (04:16→18:44)
[2020-10-15] MEDS: MORPHINE ER 30 MG TABLET PO SCH ×3 (04:16→20:29)
[2020-10-15] MEDS: metroNIDAZOLE INJ 500 MG in PREMIX 1 EACH IV SCH ×2 (04:18→11:55)
[2020-10-15 05:32] LABS: Basophils % 0.4 % (0.0-0.8); Eosinophils # 0.2 10*3/uL (0.0-0.87); Eosinophils % 3.5 % (0.00-10.9); Hematocrit 33.5 VOL% (35.7-47.0); Hemoglobin 10.7 GM/DL (12.0-16.0); Immature Granulocytes % 0.4 %; Immature Granulocytes Absolute 0.02 #; Lymphocytes # 1.4 10*3/uL (1.4-4.0); Lymphocytes % 24.7 % (21.3-54.2); Mean Corpuscular HGB Conc 31.9 GM/DL (32-36); Mean Corpuscular Volume 92.8 FL (87-102); Mean Platelet Volume 10.9 FL (9.6-12.0); Monocytes % 4.9 % (1.7-12.7); Neutrophils % 66.1 % (38.7-73.9); Platelet Count 202 T/CUMM (130-400); Red Blood Count 3.61 MC/CUMM (3.8-5.5); Red Cell Distribution Width 12.4 % (9.3-17.3); White Blood Count 5.7 T/CUMM (4-12)
[2020-10-15 05:57] LABS: Osmolality,Calculated 278.3 MOS/KG (273-304); Potassium 3.6 MMOL/L (3.5-5.1)
[2020-10-15] MEDS: LACTATED RINGERS 1,000 ML IV SCH (07:00)
[2020-10-15] MEDS: SODIUM CHLORIDE 0.9% 1,000 ML IV SCH ×4 (08:01→21:19)
[2020-10-15] MEDS: ASPIRIN EC 81 MG TABLET PO SCH (08:02)
[2020-10-15] MEDS: DOCUSATE SODIUM 100 MG CAPSULE PO SCH ×2 (08:02→20:30)
[2020-10-15] MEDS: DICYCLOMINE 10 MG CAPSULE PO SCH ×4 (08:02→20:28)
[2020-10-15] MEDS: POTASSIUM CHLORIDE 20 MEQ TABLET PO SCH (08:02)
[2020-10-15] MEDS: carvediloL 25 MG TABLET PO SCH ×2 (08:02→20:28)
[2020-10-15] MEDS: MULTIVITAMIN (CENTRUM) TABLET PO SCH (08:02)
[2020-10-15] MEDS: HYOSCYAMINE 0.125 MG TABLET PO SCH ×2 (08:03→20:28)
[2020-10-15] MEDS: PANTOPRAZOLE 40 MG TABLET PO SCH (08:03)
[2020-10-15] MEDS: GABAPENTIN 600 MG TABLET PO SCH ×3 (08:03→20:28)
[2020-10-15] MEDS: FUROSEMIDE 40 MG TABLET PO SCH (08:03)
[2020-10-15] MEDS ORDERED: ALUM/MAG/SIMETH/LIDO VISC 1:1 30 ML BOTTLE PO ONE (12:35)
[2020-10-15] MEDS: LEVOFLOXACIN INJ 500 MG in PREMIX 1 EACH IV SCH (17:19)
[2020-10-15] MEDS: ATORVASTATIN 40 MG TABLET PO SCH (20:28)
[2020-10-15] MEDS: SERTRALINE 50 MG TABLET PO SCH (20:28)
[2020-10-15] MEDS: ALUM/MAG/SIMETH/LIDO VISC 1:1 30 ML BOTTLE PO PRN (21:19)
[2020-10-16] MEDS: ONDANSETRON 4 MG/2 ML VIAL IV PRN ×4 (02:14→20:37)
[2020-10-16 05:43] LABS: Basophils % 0.2 % (0.0-0.8); Eosinophils # 0.2 10*3/uL (0.0-0.87); Eosinophils % 3.9 % (0.00-10.9); Hematocrit 36.5 VOL% (35.7-47.0); Hemoglobin 11.5 GM/DL (12.0-16.0); Immature Granulocytes % 0.3 %; Immature Granulocytes Absolute 0.02 #; Lymphocytes # 1.6 10*3/uL (1.4-4.0); Lymphocytes % 25.9 % (21.3-54.2); Mean Corpuscular HGB Conc 31.5 GM/DL (32-36); Mean Corpuscular Volume 92.6 FL (87-102); Mean Platelet Volume 10.7 FL (9.6-12.0); Monocytes % 6.6 % (1.7-12.7); Neutrophils % 63.1 % (38.7-73.9); Platelet Count 214 T/CUMM (130-400); Red Blood Count 3.94 MC/CUMM (3.8-5.5); Red Cell Distribution Width 12.6 % (9.3-17.3); White Blood Count 6.2 T/CUMM (4-12)
[2020-10-16 05:57] LABS: Calcium 8.6 MG/DL (8.5-10.1); Osmolality,Calculated 272.7 MOS/KG (273-304); Potassium 3.7 MMOL/L (3.5-5.1)
[2020-10-16] MEDS: MORPHINE ER 30 MG TABLET PO SCH ×3 (06:31→20:38)
[2020-10-16] MEDS: LACTATED RINGERS 1,000 ML IV SCH (07:00)
[2020-10-16] MEDS: SODIUM CHLORIDE 0.9% 1,000 ML IV SCH ×2 (07:01→09:35)
[2020-10-16] MEDS: DICYCLOMINE 10 MG CAPSULE PO SCH ×4 (09:21→20:37)
[2020-10-16] MEDS: MULTIVITAMIN (CENTRUM) TABLET PO SCH (09:22)
[2020-10-16] MEDS: GABAPENTIN 600 MG TABLET PO SCH ×3 (09:22→20:38)
[2020-10-16] MEDS: HYOSCYAMINE 0.125 MG TABLET PO SCH ×2 (09:22→20:38)
[2020-10-16] MEDS: carvediloL 25 MG TABLET PO SCH ×2 (09:22→20:37)
[2020-10-16] MEDS: PANTOPRAZOLE 40 MG TABLET PO SCH (09:22)
[2020-10-16] MEDS: ASPIRIN EC 81 MG TABLET PO SCH (09:22)
[2020-10-16] MEDS: POTASSIUM CHLORIDE 20 MEQ TABLET PO SCH (09:23)
[2020-10-16] MEDS: FUROSEMIDE 40 MG TABLET PO SCH (09:23)
[2020-10-16] MEDS: DOCUSATE SODIUM 100 MG CAPSULE PO SCH ×2 (09:27→20:39)
[2020-10-16] MEDS: ALPRAZolam 0.25 MG TABLET PO PRN ×2 (09:32→20:37)
[2020-10-16] MEDS ORDERED: HYDROCORTISONE 2.5% RECTAL CREAM 30 GM TUBE TOP PRN (11:15)
[2020-10-16] MEDS: LIDOCAINE 5% PATCH TRANSDERM SCH (11:51)
[2020-10-16] MEDS ORDERED: PROMETHAZINE INJ 12.5 MG in SODIUM CHLORIDE 0.9% 50 ML IV PRN (13:25)
[2020-10-16] MEDS: COLESTIPOL 1 GM TABLET PO SCH (15:41)
[2020-10-16] MEDS: LEVOFLOXACIN INJ 500 MG in PREMIX 1 EACH IV SCH (16:00)
[2020-10-16] MEDS: SERTRALINE 50 MG TABLET PO SCH (20:37)
[2020-10-16] MEDS: ATORVASTATIN 40 MG TABLET PO SCH (20:37)
[2020-10-17] MEDS: SODIUM CHLORIDE 0.9% 1,000 ML IV SCH ×2 (00:26→20:25)
[2020-10-17] MEDS: MORPHINE ER 30 MG TABLET PO SCH ×3 (03:22→18:43)
[2020-10-17] MEDS: ONDANSETRON 4 MG/2 ML VIAL IV PRN ×3 (06:25→20:26)
[2020-10-17] MEDS: LACTATED RINGERS 1,000 ML IV SCH (09:38)
[2020-10-17] MEDS: HYOSCYAMINE 0.125 MG TABLET PO SCH ×2 (09:42→20:26)
[2020-10-17] MEDS: carvediloL 25 MG TABLET PO SCH ×2 (09:42→20:26)
[2020-10-17] MEDS: DICYCLOMINE 10 MG CAPSULE PO SCH ×4 (09:42→20:28)
[2020-10-17] MEDS: POTASSIUM CHLORIDE 20 MEQ TABLET PO SCH (09:42)
[2020-10-17] MEDS: PANTOPRAZOLE 40 MG TABLET PO SCH (09:42)
[2020-10-17] MEDS: COLESTIPOL 1 GM TABLET PO SCH (09:42)
[2020-10-17] MEDS: GABAPENTIN 600 MG TABLET PO SCH ×3 (09:42→20:27)
[2020-10-17] MEDS: FUROSEMIDE 40 MG TABLET PO SCH (09:43)
[2020-10-17] MEDS: DOCUSATE SODIUM 100 MG CAPSULE PO SCH ×2 (09:43→20:29)
[2020-10-17] MEDS: LIDOCAINE 5% PATCH TRANSDERM SCH (09:43)
[2020-10-17] MEDS: ASPIRIN EC 81 MG TABLET PO SCH (09:43)
[2020-10-17] MEDS: MULTIVITAMIN (CENTRUM) TABLET PO SCH (09:43)
[2020-10-17] MEDS: ALPRAZolam 0.25 MG TABLET PO PRN ×2 (10:38→20:26)
[2020-10-17] MEDS: SERTRALINE 50 MG TABLET PO SCH (20:26)
[2020-10-17] MEDS: ATORVASTATIN 40 MG TABLET PO SCH (20:27)
[2020-10-17] MEDS: ALUM/MAG/SIMETH/LIDO VISC 1:1 30 ML BOTTLE PO PRN (21:54)
[2020-10-18] MEDS: MORPHINE ER 30 MG TABLET PO SCH ×3 (02:54→17:54)
[2020-10-18] MEDS: POTASSIUM CHLORIDE 20 MEQ TABLET PO SCH (09:16)
[2020-10-18] MEDS: DOCUSATE SODIUM 100 MG CAPSULE PO SCH ×2 (09:16→21:14)
[2020-10-18] MEDS: DICYCLOMINE 10 MG CAPSULE PO SCH ×4 (09:16→21:14)
[2020-10-18] MEDS: COLESTIPOL 1 GM TABLET PO SCH (09:16)
[2020-10-18] MEDS: carvediloL 25 MG TABLET PO SCH ×2 (09:17→21:13)
[2020-10-18] MEDS: GABAPENTIN 600 MG TABLET PO SCH ×3 (09:17→21:12)
[2020-10-18] MEDS: ASPIRIN EC 81 MG TABLET PO SCH (09:17)
[2020-10-18] MEDS: HYOSCYAMINE 0.125 MG TABLET PO SCH ×2 (09:17→21:13)
[2020-10-18] MEDS: FUROSEMIDE 40 MG TABLET PO SCH (09:17)
[2020-10-18] MEDS: PANTOPRAZOLE 40 MG TABLET PO SCH (09:18)
[2020-10-18] MEDS: MULTIVITAMIN (CENTRUM) TABLET PO SCH (09:18)
[2020-10-18] MEDS: LIDOCAINE 5% PATCH TRANSDERM SCH (09:18)
[2020-10-18] MEDS: ATORVASTATIN 40 MG TABLET PO SCH (21:13)
[2020-10-18] MEDS: ALPRAZolam 0.25 MG TABLET PO PRN (21:13)
[2020-10-18] MEDS: SERTRALINE 50 MG TABLET PO SCH (21:14)
[2020-10-18] MEDS: ONDANSETRON 4 MG/2 ML VIAL IV PRN (21:14)
[2020-10-18] MEDS: SODIUM CHLORIDE 0.9% 1,000 ML IV SCH (21:15)
[2020-10-18] MEDS: LACTATED RINGERS 1,000 ML IV SCH (23:16)
[2020-10-19] MEDS: MORPHINE ER 30 MG TABLET PO SCH ×3 (03:15→18:32)
[2020-10-19] MEDS: ONDANSETRON 4 MG/2 ML VIAL IV PRN ×3 (05:32→21:19)
[2020-10-19 05:54] LABS: Basophils % 0.2 % (0.0-0.8); Eosinophils # 0.2 10*3/uL (0.0-0.87); Eosinophils % 3.8 % (0.00-10.9); Hematocrit 32.5 VOL% (35.7-47.0); Hemoglobin 10.6 GM/DL (12.0-16.0); Immature Granulocytes % 0.2 %; Immature Granulocytes Absolute 0.01 #; Lymphocytes # 1.3 10*3/uL (1.4-4.0); Lymphocytes % 24.4 % (21.3-54.2); Mean Corpuscular HGB Conc 32.6 GM/DL (32-36); Mean Corpuscular Volume 92.1 FL (87-102); Mean Platelet Volume 10.8 FL (9.6-12.0); Monocytes % 6.2 % (1.7-12.7); Neutrophils % 65.2 % (38.7-73.9); Platelet Count 152 T/CUMM (130-400); Red Blood Count 3.53 MC/CUMM (3.8-5.5); Red Cell Distribution Width 12.7 % (9.3-17.3); White Blood Count 5.3 T/CUMM (4-12)
[2020-10-19 06:13] LABS: Alanine Aminotransferase 13 U/L (13-56); Albumin 2.7 G/DL (3.4-5.0); Alkaline Phosphatase 154 U/L (45-117); Aspartate Amino Transferase 15 U/L (0-37); Bilirubin,Direct < 0.100 MG/DL (0.0-0.20); Bilirubin,Indirect 0.3 MG/DL (0.0-1.0); Bilirubin,Total < 0.39 MG/DL (0.2-1.0); Blood Urea Nitrogen 10 MG/DL (7-18); Calcium 8.4 MG/DL (8.5-10.1); Carbon Dioxide 32 MMOL/L (21-32); Estimated Glom Filtration Rate 70 ML/MIN; Glucose 104 MG/DL (74-106); Osmolality,Calculated 277.4 MOS/KG (273-304); Potassium 4.2 MMOL/L (3.5-5.1); Sodium 140 MMOL/L (136-145)
[2020-10-19] MEDS: HYOSCYAMINE 0.125 MG TABLET PO SCH ×2 (09:57→21:20)
[2020-10-19] MEDS: DICYCLOMINE 10 MG CAPSULE PO SCH ×4 (09:57→21:20)
[2020-10-19] MEDS: POTASSIUM CHLORIDE 20 MEQ TABLET PO SCH (09:57)
[2020-10-19] MEDS: MULTIVITAMIN (CENTRUM) TABLET PO SCH (09:57)
[2020-10-19] MEDS: ASPIRIN EC 81 MG TABLET PO SCH (09:57)
[2020-10-19] MEDS: COLESTIPOL 1 GM TABLET PO SCH ×2 (09:57→21:20)
[2020-10-19] MEDS: LIDOCAINE 5% PATCH TRANSDERM SCH (09:58)
[2020-10-19] MEDS: DOCUSATE SODIUM 100 MG CAPSULE PO SCH ×2 (09:58→21:21)
[2020-10-19] MEDS: carvediloL 25 MG TABLET PO SCH ×2 (09:58→21:20)
[2020-10-19] MEDS: FUROSEMIDE 40 MG TABLET PO SCH (09:58)
[2020-10-19] MEDS: PANTOPRAZOLE 40 MG TABLET PO SCH (09:59)
[2020-10-19] MEDS: GABAPENTIN 600 MG TABLET PO SCH ×3 (09:59→21:20)
[2020-10-19] MEDS: ALPRAZolam 0.25 MG TABLET PO PRN ×2 (10:43→21:19)
[2020-10-19 11:39] LABS: Tissue Transglutaminase IgA Ab 1.5 U/mL
[2020-10-19] MEDS: LACTATED RINGERS 1,000 ML IV SCH (13:31)
[2020-10-19] MEDS: LACTOBACILLUS RHAMNOSUS GG CAPSULE PO SCH (15:14)
[2020-10-19] MEDS: ALUM/MAG/SIMETH/LIDO VISC 1:1 30 ML BOTTLE PO PRN (18:00)
[2020-10-19] MEDS: SODIUM CHLORIDE 0.9% 1,000 ML IV SCH ×2 (19:38→21:25)
[2020-10-19] MEDS: SERTRALINE 50 MG TABLET PO SCH (21:20)
[2020-10-19] MEDS: ATORVASTATIN 40 MG TABLET PO SCH (21:20)
[2020-10-20] MEDS: MORPHINE ER 30 MG TABLET PO SCH ×3 (03:23→18:03)
[2020-10-20] MEDS: LACTATED RINGERS 1,000 ML IV SCH (07:29)
[2020-10-20] MEDS: ONDANSETRON 4 MG/2 ML VIAL IV PRN ×3 (07:35→23:30)
[2020-10-20] MEDS: COLESTIPOL 1 GM TABLET PO SCH ×2 (08:41→20:41)
[2020-10-20] MEDS: ALPRAZolam 0.25 MG TABLET PO PRN ×2 (08:41→17:20)
[2020-10-20] MEDS: HYOSCYAMINE 0.125 MG TABLET PO SCH ×2 (08:42→20:41)
[2020-10-20] MEDS: ASPIRIN EC 81 MG TABLET PO SCH (08:42)
[2020-10-20] MEDS: PANTOPRAZOLE 40 MG TABLET PO SCH (08:42)
[2020-10-20] MEDS: POTASSIUM CHLORIDE 20 MEQ TABLET PO SCH (08:42)
[2020-10-20] MEDS: GABAPENTIN 600 MG TABLET PO SCH ×3 (08:42→20:40)
[2020-10-20] MEDS: FUROSEMIDE 40 MG TABLET PO SCH (08:42)
[2020-10-20] MEDS: carvediloL 25 MG TABLET PO SCH ×2 (08:42→20:41)
[2020-10-20] MEDS: DOCUSATE SODIUM 100 MG CAPSULE PO SCH ×2 (08:42→20:41)
[2020-10-20] MEDS: MULTIVITAMIN (CENTRUM) TABLET PO SCH (08:42)
[2020-10-20] MEDS: DICYCLOMINE 10 MG CAPSULE PO SCH ×4 (08:42→20:41)
[2020-10-20] MEDS: LACTOBACILLUS RHAMNOSUS GG CAPSULE PO SCH (08:42)
[2020-10-20] MEDS: SODIUM CHLORIDE 0.9% 1,000 ML IV SCH (19:14)
[2020-10-20] MEDS: SERTRALINE 50 MG TABLET PO SCH (20:40)
[2020-10-20] MEDS: ATORVASTATIN 40 MG TABLET PO SCH (20:41)
[2020-10-21] MEDS: ALPRAZolam 0.25 MG TABLET PO PRN ×3 (01:19→20:45)
[2020-10-21] MEDS: MORPHINE ER 30 MG TABLET PO SCH ×3 (03:10→18:38)
[2020-10-21] MEDS: SODIUM CHLORIDE 0.9% 1,000 ML IV SCH ×3 (03:12→23:21)
[2020-10-21] MEDS: LACTATED RINGERS 1,000 ML IV SCH (08:00)
[2020-10-21] MEDS: ONDANSETRON 4 MG/2 ML VIAL IV PRN ×2 (08:50→20:46)
[2020-10-21] MEDS: MULTIVITAMIN (CENTRUM) TABLET PO SCH (10:00)
[2020-10-21] MEDS: ASPIRIN EC 81 MG TABLET PO SCH (10:00)
[2020-10-21] MEDS: DOCUSATE SODIUM 100 MG CAPSULE PO SCH ×2 (10:00→20:46)
[2020-10-21] MEDS: DICYCLOMINE 10 MG CAPSULE PO SCH ×4 (10:00→20:46)
[2020-10-21] MEDS: FUROSEMIDE 40 MG TABLET PO SCH (10:01)
[2020-10-21] MEDS: carvediloL 25 MG TABLET PO SCH ×2 (10:01→20:45)
[2020-10-21] MEDS: LACTOBACILLUS RHAMNOSUS GG CAPSULE PO SCH (10:01)
[2020-10-21] MEDS: POTASSIUM CHLORIDE 20 MEQ TABLET PO SCH (10:01)
[2020-10-21] MEDS: COLESTIPOL 1 GM TABLET PO SCH ×2 (10:01→20:46)
[2020-10-21] MEDS: PANTOPRAZOLE 40 MG TABLET PO SCH (10:02)
[2020-10-21] MEDS: GABAPENTIN 600 MG TABLET PO SCH ×3 (10:02→20:46)
[2020-10-21] MEDS: HYOSCYAMINE 0.125 MG TABLET PO SCH ×2 (10:02→20:45)
[2020-10-21] MEDS: ATORVASTATIN 40 MG TABLET PO SCH (20:45)
[2020-10-21] MEDS: SERTRALINE 50 MG TABLET PO SCH (20:46)
[2020-10-22] MEDS: MORPHINE ER 30 MG TABLET PO SCH ×3 (03:12→18:37)
[2020-10-22] MEDS: ONDANSETRON 4 MG/2 ML VIAL IV PRN (06:24)
[2020-10-22] MEDS: ALPRAZolam 0.25 MG TABLET PO PRN ×2 (06:24→16:58)
[2020-10-22] MEDS ORDERED: COSYNTROPIN 0.25 MG VIAL IV ONE (07:57)
[2020-10-22] MEDS: LACTATED RINGERS 1,000 ML IV SCH (08:00)
[2020-10-22] MEDS: DICYCLOMINE 10 MG CAPSULE PO SCH ×4 (10:42→20:19)
[2020-10-22] MEDS: ASPIRIN EC 81 MG TABLET PO SCH (10:42)
[2020-10-22] MEDS: MULTIVITAMIN (CENTRUM) TABLET PO SCH (10:42)
[2020-10-22] MEDS: LACTOBACILLUS RHAMNOSUS GG CAPSULE PO SCH (10:43)
[2020-10-22] MEDS: POTASSIUM CHLORIDE 20 MEQ TABLET PO SCH (10:43)
[2020-10-22] MEDS: DOCUSATE SODIUM 100 MG CAPSULE PO SCH ×2 (10:43→20:20)
[2020-10-22] MEDS: COLESTIPOL 1 GM TABLET PO SCH ×2 (10:43→20:19)
[2020-10-22] MEDS: carvediloL 25 MG TABLET PO SCH ×2 (10:43→20:20)
[2020-10-22] MEDS: HYOSCYAMINE 0.125 MG TABLET PO SCH ×2 (10:44→20:19)
[2020-10-22] MEDS: PANTOPRAZOLE 40 MG TABLET PO SCH (10:44)
[2020-10-22] MEDS: GABAPENTIN 600 MG TABLET PO SCH ×3 (10:44→20:20)
[2020-10-22] MEDS: FUROSEMIDE 40 MG TABLET PO SCH (10:44)
[2020-10-22] MEDS: ATORVASTATIN 40 MG TABLET PO SCH (20:20)
[2020-10-22] MEDS: SERTRALINE 50 MG TABLET PO SCH (20:20)
[2020-10-22] MEDS: ALUM/MAG/SIMETH/LIDO VISC 1:1 30 ML BOTTLE PO PRN (23:08)
[2020-10-23] MEDS: MORPHINE ER 30 MG TABLET PO SCH ×3 (02:14→10:05)
[2020-10-23] MEDS: ALUM/MAG/SIMETH/LIDO VISC 1:1 30 ML BOTTLE PO PRN (03:34)
[2020-10-23] MEDS: ONDANSETRON 4 MG/2 ML VIAL IV PRN (03:39)
[2020-10-23] MEDS: LACTATED RINGERS 1,000 ML IV SCH (07:52)
[2020-10-23] MEDS: COLESTIPOL 1 GM TABLET PO SCH (09:17)
[2020-10-23] MEDS: GABAPENTIN 600 MG TABLET PO SCH (09:20)
[2020-10-23] MEDS: FUROSEMIDE 40 MG TABLET PO SCH (09:20)
[2020-10-23] MEDS: carvediloL 25 MG TABLET PO SCH (09:20)
[2020-10-23] MEDS: POTASSIUM CHLORIDE 20 MEQ TABLET PO SCH (09:20)
[2020-10-23] MEDS: MULTIVITAMIN (CENTRUM) TABLET PO SCH (09:20)
[2020-10-23] MEDS: DOCUSATE SODIUM 100 MG CAPSULE PO SCH (09:20)
[2020-10-23] MEDS: ALPRAZolam 0.25 MG TABLET PO PRN (09:20)
[2020-10-23] MEDS: LACTOBACILLUS RHAMNOSUS GG CAPSULE PO SCH (09:20)
[2020-10-23] MEDS: ASPIRIN EC 81 MG TABLET PO SCH (09:20)
[2020-10-23] MEDS: HYOSCYAMINE 0.125 MG TABLET PO SCH (09:20)
[2020-10-23] MEDS: DICYCLOMINE 10 MG CAPSULE PO SCH ×2 (09:20→12:59)
[2020-10-23] MEDS: PANTOPRAZOLE 40 MG TABLET PO SCH (09:21)
[2020-10-23 11:19] VITALS: BP 109/70
[2020-10-23 11:31] LABS: Collection duration of stool Random h; Total Weight of Stool 15 g
== END 2020-10-23 13:10 | disposition home health service (06) | DRG 392 ==
LOC: N.EDINP 11:45 → N.ED 11:45 → N.3E 16:19
PROVIDERS: ADMIT Family Medicine; ATTEND Family Medicine
PROC: COLONBX (2020-10-14 11:05)

== ENCOUNTER 2022-03-24 11:05 | Inpatient (IN) ==
[2022-03-24] MEDS ORDERED: SODIUM CHLORIDE 0.9% 1,000 ML IV STA (11:36)
[2022-03-24] MEDS ORDERED: HYDROmorphone 1 MG/1 ML SYRINGE IV STA ×2 (11:37→12:55)
[2022-03-24] MEDS ORDERED: ONDANSETRON 4 MG/2 ML VIAL IV STA (11:38)
[2022-03-24 11:46] LABS: Basophils % 0.1 % (0.0-0.8); Eosinophils % 0.4 % (0.00-10.9); Hematocrit 42.2 VOL% (35.7-47.0); Hemoglobin 14.8 GM/DL (12.0-16.0); Immature Granulocytes % 0.4 %; Immature Granulocytes Absolute 0.04 #; Lymphocytes # 1.8 10*3/uL (1.4-4.0); Mean Corpuscular HGB Conc 35.1 GM/DL (32-36); Mean Corpuscular Volume 88.7 FL (87-102); Mean Platelet Volume 10.1 FL (9.6-12.0); Monocytes # 0.4 10*3/uL (0.11-0.8); Monocytes % 3.5 % (1.7-12.7); Neutrophils % 79.6 % (38.7-73.9); Platelet Count 267 T/CUMM (130-400); Red Blood Count 4.76 MC/CUMM (3.8-5.5); Red Cell Distribution Width 12.6 % (9.3-17.3); White Blood Count 11.1 T/CUMM (4-12)
[2022-03-24 12:01] LABS: Albumin 3.9 G/DL (3.4-5.0); Bilirubin,Total 0.8 MG/DL (0.20-1.00); Calcium 9.6 MG/DL (8.5-10.1); Osmolality,Calculated 269.2 MOS/KG (273-304); Potassium 3.7 MMOL/L (3.5-5.1); Total Protein 7.5 G/DL (6.4-8.2)
[2022-03-24] MEDS ORDERED: NITROGLYCERIN SL 0.4 MG TABLET SL PRN (13:23)
[2022-03-24] MEDS ORDERED: FUROSEMIDE 40 MG TABLET PO PRN (13:23)
[2022-03-24] MEDS ORDERED: MAGNESIUM SULF RIDER 4 GM/100 ML PREMIX IV PRN (14:33)
[2022-03-24] MEDS ORDERED: MAGNESIUM SULF RIDER 2 GM/50 ML PREMIX IV PRN (14:33)
[2022-03-24] MEDS ORDERED: NALOXONE 0.4 MG/ML VIAL IV PRN (14:33)
[2022-03-24] MEDS: SODIUM CHLORIDE 0.9% 1,000 ML IV SCH ×2 (16:47→17:29)
[2022-03-24] MEDS ORDERED: ONDANSETRON 4 MG/2 ML VIAL IV PRN (17:07)
[2022-03-24] MEDS: GABAPENTIN 600 MG TABLET PO SCH ×2 (18:33→20:56)
[2022-03-24] MEDS: carvediloL 25 MG TABLET PO SCH (18:34)
[2022-03-24] MEDS: ATORVASTATIN 40 MG TABLET PO SCH (20:53)
[2022-03-24] MEDS: ACETAMINOPHEN 325 MG TABLET PO PRN (20:55)
[2022-03-24] MEDS: DOCUSATE SODIUM 100 MG CAPSULE PO SCH (20:56)
[2022-03-24] MEDS ORDERED: DOCUSATE SODIUM 100 MG CAPSULE PO SCH ×2 (21:00)
[2022-03-24] MEDS: ONDANSETRON 4 MG/2 ML VIAL IV PRN (21:02)
[2022-03-25] MEDS: SODIUM CHLORIDE 0.9% 1,000 ML IV SCH ×4 (01:20→17:23)
[2022-03-25] MEDS: ONDANSETRON 4 MG/2 ML VIAL IV PRN ×2 (04:33→10:19)
[2022-03-25] MEDS: ACETAMINOPHEN 325 MG TABLET PO PRN ×2 (04:33→21:52)
[2022-03-25 05:17] LABS: Basophils % 0.2 % (0.0-0.8); Eosinophils # 0.1 10*3/uL (0.0-0.87); Eosinophils % 1.6 % (0.00-10.9); Hematocrit 35.2 VOL% (35.7-47.0); Hemoglobin 11.8 GM/DL (12.0-16.0); Immature Granulocytes % 0.2 %; Immature Granulocytes Absolute 0.01 #; Lymphocytes # 1.7 10*3/uL (1.4-4.0); Lymphocytes % 27.4 % (21.3-54.2); Mean Corpuscular HGB Conc 33.5 GM/DL (32-36); Mean Corpuscular Volume 92.6 FL (87-102); Mean Platelet Volume 10.2 FL (9.6-12.0); Monocytes # 0.4 10*3/uL (0.11-0.8); Monocytes % 6.4 % (1.7-12.7); Neutrophils % 64.2 % (38.7-73.9); Platelet Count 172 T/CUMM (130-400); White Blood Count 6.3 T/CUMM (4-12)
[2022-03-25 05:33] LABS: Calcium 7.9 MG/DL (8.5-10.1); Osmolality,Calculated 278.4 MOS/KG (273-304); Potassium 3.5 MMOL/L (3.5-5.1)
[2022-03-25] MEDS: carvediloL 25 MG TABLET PO SCH ×2 (08:10→16:57)
[2022-03-25] MEDS: POTASSIUM CHLORIDE 20 MEQ TABLET PO SCH (08:10)
[2022-03-25] MEDS: MORPHINE ER 30 MG TABLET PO SCH (08:10)
[2022-03-25] MEDS: SERTRALINE 50 MG TABLET PO SCH (08:10)
[2022-03-25] MEDS: MULTIVITAMIN (CENTRUM) TABLET PO SCH (08:10)
[2022-03-25] MEDS: DOCUSATE SODIUM 100 MG CAPSULE PO SCH ×2 (08:10→21:53)
[2022-03-25] MEDS: ASPIRIN EC 81 MG TABLET PO SCH (08:11)
[2022-03-25] MEDS ORDERED: PANTOPRAZOLE 40 MG TABLET PO SCH ×2 (09:00)
[2022-03-25] MEDS: GABAPENTIN 600 MG TABLET PO SCH ×3 (09:21→21:53)
[2022-03-25] MEDS: PANTOPRAZOLE 40 MG VIAL IV SCH ×2 (11:22→21:53)
[2022-03-25 19:49] LABS: Bilirubin,Urine Negative (Negative); Blood, Urine Negative (Negative); Glucose,Urine (UA) Negative (Negative); Ketones,Urine Negative (Negative); Nitrite,Urine Negative (Negative); Protein,Urine Negative (Negative); Urine Appearance Clear (Clear); Urine Color Yellow (Yellow); Urine Specific Gravity <= 1.005 (1.001-1.035); Urine Urobilinogen 0.2 eU/dL (<2.0)
[2022-03-25 19:51] LABS: Bacteria,Urine Occasional /HPF (Few); Mucus,Urine Occasional /LPF (Occasional); RBC,Urine 1 /HPF (0-4); Squamous Epithelial Cell,Urine Occasional /HPF (0-10)
[2022-03-25] MEDS ORDERED: PANTOPRAZOLE 40 MG VIAL IV SCH (21:00)
[2022-03-25] MEDS: ATORVASTATIN 40 MG TABLET PO SCH (21:52)
[2022-03-26] MEDS: ONDANSETRON 4 MG/2 ML VIAL IV PRN ×2 (03:28→12:14)
[2022-03-26] MEDS: ACETAMINOPHEN 325 MG TABLET PO PRN ×2 (05:04→21:31)
[2022-03-26 05:56] LABS: Basophils % 0.4 % (0.0-0.8); Eosinophils # 0.2 10*3/uL (0.0-0.87); Eosinophils % 3.1 % (0.00-10.9); Hemoglobin 11.3 GM/DL (12.0-16.0); Immature Granulocytes % 0.4 %; Immature Granulocytes Absolute 0.02 #; Lymphocytes # 1.5 10*3/uL (1.4-4.0); Lymphocytes % 28.3 % (21.3-54.2); Mean Corpuscular HGB Conc 33.2 GM/DL (32-36); Mean Corpuscular Volume 93.9 FL (87-102); Monocytes # 0.3 10*3/uL (0.11-0.8); Monocytes % 6.1 % (1.7-12.7); Neutrophils % 61.7 % (38.7-73.9); Platelet Count 174 T/CUMM (130-400); Red Blood Count 3.62 MC/CUMM (3.8-5.5); Red Cell Distribution Width 13.1 % (9.3-17.3); White Blood Count 5.4 T/CUMM (4-12)
[2022-03-26 06:28] LABS: Albumin 2.9 G/DL (3.4-5.0); Bilirubin,Total 0.6 MG/DL (0.20-1.00); Calcium 8.4 MG/DL (8.5-10.1); Osmolality,Calculated 278.3 MOS/KG (273-304); Potassium 3.3 MMOL/L (3.5-5.1); Total Protein 5.9 G/DL (6.4-8.2)
[2022-03-26] MEDS: POTASSIUM CHLORIDE RIDER 10 MEQ/100 ML PREMIX IV PRN ×4 (07:06→16:16)
[2022-03-26] MEDS: GABAPENTIN 600 MG TABLET PO SCH ×3 (10:19→21:31)
[2022-03-26] MEDS: MULTIVITAMIN (CENTRUM) TABLET PO SCH (10:19)
[2022-03-26] MEDS: ASPIRIN EC 81 MG TABLET PO SCH (10:19)
[2022-03-26] MEDS: SERTRALINE 50 MG TABLET PO SCH (10:19)
[2022-03-26] MEDS: POTASSIUM CHLORIDE 20 MEQ TABLET PO SCH (10:19)
[2022-03-26] MEDS: PANTOPRAZOLE 40 MG VIAL IV SCH ×2 (10:19→21:31)
[2022-03-26] MEDS: MORPHINE ER 30 MG TABLET PO SCH (10:19)
[2022-03-26] MEDS: carvediloL 25 MG TABLET PO SCH ×2 (10:19→16:16)
[2022-03-26] MEDS: DOCUSATE SODIUM 100 MG CAPSULE PO SCH ×2 (10:19→21:32)
[2022-03-26] MEDS: SODIUM CHLORIDE 0.9% 1,000 ML IV SCH (16:15)
[2022-03-26] MEDS: traZODone 50 MG TABLET PO SCH (21:31)
[2022-03-26] MEDS: ATORVASTATIN 40 MG TABLET PO SCH (21:31)
[2022-03-26] MEDS: MELATONIN 3 MG TABLET PO PRN (21:32)
[2022-03-27] MEDS: ONDANSETRON 4 MG/2 ML VIAL IV PRN (03:40)
[2022-03-27] MEDS: PANTOPRAZOLE 40 MG VIAL IV SCH ×2 (09:50→21:40)
[2022-03-27] MEDS: POTASSIUM CHLORIDE 20 MEQ TABLET PO SCH (09:50)
[2022-03-27] MEDS: MORPHINE ER 30 MG TABLET PO SCH (09:50)
[2022-03-27] MEDS: SERTRALINE 50 MG TABLET PO SCH (09:50)
[2022-03-27] MEDS: ASPIRIN EC 81 MG TABLET PO SCH (09:50)
[2022-03-27] MEDS: MULTIVITAMIN (CENTRUM) TABLET PO SCH (09:50)
[2022-03-27] MEDS: carvediloL 25 MG TABLET PO SCH ×2 (09:50→17:05)
[2022-03-27] MEDS: DOCUSATE SODIUM 100 MG CAPSULE PO SCH (09:50)
[2022-03-27] MEDS: GABAPENTIN 600 MG TABLET PO SCH ×3 (09:50→21:39)
[2022-03-27] MEDS: VANCOMYCIN 125 MG CAPSULE PO SCH ×2 (14:17→21:39)
[2022-03-27] MEDS: traZODone 50 MG TABLET PO SCH (21:39)
[2022-03-27] MEDS: MELATONIN 3 MG TABLET PO PRN (21:39)
[2022-03-27] MEDS: ATORVASTATIN 40 MG TABLET PO SCH (21:39)
[2022-03-28] MEDS: VANCOMYCIN 125 MG CAPSULE PO SCH ×4 (02:49→21:14)
[2022-03-28] MEDS: PANTOPRAZOLE 40 MG VIAL IV SCH ×2 (09:01→21:12)
[2022-03-28] MEDS: MULTIVITAMIN (CENTRUM) TABLET PO SCH (09:01)
[2022-03-28] MEDS: MORPHINE ER 30 MG TABLET PO SCH (09:01)
[2022-03-28] MEDS: POTASSIUM CHLORIDE 20 MEQ TABLET PO SCH (09:01)
[2022-03-28] MEDS: GABAPENTIN 600 MG TABLET PO SCH ×3 (09:02→21:13)
[2022-03-28] MEDS: ASPIRIN EC 81 MG TABLET PO SCH (09:02)
[2022-03-28] MEDS: SERTRALINE 50 MG TABLET PO SCH (09:02)
[2022-03-28] MEDS: carvediloL 25 MG TABLET PO SCH ×2 (09:02→16:40)
[2022-03-28] MEDS: SODIUM CHLORIDE 0.9% 1,000 ML IV SCH (12:08)
[2022-03-28] MEDS ORDERED: HYDROCORTISONE 2.5% RECTAL CREAM 30 GM TUBE TOP PRN (17:20)
[2022-03-28] MEDS: traZODone 50 MG TABLET PO SCH (21:12)
[2022-03-28] MEDS: MELATONIN 3 MG TABLET PO PRN (21:13)
[2022-03-28] MEDS: ATORVASTATIN 40 MG TABLET PO SCH (21:14)
[2022-03-28 23:21] LABS: H pylori Specimen source STOOL; Helicobacter pylori Result Not Detected
[2022-03-29] MEDS: ACETAMINOPHEN 325 MG TABLET PO PRN ×3 (01:31→18:20)
[2022-03-29] MEDS: ONDANSETRON 4 MG/2 ML VIAL IV PRN ×2 (01:33→18:06)
[2022-03-29] MEDS: VANCOMYCIN 125 MG CAPSULE PO SCH ×4 (02:50→21:00)
[2022-03-29 06:14] LABS: Basophils % 0.2 % (0.0-0.8); Eosinophils # 0.3 10*3/uL (0.0-0.87); Hematocrit 34.4 VOL% (35.7-47.0); Hemoglobin 11.3 GM/DL (12.0-16.0); Immature Granulocytes % 0.2 %; Immature Granulocytes Absolute 0.01 #; Lymphocytes # 1.5 10*3/uL (1.4-4.0); Mean Corpuscular HGB Conc 32.8 GM/DL (32-36); Mean Corpuscular Volume 93.7 FL (87-102); Mean Platelet Volume 10.5 FL (9.6-12.0); Monocytes # 0.4 10*3/uL (0.11-0.8); Monocytes % 5.6 % (1.7-12.7); Platelet Count 165 T/CUMM (130-400); Red Blood Count 3.67 MC/CUMM (3.8-5.5); White Blood Count 6.6 T/CUMM (4-12)
[2022-03-29 06:36] LABS: Albumin 3.1 G/DL (3.4-5.0); Bilirubin,Total 0.4 MG/DL (0.20-1.00); Calcium 8.8 MG/DL (8.5-10.1); Osmolality,Calculated 274.7 MOS/KG (273-304); Potassium 3.8 MMOL/L (3.5-5.1); Total Protein 6.4 G/DL (6.4-8.2)
[2022-03-29] MEDS: POTASSIUM CHLORIDE 20 MEQ TABLET PO SCH (08:08)
[2022-03-29] MEDS: ASPIRIN EC 81 MG TABLET PO SCH (08:08)
[2022-03-29] MEDS: PANTOPRAZOLE 40 MG VIAL IV SCH ×2 (08:08→21:01)
[2022-03-29] MEDS: GABAPENTIN 600 MG TABLET PO SCH ×3 (08:08→21:00)
[2022-03-29] MEDS: carvediloL 25 MG TABLET PO SCH ×2 (08:08→17:06)
[2022-03-29] MEDS: SERTRALINE 50 MG TABLET PO SCH (08:08)
[2022-03-29] MEDS: MULTIVITAMIN (CENTRUM) TABLET PO SCH (08:08)
[2022-03-29] MEDS: MORPHINE ER 30 MG TABLET PO SCH (08:09)
[2022-03-29] MEDS: SODIUM CHLORIDE 0.9% 1,000 ML IV SCH ×2 (09:06→15:52)
[2022-03-29] MEDS: traZODone 50 MG TABLET PO SCH (21:00)
[2022-03-29] MEDS: MELATONIN 3 MG TABLET PO PRN (21:00)
[2022-03-29] MEDS: ATORVASTATIN 40 MG TABLET PO SCH (21:00)
[2022-03-30] MEDS: ACETAMINOPHEN 325 MG TABLET PO PRN (01:51)
[2022-03-30] MEDS: VANCOMYCIN 125 MG CAPSULE PO SCH ×2 (02:02→09:38)
[2022-03-30] MEDS: PANTOPRAZOLE 40 MG VIAL IV SCH (08:29)
[2022-03-30] MEDS: carvediloL 25 MG TABLET PO SCH (09:38)
[2022-03-30] MEDS: MORPHINE ER 30 MG TABLET PO SCH (09:40)
[2022-03-30] MEDS: ASPIRIN EC 81 MG TABLET PO SCH (09:43)
[2022-03-30] MEDS: GABAPENTIN 600 MG TABLET PO SCH (09:44)
[2022-03-30] MEDS: POTASSIUM CHLORIDE 20 MEQ TABLET PO SCH (09:49)
[2022-03-30] MEDS: MULTIVITAMIN (CENTRUM) TABLET PO SCH (09:49)
[2022-03-30] MEDS: SERTRALINE 50 MG TABLET PO SCH (09:50)
[2022-03-30] MEDS: SODIUM CHLORIDE 0.9% 1,000 ML IV SCH (12:20)
[2022-03-30 12:23] VITALS: BP 158/77
== END 2022-03-30 13:00 | disposition home health service (06) | DRG 372 ==
LOC: N.EDINP 11:05 → N.ED 11:05 → N.5E 17:08
PROVIDERS: ADMIT Family Medicine; ATTEND Family Medicine

== ENCOUNTER 2022-04-15 13:57 | Inpatient (IN) ==
[2022-04-15] MEDS ORDERED: SODIUM CHLORIDE 0.9% 1,000 ML IV STA (16:14)
[2022-04-15] MEDS ORDERED: ONDANSETRON 4 MG/2 ML VIAL IV STA (16:14)
[2022-04-15 16:39] LABS: Basophils % 0.1 % (0.0-0.8); Eosinophils # 0.1 10*3/uL (0.0-0.87); Eosinophils % 1.6 % (0.00-10.9); Hematocrit 40.1 VOL% (35.7-47.0); Hemoglobin 13.6 GM/DL (12.0-16.0); Immature Granulocytes % 0.4 %; Immature Granulocytes Absolute 0.03 #; Lymphocytes # 1.7 10*3/uL (1.4-4.0); Lymphocytes % 22.5 % (21.3-54.2); Mean Corpuscular HGB Conc 33.9 GM/DL (32-36); Monocytes # 0.5 10*3/uL (0.11-0.8); Monocytes % 6.3 % (1.7-12.7); Neutrophils % 69.1 % (38.7-73.9); Platelet Count 242 T/CUMM (130-400); Red Blood Count 4.36 MC/CUMM (3.8-5.5); Red Cell Distribution Width 12.9 % (9.3-17.3); White Blood Count 7.4 T/CUMM (4-12)
[2022-04-15 17:02] LABS: Albumin 3.3 G/DL (3.4-5.0); Bilirubin,Total 0.5 MG/DL (0.20-1.00); Calcium 9.7 MG/DL (8.5-10.1); Osmolality,Calculated 267.2 MOS/KG (273-304); Potassium 4.2 MMOL/L (3.5-5.1); Total Protein 8.3 G/DL (6.4-8.2)
[2022-04-15] MEDS ORDERED: hydrALAZINE 20 MG/1 ML VIAL IV STA (17:03)
[2022-04-15] MEDS ORDERED: MORPHINE 2 MG/1 ML SYRINGE IV STA (17:25)
[2022-04-15] MEDS ORDERED: MORPHINE 2 MG/1 ML SYRINGE ONE (17:26)
[2022-04-15] MEDS ORDERED: NITROGLYCERIN SL 0.4 MG TABLET SL PRN (18:02)
[2022-04-15] MEDS: MORPHINE ER 15 MG TABLET PO PRN (19:13)
[2022-04-15] MEDS: PROMETHAZINE 25 MG TABLET PO PRN (19:24)
[2022-04-15] MEDS: ONDANSETRON 4 MG/2 ML VIAL IV PRN (21:45)
[2022-04-15] MEDS: MELATONIN 3 MG TABLET PO SCH (22:13)
[2022-04-15] MEDS: SODIUM CHLORIDE 0.9% 1,000 ML IV SCH (22:13)
[2022-04-15] MEDS: DOCUSATE SODIUM 100 MG CAPSULE PO SCH (22:13)
[2022-04-15] MEDS: ATORVASTATIN 40 MG TABLET PO SCH (22:13)
[2022-04-15] MEDS: traZODone 50 MG TABLET PO SCH (22:13)
[2022-04-15] MEDS: carvediloL 25 MG TABLET PO SCH (22:13)
[2022-04-15] MEDS: GABAPENTIN 300 MG CAPSULE PO SCH (22:14)
[2022-04-16] MEDS: ACETAMINOPHEN 325 MG TABLET PO PRN ×2 (01:24→12:55)
[2022-04-16 05:18] LABS: Eosinophils % 0.3 % (0.00-10.9); Hematocrit 32.7 VOL% (35.7-47.0); Hemoglobin 10.7 GM/DL (12.0-16.0); Immature Granulocytes % 0.2 %; Immature Granulocytes Absolute 0.01 #; Lymphocytes # 1.4 10*3/uL (1.4-4.0); Lymphocytes % 22.8 % (21.3-54.2); Mean Corpuscular HGB Conc 32.7 GM/DL (32-36); Mean Platelet Volume 9.9 FL (9.6-12.0); Monocytes # 0.3 10*3/uL (0.11-0.8); Monocytes % 4.8 % (1.7-12.7); Neutrophils % 71.9 % (38.7-73.9); Platelet Count 197 T/CUMM (130-400); Red Blood Count 3.48 MC/CUMM (3.8-5.5); Red Cell Distribution Width 13.1 % (9.3-17.3); White Blood Count 6.2 T/CUMM (4-12)
[2022-04-16 05:35] LABS: Albumin 2.5 G/DL (3.4-5.0); Bilirubin,Total 0.4 MG/DL (0.20-1.00); Calcium 8.2 MG/DL (8.5-10.1); Osmolality,Calculated 276.7 MOS/KG (273-304); Potassium 4.1 MMOL/L (3.5-5.1); Total Protein 6.1 G/DL (6.4-8.2)
[2022-04-16] MEDS: SODIUM CHLORIDE 0.9% 1,000 ML IV SCH ×4 (05:39→17:11)
[2022-04-16] MEDS: MORPHINE ER 15 MG TABLET PO PRN ×2 (07:10→18:11)
[2022-04-16] MEDS: ASPIRIN EC 81 MG TABLET PO SCH (08:20)
[2022-04-16] MEDS: carvediloL 25 MG TABLET PO SCH ×2 (08:21→21:14)
[2022-04-16] MEDS: GABAPENTIN 300 MG CAPSULE PO SCH ×3 (08:21→21:14)
[2022-04-16] MEDS: lisinopriL 20 MG TABLET PO SCH (08:21)
[2022-04-16] MEDS: DOCUSATE SODIUM 100 MG CAPSULE PO SCH ×2 (08:21→21:18)
[2022-04-16] MEDS: MULTIVITAMIN (CENTRUM) TABLET PO SCH (08:21)
[2022-04-16] MEDS: PANTOPRAZOLE 40 MG TABLET PO SCH (08:22)
[2022-04-16] MEDS: SERTRALINE 25 MG TABLET PO SCH (08:24)
[2022-04-16] MEDS ORDERED: PANTOPRAZOLE 40 MG TABLET PO SCH (09:00)
[2022-04-16] MEDS ORDERED: ALUM/MAG/SIMETH/LIDO VISC 1:1 30 ML BOTTLE PO ONE (13:04)
[2022-04-16] MEDS: ATORVASTATIN 40 MG TABLET PO SCH (21:14)
[2022-04-16] MEDS: traZODone 50 MG TABLET PO SCH (21:14)
[2022-04-16] MEDS: MELATONIN 3 MG TABLET PO SCH (21:15)
[2022-04-17] MEDS: ACETAMINOPHEN 325 MG TABLET PO PRN ×2 (04:38→14:11)
[2022-04-17] MEDS: SODIUM CHLORIDE 0.9% 1,000 ML IV SCH ×3 (05:55→21:14)
[2022-04-17] MEDS: MORPHINE ER 15 MG TABLET PO PRN ×2 (06:14→18:19)
[2022-04-17 06:25] LABS: Basophils % 0.2 % (0.0-0.8); Eosinophils # 0.2 10*3/uL (0.0-0.87); Eosinophils % 3.1 % (0.00-10.9); Hematocrit 30.5 VOL% (35.7-47.0); Hemoglobin 10.1 GM/DL (12.0-16.0); Immature Granulocytes % 0.4 %; Immature Granulocytes Absolute 0.02 #; Lymphocytes # 1.4 10*3/uL (1.4-4.0); Lymphocytes % 29.5 % (21.3-54.2); Mean Corpuscular HGB Conc 33.1 GM/DL (32-36); Mean Corpuscular Volume 93.3 FL (87-102); Mean Platelet Volume 10.3 FL (9.6-12.0); Monocytes # 0.3 10*3/uL (0.11-0.8); Monocytes % 6.4 % (1.7-12.7); Neutrophils % 60.4 % (38.7-73.9); Platelet Count 167 T/CUMM (130-400); Red Blood Count 3.27 MC/CUMM (3.8-5.5); Red Cell Distribution Width 13.2 % (9.3-17.3); White Blood Count 4.8 T/CUMM (4-12)
[2022-04-17] MEDS: carvediloL 25 MG TABLET PO SCH ×2 (09:52→20:37)
[2022-04-17] MEDS: VANCOMYCIN 125 MG CAPSULE PO SCH ×3 (09:52→20:37)
[2022-04-17] MEDS: SERTRALINE 25 MG TABLET PO SCH (09:52)
[2022-04-17] MEDS: CYANOCOBALAMIN 500 MCG TABLET PO SCH (09:52)
[2022-04-17] MEDS: MAGNESIUM OXIDE 400 MG TABLET PO SCH (09:52)
[2022-04-17] MEDS: ASPIRIN EC 81 MG TABLET PO SCH (09:52)
[2022-04-17] MEDS: MULTIVITAMIN (CENTRUM) TABLET PO SCH (09:52)
[2022-04-17] MEDS: GABAPENTIN 300 MG CAPSULE PO SCH ×3 (09:52→20:38)
[2022-04-17] MEDS: lisinopriL 20 MG TABLET PO SCH (09:52)
[2022-04-17] MEDS: ONDANSETRON 4 MG/2 ML VIAL IV PRN (09:54)
[2022-04-17] MEDS: DOCUSATE SODIUM 100 MG CAPSULE PO SCH ×2 (10:06→20:51)
[2022-04-17] MEDS: PANTOPRAZOLE 40 MG TABLET PO SCH (10:07)
[2022-04-17] MEDS ORDERED: ALBUTEROL 2.5 MG/3 ML NEB RESP TX PRN (14:20)
[2022-04-17] MEDS ORDERED: HYDROCORTISONE 2.5% RECTAL CREAM 30 GM TUBE TOP PRN (14:20)
[2022-04-17] MEDS: MELATONIN 3 MG TABLET PO SCH (20:38)
[2022-04-17] MEDS: ATORVASTATIN 40 MG TABLET PO SCH (20:38)
[2022-04-17] MEDS: traZODone 50 MG TABLET PO SCH (20:38)
[2022-04-18] MEDS: ACETAMINOPHEN 325 MG TABLET PO PRN (02:58)
[2022-04-18] MEDS: VANCOMYCIN 125 MG CAPSULE PO SCH ×4 (02:58→20:41)
[2022-04-18] MEDS: SODIUM CHLORIDE 0.9% 1,000 ML IV SCH ×3 (05:35→15:56)
[2022-04-18 05:40] LABS: Eosinophils # 0.2 10*3/uL (0.0-0.87); Eosinophils % 3.5 % (0.00-10.9); Hematocrit 29.2 VOL% (35.7-47.0); Hemoglobin 9.6 GM/DL (12.0-16.0); Immature Granulocytes % 0.4 %; Immature Granulocytes Absolute 0.02 #; Lymphocytes # 1.1 10*3/uL (1.4-4.0); Lymphocytes % 18.9 % (21.3-54.2); Mean Corpuscular HGB Conc 32.9 GM/DL (32-36); Mean Corpuscular Volume 93.6 FL (87-102); Monocytes # 0.3 10*3/uL (0.11-0.8); Monocytes % 5.1 % (1.7-12.7); Neutrophils % 72.1 % (38.7-73.9); Platelet Count 171 T/CUMM (130-400); Red Blood Count 3.12 MC/CUMM (3.8-5.5); Red Cell Distribution Width 12.9 % (9.3-17.3); White Blood Count 5.7 T/CUMM (4-12)
[2022-04-18] MEDS: ONDANSETRON 4 MG/2 ML VIAL IV PRN (06:16)
[2022-04-18] MEDS: MORPHINE ER 15 MG TABLET PO PRN ×2 (06:17→17:55)
[2022-04-18] MEDS: MULTIVITAMIN (CENTRUM) TABLET PO SCH (08:27)
[2022-04-18] MEDS: SERTRALINE 25 MG TABLET PO SCH (08:28)
[2022-04-18] MEDS: carvediloL 25 MG TABLET PO SCH ×2 (08:28→20:42)
[2022-04-18] MEDS: lisinopriL 20 MG TABLET PO SCH (08:28)
[2022-04-18] MEDS: DOCUSATE SODIUM 100 MG CAPSULE PO SCH ×2 (08:28→20:42)
[2022-04-18] MEDS: PANTOPRAZOLE 40 MG TABLET PO SCH (08:28)
[2022-04-18] MEDS: ASPIRIN EC 81 MG TABLET PO SCH (08:28)
[2022-04-18] MEDS: GABAPENTIN 300 MG CAPSULE PO SCH ×3 (08:28→20:42)
[2022-04-18] MEDS: guaiFENesin 200 MG/10 ML UDCUP PO PRN ×2 (10:48→17:55)
[2022-04-18 11:35] LABS: Albumin 2.8 G/DL (3.4-5.0); Bilirubin,Total 0.5 MG/DL (0.20-1.00); Calcium 8.2 MG/DL (8.5-10.1); Potassium 3.1 MMOL/L (3.5-5.1); Total Protein 6.3 G/DL (6.4-8.2)
[2022-04-18] MEDS: POTASSIUM CHLORIDE 20 MEQ TABLET PO PRN ×4 (11:52→17:56)
[2022-04-18] MEDS: BENZONATATE 100 MG CAPSULE PO PRN ×2 (13:06→20:44)
[2022-04-18] MEDS: cefTRIAXone 1,000 MG in SODIUM CHLORIDE 0.9% 100 ML IV SCH (15:46)
[2022-04-18] MEDS: MELATONIN 3 MG TABLET PO SCH (20:42)
[2022-04-18] MEDS: traZODone 50 MG TABLET PO SCH (20:42)
[2022-04-18] MEDS: ATORVASTATIN 40 MG TABLET PO SCH (20:42)
[2022-04-19] MEDS: VANCOMYCIN 125 MG CAPSULE PO SCH ×5 (01:12→21:05)
[2022-04-19 05:13] LABS: Basophils % 0.3 % (0.0-0.8); Eosinophils # 0.2 10*3/uL (0.0-0.87); Hematocrit 31.3 VOL% (35.7-47.0); Hemoglobin 10.4 GM/DL (12.0-16.0); Immature Granulocytes % 0.6 %; Immature Granulocytes Absolute 0.04 #; Lymphocytes # 1.2 10*3/uL (1.4-4.0); Lymphocytes % 17.4 % (21.3-54.2); Mean Corpuscular HGB Conc 33.2 GM/DL (32-36); Mean Corpuscular Volume 93.4 FL (87-102); Mean Platelet Volume 9.7 FL (9.6-12.0); Monocytes # 0.4 10*3/uL (0.11-0.8); Neutrophils % 73.7 % (38.7-73.9); Platelet Count 224 T/CUMM (130-400); Red Blood Count 3.35 MC/CUMM (3.8-5.5); Red Cell Distribution Width 13.1 % (9.3-17.3)
[2022-04-19 05:39] LABS: Alanine Aminotransferase 17 U/L (13-56); Albumin 2.5 G/DL (3.4-5.0); Alkaline Phosphatase 92 U/L (45-117); Aspartate Amino Transferase 14 U/L (0-37); Bilirubin,Total < 0.39 MG/DL (0.20-1.00); Blood Urea Nitrogen 6 MG/DL (7-18); Calcium 8.1 MG/DL (8.5-10.1); Carbon Dioxide 27 MMOL/L (21-32); Chloride 110 MMOL/L (98-107); Glucose 109 MG/DL (74-106); Osmolality,Calculated 279.3 MOS/KG (273-304); Potassium 3.9 MMOL/L (3.5-5.1); Sodium 141 MMOL/L (136-145); Total Protein 5.8 G/DL (6.4-8.2)
[2022-04-19] MEDS: MORPHINE ER 15 MG TABLET PO PRN ×2 (06:15→18:05)
[2022-04-19] MEDS: SERTRALINE 25 MG TABLET PO SCH (08:12)
[2022-04-19] MEDS: MULTIVITAMIN (CENTRUM) TABLET PO SCH (08:12)
[2022-04-19] MEDS: ASPIRIN EC 81 MG TABLET PO SCH (08:13)
[2022-04-19] MEDS: CYANOCOBALAMIN 500 MCG TABLET PO SCH (08:13)
[2022-04-19] MEDS: PANTOPRAZOLE 40 MG TABLET PO SCH (08:15)
[2022-04-19] MEDS: GABAPENTIN 300 MG CAPSULE PO SCH ×3 (08:15→21:05)
[2022-04-19] MEDS: carvediloL 25 MG TABLET PO SCH ×2 (08:16→21:05)
[2022-04-19] MEDS: lisinopriL 20 MG TABLET PO SCH (08:16)
[2022-04-19] MEDS: ONDANSETRON 4 MG/2 ML VIAL IV PRN (08:17)
[2022-04-19] MEDS: cefTRIAXone 1,000 MG in SODIUM CHLORIDE 0.9% 100 ML IV SCH (08:30)
[2022-04-19] MEDS: BENZONATATE 100 MG CAPSULE PO PRN ×2 (08:31→21:07)
[2022-04-19] MEDS: MAGNESIUM OXIDE 400 MG TABLET PO SCH (08:31)
[2022-04-19] MEDS: DOCUSATE SODIUM 100 MG CAPSULE PO SCH ×2 (10:16→21:05)
[2022-04-19] MEDS: SODIUM CHLORIDE 0.9% 1,000 ML IV SCH ×2 (11:38→21:06)
[2022-04-19] MEDS: ACETAMINOPHEN 325 MG TABLET PO PRN (11:49)
[2022-04-19] MEDS: PROMETHAZINE 25 MG TABLET PO PRN (14:23)
[2022-04-19] MEDS: LIDOCAINE 5% PATCH TRANSDERM SCH (14:23)
[2022-04-19] MEDS: ATORVASTATIN 40 MG TABLET PO SCH (21:05)
[2022-04-19] MEDS: traZODone 50 MG TABLET PO SCH (21:05)
[2022-04-19] MEDS: MELATONIN 3 MG TABLET PO SCH (21:05)
[2022-04-20] MEDS: PROMETHAZINE 25 MG TABLET PO PRN ×3 (01:30→15:34)
[2022-04-20] MEDS: VANCOMYCIN 125 MG CAPSULE PO SCH ×4 (03:01→21:23)
[2022-04-20] MEDS: MORPHINE ER 15 MG TABLET PO PRN ×2 (06:28→18:30)
[2022-04-20] MEDS: cefTRIAXone 1,000 MG in SODIUM CHLORIDE 0.9% 100 ML IV SCH (08:29)
[2022-04-20] MEDS: ASPIRIN EC 81 MG TABLET PO SCH (08:29)
[2022-04-20] MEDS: SERTRALINE 25 MG TABLET PO SCH (08:30)
[2022-04-20] MEDS: GABAPENTIN 300 MG CAPSULE PO SCH ×3 (08:30→21:23)
[2022-04-20] MEDS: MULTIVITAMIN (CENTRUM) TABLET PO SCH (08:30)
[2022-04-20] MEDS: lisinopriL 20 MG TABLET PO SCH (08:31)
[2022-04-20] MEDS: PANTOPRAZOLE 40 MG TABLET PO SCH (08:31)
[2022-04-20] MEDS: carvediloL 25 MG TABLET PO SCH ×2 (08:31→21:23)
[2022-04-20] MEDS: BENZONATATE 100 MG CAPSULE PO PRN ×2 (08:32→21:23)
[2022-04-20] MEDS: LIDOCAINE 5% PATCH TRANSDERM SCH (08:37)
[2022-04-20] MEDS: DOCUSATE SODIUM 100 MG CAPSULE PO SCH ×2 (08:37→21:23)
[2022-04-20] MEDS: SODIUM CHLORIDE 0.9% 1,000 ML IV SCH (11:03)
[2022-04-20] MEDS: ACETAMINOPHEN 325 MG TABLET PO PRN (15:35)
[2022-04-20] MEDS: traZODone 50 MG TABLET PO SCH (21:23)
[2022-04-20] MEDS: MELATONIN 3 MG TABLET PO SCH (21:23)
[2022-04-20] MEDS: ATORVASTATIN 40 MG TABLET PO SCH (21:23)
[2022-04-21] MEDS: VANCOMYCIN 125 MG CAPSULE PO SCH ×4 (04:03→20:45)
[2022-04-21] MEDS: MORPHINE ER 15 MG TABLET PO PRN ×2 (06:04→18:08)
[2022-04-21] MEDS: LIDOCAINE 5% PATCH TRANSDERM SCH (08:13)
[2022-04-21] MEDS: cefTRIAXone 1,000 MG in SODIUM CHLORIDE 0.9% 100 ML IV SCH (08:15)
[2022-04-21] MEDS: CYANOCOBALAMIN 500 MCG TABLET PO SCH (08:19)
[2022-04-21] MEDS: ASPIRIN EC 81 MG TABLET PO SCH (08:19)
[2022-04-21] MEDS: GABAPENTIN 300 MG CAPSULE PO SCH ×3 (08:20→20:45)
[2022-04-21] MEDS: DOCUSATE SODIUM 100 MG CAPSULE PO SCH ×2 (08:20→20:49)
[2022-04-21] MEDS: BENZONATATE 100 MG CAPSULE PO PRN ×2 (08:20→21:24)
[2022-04-21] MEDS: MAGNESIUM OXIDE 400 MG TABLET PO SCH (08:21)
[2022-04-21] MEDS: carvediloL 25 MG TABLET PO SCH ×2 (08:21→20:45)
[2022-04-21] MEDS: lisinopriL 20 MG TABLET PO SCH (08:21)
[2022-04-21] MEDS: PANTOPRAZOLE 40 MG TABLET PO SCH (08:21)
[2022-04-21] MEDS: SERTRALINE 25 MG TABLET PO SCH (08:22)
[2022-04-21] MEDS: MULTIVITAMIN (CENTRUM) TABLET PO SCH (08:23)
[2022-04-21] MEDS: ACETAMINOPHEN 325 MG TABLET PO PRN ×2 (08:23→16:11)
[2022-04-21] MEDS: PROMETHAZINE 25 MG TABLET PO PRN ×2 (09:44→16:11)
[2022-04-21 09:50] LABS: Basophils % 0.2 % (0.0-0.8); Eosinophils # 0.2 10*3/uL (0.0-0.87); Eosinophils % 1.9 % (0.00-10.9); Hematocrit 37.1 VOL% (35.7-47.0); Hemoglobin 12.3 GM/DL (12.0-16.0); Immature Granulocytes % 0.8 %; Immature Granulocytes Absolute 0.09 #; Lymphocytes % 17.1 % (21.3-54.2); Mean Corpuscular HGB Conc 33.2 GM/DL (32-36); Mean Corpuscular Volume 93.9 FL (87-102); Mean Platelet Volume 10.1 FL (9.6-12.0); Monocytes # 0.6 10*3/uL (0.11-0.8); Monocytes % 4.8 % (1.7-12.7); Neutrophils % 75.2 % (38.7-73.9); Platelet Count 384 T/CUMM (130-400); Red Blood Count 3.95 MC/CUMM (3.8-5.5); Red Cell Distribution Width 13.7 % (9.3-17.3); White Blood Count 11.9 T/CUMM (4-12)
[2022-04-21 10:31] LABS: Albumin 3.4 G/DL (3.4-5.0); Bilirubin,Total 0.4 MG/DL (0.20-1.00); Calcium 9.2 MG/DL (8.5-10.1); Osmolality,Calculated 274.5 MOS/KG (273-304); Potassium 3.2 MMOL/L (3.5-5.1); Total Protein 7.9 G/DL (6.4-8.2)
[2022-04-21] MEDS: POTASSIUM CHLORIDE 20 MEQ TABLET PO PRN ×4 (11:20→17:20)
[2022-04-21] MEDS: traZODone 50 MG TABLET PO SCH (20:45)
[2022-04-21] MEDS: ATORVASTATIN 40 MG TABLET PO SCH (20:45)
[2022-04-21] MEDS: MELATONIN 3 MG TABLET PO SCH (20:45)
[2022-04-22] MEDS: VANCOMYCIN 125 MG CAPSULE PO SCH ×4 (02:42→21:11)
[2022-04-22] MEDS: PROMETHAZINE 25 MG TABLET PO PRN ×3 (04:49→17:04)
[2022-04-22 05:01] LABS: Basophils % 0.1 % (0.0-0.8); Eosinophils # 0.3 10*3/uL (0.0-0.87); Eosinophils % 3.4 % (0.00-10.9); Hematocrit 29.8 VOL% (35.7-47.0); Hemoglobin 9.9 GM/DL (12.0-16.0); Immature Granulocytes % 0.4 %; Immature Granulocytes Absolute 0.03 #; Lymphocytes # 1.7 10*3/uL (1.4-4.0); Lymphocytes % 21.9 % (21.3-54.2); Mean Corpuscular HGB Conc 33.2 GM/DL (32-36); Mean Corpuscular Volume 93.1 FL (87-102); Mean Platelet Volume 9.9 FL (9.6-12.0); Monocytes # 0.4 10*3/uL (0.11-0.8); Monocytes % 5.4 % (1.7-12.7); Neutrophils % 68.8 % (38.7-73.9); Platelet Count 240 T/CUMM (130-400); Red Cell Distribution Width 13.8 % (9.3-17.3); White Blood Count 7.9 T/CUMM (4-12)
[2022-04-22 05:37] LABS: Alanine Aminotransferase 16 U/L (13-56); Albumin 2.5 G/DL (3.4-5.0); Alkaline Phosphatase 103 U/L (45-117); Aspartate Amino Transferase 13 U/L (0-37); Bilirubin,Total < 0.39 MG/DL (0.20-1.00); Blood Urea Nitrogen 8 MG/DL (7-18); Calcium 8.5 MG/DL (8.5-10.1); Carbon Dioxide 27 MMOL/L (21-32); Chloride 107 MMOL/L (98-107); Glucose 111 MG/DL (74-106); Osmolality,Calculated 277.4 MOS/KG (273-304); Potassium 3.8 MMOL/L (3.5-5.1); Sodium 140 MMOL/L (136-145); Total Protein 6.2 G/DL (6.4-8.2)
[2022-04-22] MEDS: MORPHINE ER 15 MG TABLET PO PRN ×2 (06:20→18:27)
[2022-04-22] MEDS: lisinopriL 20 MG TABLET PO SCH (09:24)
[2022-04-22] MEDS: MULTIVITAMIN (CENTRUM) TABLET PO SCH (09:25)
[2022-04-22] MEDS: PANTOPRAZOLE 40 MG TABLET PO SCH (09:25)
[2022-04-22] MEDS: SERTRALINE 25 MG TABLET PO SCH (09:25)
[2022-04-22] MEDS: GABAPENTIN 300 MG CAPSULE PO SCH ×3 (09:26→21:12)
[2022-04-22] MEDS: ASPIRIN EC 81 MG TABLET PO SCH (09:27)
[2022-04-22] MEDS: DOCUSATE SODIUM 100 MG CAPSULE PO SCH ×2 (09:28→21:15)
[2022-04-22] MEDS: carvediloL 25 MG TABLET PO SCH ×2 (09:28→21:12)
[2022-04-22] MEDS: cefTRIAXone 1,000 MG in SODIUM CHLORIDE 0.9% 100 ML IV SCH (09:29)
[2022-04-22] MEDS: LIDOCAINE 5% PATCH TRANSDERM SCH (09:29)
[2022-04-22] MEDS: BENZONATATE 100 MG CAPSULE PO PRN ×2 (09:34→21:11)
[2022-04-22] MEDS: ATORVASTATIN 40 MG TABLET PO SCH (21:11)
[2022-04-22] MEDS: MELATONIN 3 MG TABLET PO SCH (21:11)
[2022-04-22] MEDS: traZODone 50 MG TABLET PO SCH (21:12)
[2022-04-23] MEDS: VANCOMYCIN 125 MG CAPSULE PO SCH ×4 (02:45→21:08)
[2022-04-23 05:43] LABS: Basophils % 0.1 % (0.0-0.8); Eosinophils # 0.3 10*3/uL (0.0-0.87); Eosinophils % 2.9 % (0.00-10.9); Hematocrit 32.9 VOL% (35.7-47.0); Hemoglobin 10.8 GM/DL (12.0-16.0); Immature Granulocytes % 0.5 %; Immature Granulocytes Absolute 0.05 #; Lymphocytes # 1.6 10*3/uL (1.4-4.0); Lymphocytes % 17.1 % (21.3-54.2); Mean Corpuscular HGB Conc 32.8 GM/DL (32-36); Mean Platelet Volume 9.8 FL (9.6-12.0); Monocytes # 0.5 10*3/uL (0.11-0.8); Monocytes % 5.1 % (1.7-12.7); Neutrophils % 74.3 % (38.7-73.9); Platelet Count 258 T/CUMM (130-400); White Blood Count 9.6 T/CUMM (4-12)
[2022-04-23] MEDS: MORPHINE ER 15 MG TABLET PO PRN ×2 (05:54→18:46)
[2022-04-23 06:06] LABS: Calcium 8.8 MG/DL (8.5-10.1); Osmolality,Calculated 275.5 MOS/KG (273-304); Potassium 3.9 MMOL/L (3.5-5.1)
[2022-04-23] MEDS: GABAPENTIN 300 MG CAPSULE PO SCH ×3 (08:41→21:07)
[2022-04-23] MEDS: ASPIRIN EC 81 MG TABLET PO SCH (08:41)
[2022-04-23] MEDS: MULTIVITAMIN (CENTRUM) TABLET PO SCH (08:42)
[2022-04-23] MEDS: CYANOCOBALAMIN 500 MCG TABLET PO SCH (08:42)
[2022-04-23] MEDS: SERTRALINE 25 MG TABLET PO SCH (08:42)
[2022-04-23] MEDS: MAGNESIUM OXIDE 400 MG TABLET PO SCH (08:42)
[2022-04-23] MEDS: PANTOPRAZOLE 40 MG TABLET PO SCH (08:42)
[2022-04-23] MEDS: carvediloL 25 MG TABLET PO SCH ×2 (08:43→21:08)
[2022-04-23] MEDS: lisinopriL 20 MG TABLET PO SCH (08:43)
[2022-04-23] MEDS: DOCUSATE SODIUM 100 MG CAPSULE PO SCH ×2 (08:44→21:07)
[2022-04-23] MEDS: ONDANSETRON 4 MG/2 ML VIAL IV PRN (08:46)
[2022-04-23] MEDS: BENZONATATE 100 MG CAPSULE PO PRN ×2 (10:06→21:07)
[2022-04-23] MEDS: LIDOCAINE 5% PATCH TRANSDERM SCH (15:51)
[2022-04-23] MEDS: traZODone 50 MG TABLET PO SCH (21:07)
[2022-04-23] MEDS: MELATONIN 3 MG TABLET PO SCH (21:07)
[2022-04-23] MEDS: ATORVASTATIN 40 MG TABLET PO SCH (21:08)
[2022-04-23] MEDS: PROMETHAZINE 25 MG TABLET PO PRN (21:12)
[2022-04-24] MEDS: VANCOMYCIN 125 MG CAPSULE PO SCH ×4 (03:58→21:11)
[2022-04-24] MEDS: MORPHINE ER 15 MG TABLET PO PRN ×2 (06:16→18:17)
[2022-04-24] MEDS: PROMETHAZINE 25 MG TABLET PO PRN ×3 (06:26→21:11)
[2022-04-24] MEDS: LIDOCAINE 5% PATCH TRANSDERM SCH (09:06)
[2022-04-24] MEDS: PANTOPRAZOLE 40 MG TABLET PO SCH (09:07)
[2022-04-24] MEDS: SERTRALINE 25 MG TABLET PO SCH (09:08)
[2022-04-24] MEDS: MULTIVITAMIN (CENTRUM) TABLET PO SCH (09:09)
[2022-04-24] MEDS: GABAPENTIN 300 MG CAPSULE PO SCH ×3 (09:09→21:10)
[2022-04-24] MEDS: BENZONATATE 100 MG CAPSULE PO PRN ×2 (09:09→21:10)
[2022-04-24] MEDS: lisinopriL 20 MG TABLET PO SCH (09:10)
[2022-04-24] MEDS: ASPIRIN EC 81 MG TABLET PO SCH (09:11)
[2022-04-24] MEDS: DOCUSATE SODIUM 100 MG CAPSULE PO SCH ×2 (09:11→23:27)
[2022-04-24] MEDS: carvediloL 25 MG TABLET PO SCH ×2 (09:13→21:11)
[2022-04-24] MEDS: MELATONIN 3 MG TABLET PO SCH (21:09)
[2022-04-24] MEDS: traZODone 50 MG TABLET PO SCH (21:09)
[2022-04-24] MEDS: ATORVASTATIN 40 MG TABLET PO SCH (21:11)
[2022-04-25] MEDS: VANCOMYCIN 125 MG CAPSULE PO SCH ×4 (03:09→20:29)
[2022-04-25 05:39] LABS: Basophils % 0.4 % (0.0-0.8); Eosinophils # 0.3 10*3/uL (0.0-0.87); Hematocrit 32.2 VOL% (35.7-47.0); Hemoglobin 10.5 GM/DL (12.0-16.0); Immature Granulocytes % 0.4 %; Immature Granulocytes Absolute 0.03 #; Lymphocytes # 1.5 10*3/uL (1.4-4.0); Lymphocytes % 17.8 % (21.3-54.2); Mean Corpuscular HGB Conc 32.6 GM/DL (32-36); Mean Platelet Volume 10.2 FL (9.6-12.0); Monocytes # 0.5 10*3/uL (0.11-0.8); Monocytes % 6.1 % (1.7-12.7); Neutrophils % 72.3 % (38.7-73.9); Platelet Count 267 T/CUMM (130-400); Red Blood Count 3.39 MC/CUMM (3.8-5.5); White Blood Count 8.5 T/CUMM (4-12)
[2022-04-25 05:59] LABS: Calcium 9.3 MG/DL (8.5-10.1); Osmolality,Calculated 278.7 MOS/KG (273-304); Potassium 3.8 MMOL/L (3.5-5.1)
[2022-04-25] MEDS: MORPHINE ER 15 MG TABLET PO PRN ×2 (06:13→18:32)
[2022-04-25] MEDS: GABAPENTIN 300 MG CAPSULE PO SCH ×3 (09:09→20:28)
[2022-04-25] MEDS: PANTOPRAZOLE 40 MG TABLET PO SCH (09:10)
[2022-04-25] MEDS: ASPIRIN EC 81 MG TABLET PO SCH (09:10)
[2022-04-25] MEDS: BENZONATATE 100 MG CAPSULE PO PRN ×2 (09:10→20:29)
[2022-04-25] MEDS: CYANOCOBALAMIN 500 MCG TABLET PO SCH (09:10)
[2022-04-25] MEDS: lisinopriL 20 MG TABLET PO SCH (09:10)
[2022-04-25] MEDS: PROMETHAZINE 25 MG TABLET PO PRN ×3 (09:11→22:21)
[2022-04-25] MEDS: SERTRALINE 25 MG TABLET PO SCH (09:11)
[2022-04-25] MEDS: MAGNESIUM OXIDE 400 MG TABLET PO SCH (09:11)
[2022-04-25] MEDS: MULTIVITAMIN (CENTRUM) TABLET PO SCH (09:11)
[2022-04-25] MEDS: carvediloL 25 MG TABLET PO SCH ×2 (09:11→20:29)
[2022-04-25] MEDS: DOCUSATE SODIUM 100 MG CAPSULE PO SCH ×2 (09:18→20:06)
[2022-04-25] MEDS: LIDOCAINE 5% PATCH TRANSDERM SCH (09:19)
[2022-04-25] MEDS: ACETAMINOPHEN 325 MG TABLET PO PRN (14:14)
[2022-04-25] MEDS: ATORVASTATIN 40 MG TABLET PO SCH (20:29)
[2022-04-25] MEDS: MELATONIN 3 MG TABLET PO SCH (20:29)
[2022-04-25] MEDS: traZODone 50 MG TABLET PO SCH (20:29)
[2022-04-26] MEDS: VANCOMYCIN 125 MG CAPSULE PO SCH ×2 (03:34→08:48)
[2022-04-26] MEDS: PROMETHAZINE 25 MG TABLET PO PRN ×2 (03:34→08:48)
[2022-04-26] MEDS: MORPHINE ER 15 MG TABLET PO PRN (05:54)
[2022-04-26] MEDS: LIDOCAINE 5% PATCH TRANSDERM SCH (08:47)
[2022-04-26] MEDS: GABAPENTIN 300 MG CAPSULE PO SCH (08:47)
[2022-04-26] MEDS: carvediloL 25 MG TABLET PO SCH (08:48)
[2022-04-26] MEDS: ASPIRIN EC 81 MG TABLET PO SCH (08:48)
[2022-04-26] MEDS: PANTOPRAZOLE 40 MG TABLET PO SCH (08:49)
[2022-04-26] MEDS: SERTRALINE 25 MG TABLET PO SCH (08:49)
[2022-04-26] MEDS: lisinopriL 20 MG TABLET PO SCH (08:49)
[2022-04-26] MEDS: BENZONATATE 100 MG CAPSULE PO PRN (08:49)
[2022-04-26] MEDS: MULTIVITAMIN (CENTRUM) TABLET PO SCH (08:49)
[2022-04-26] MEDS: DOCUSATE SODIUM 100 MG CAPSULE PO SCH (08:50)
[2022-04-26 11:35] VITALS: BP 104/61
== END 2022-04-26 14:43 | disposition home health service (06) | DRG 371 ==
LOC: N.EDINP 13:57 → N.ED 13:57 → N.5E 19:35
PROVIDERS: ADMIT Family Medicine; ATTEND Family Medicine